=== PATIENT | male | born 1935 ===

== ENCOUNTER → 2017-10-10 11:03 | Outpatient (CLI) | payer OTHER, SELFPAY ==
[2017-10-10 12:17] LABS: INR 2.2 (0.9-1.3)
[2017-10-10 12:59] LABS: Appearance Urine UA CLOUDY; Bilirubin Urine UA NEGATIVE (NEGATIVE); Color Urine UA YELLOW; Glucose Urine UA NEGATIVE (Negative); Ketones Urine UA NEGATIVE (NEGATIVE); Leukocyte Esterase Urine UA 3+ (NEGATIVE); Nitrite Urine UA NEGATIVE (NEGATIVE); Occult Blood Urine UA 3+ (Negative); Protein Urine UA NEGATIVE (Negative); Specific Gravity Urine UA 1.015 (1.000-1.035); Urobilinogen Urine UA 0.2 E.U./dL (0.2)
[2017-10-10 13:08] LABS: RBC Urine 10-30/HPF (0-5/HPF)
[2017-10-10 13:09] LABS: Bacteria Urine Many (>30); Culture Indicated Urine Specimen Cultured; WBC Urine 30-100/HPF (0-5/HPF)
== END ==
PROVIDERS: Family Provider Emergency Medicine; PCP Family Medicine; Visit Provider Family Medicine
DX: I48.91 Unspecified atrial fibrillation (principal); N39.0 Urinary tract infection, site not specified
CPT/HCPCS: 36415; 81001; 85610; 87086; 87186

== ENCOUNTER → 2017-11-27 08:55 | Outpatient (CLI) | payer OTHER, SELFPAY ==
--- NOTE | 2017-11-27 | DI.CT.S_ITS ---
PROCEDURE: CT ABDOMEN PELVIS WO/W CON INDICATIONS: GROSS HEMATURIA PAINLESS TECHNIQUE: Optional 5 mm thick noncontrast images acquired from the diaphragm to the symphysis pubis. After the administration of intravenous contrast, 5 mm thick images acquired from the diaphragm to the symphysis pubis after a 10-minute delay. 2 mm thick coronal and sagittal reformats were then performed of the kidneys and ureters. For radiation dose reduction, the following was used: automated exposure control, adjustment of mA and/or kV according to patient size. COMPARISON: None. FINDINGS: Image quality: Excellent. Lung bases: Lung bases are clear. Heart size is at or just above the upper limits of normal. Urinary system: Both kidneys are normal in size, without hydronephrosis or nephrolithiasis on pre-contrast images. No perinephric fat stranding. There is normal bilateral renal enhancement. Renal calyces appear normal in morphology when filled with contrast. Opacified portions of both ureters demonstrate normal caliber. Bladder wall thickness is normal. No calcified bladder stones. Other solid organs: Liver is normal in size and enhancement. Gallbladder contains a large 2 cm gallstone but does not appear inflamed. Biliary system is non dilated. Pancreas enhances normally. Spleen is normal in size and enhancement. No adrenal nodules. Peritoneum and bowel: Bowel loops demonstrate normal wall thickness and caliber. No free fluid or air. Nodes and vessels: No retroperitoneal or mesenteric adenopathy by size criteria. Aorta and inferior vena cava are normal in size. Abdominal wall: No ventral hernias. Pelvis: No pathologic free pelvic fluid. No inguinal hernias or adenopathy. Prostatic enlargement. Bones: No suspicious bony lesions. No vertebral body compression fractures. IMPRESSION: Urinary tract stones are not identified, a urothelial mass lesion or renal cortical mass is not seen. Note is made of prominent enlargement of the prostate gland, with central and peripheral heterogeneity and peripheral zone calcifications greater on the right than the left. Dictated by: Serjio Fernando M.D. on 11/27/2017 at 13:58 Approved by: Serjio Fernando M.D. on 11/27/2017 at 14:00
[2017-11-27 09:25] LABS: BUN Creatinine Ratio 17.5 (6-22); Blood Urea Nitrogen 21 mg/dL (9-20); Estimated Glomerular Filt Rate 58.1 mL/min (>60)
== END ==
PROVIDERS: Family Provider Emergency Medicine; PCP Family Medicine; Visit Provider Urology
DX: R31.0 Gross hematuria (principal)
CPT/HCPCS: 36415; 74178; 82565; 84520; Q9967

== ENCOUNTER → 2017-12-04 12:05 | Outpatient (CLI) | payer OTHER, SELFPAY ==
[2017-12-04 12:52] LABS: INR 2.1 (0.9-1.3); Prothrombin Time 22.9 SECONDS (10.1-12.7)
[2017-12-04 13:34] LABS: Appearance Urine UA CLEAR; Bilirubin Urine UA NEGATIVE (NEGATIVE); Color Urine UA YELLOW; Glucose Urine UA NEGATIVE (Normal); Ketones Urine UA NEGATIVE (NEGATIVE); Leukocyte Esterase Urine UA TRACE (NEGATIVE); Nitrite Urine UA Negative (Negative); Occult Blood Urine UA 1+ (Negative); Protein Urine UA NEGATIVE (Negative); Urobilinogen Urine UA 0.2 E.U./dL (0.2)
[2017-12-04 14:03] LABS: RBC Urine 1-5/HPF (0-5/HPF); Squamous Epithelial Cell Urine 1-5 /HPF; WBC Urine 1-5/HPF (0-5/HPF)
[2017-12-04 14:04] LABS: Amorphous Sediment Urine 1+; Bacteria Urine Occasional (0-1); Culture Indicated Urine Specimen Cultured; Mucus Urine 1+ (Negative)
== END ==
PROVIDERS: Family Provider Emergency Medicine; PCP Family Medicine; Visit Provider Family Medicine
DX: N39.0 Urinary tract infection, site not specified (principal); I48.91 Unspecified atrial fibrillation
CPT/HCPCS: 36415; 81001; 85610; 87086

== ENCOUNTER → 2018-01-15 12:47 | Outpatient (CLI) | payer OTHER, SELFPAY ==
[2018-01-15 13:02] LABS: Bacteria Urine None Seen
[2018-01-15 13:33] LABS: Appearance Urine UA CLEAR; Bilirubin Urine UA NEGATIVE (NEGATIVE); Color Urine UA YELLOW; Glucose Urine UA NEGATIVE (Normal); Ketones Urine UA NEGATIVE (NEGATIVE); Leukocyte Esterase Urine UA TRACE (NEGATIVE); Nitrite Urine UA Negative (Negative); Occult Blood Urine UA 3+ (Negative); Protein Urine UA NEGATIVE (Negative); Specific Gravity Urine UA 1.025 (1.000-1.035); Urobilinogen Urine UA 0.2 E.U./dL (0.2)
[2018-01-15 13:47] LABS: Prothrombin Time 21.3 SECONDS (10.1-12.7); RBC Urine 5-10/HPF (0-5/HPF); WBC Urine 5-10/HPF (0-5/HPF)
[2018-01-15 13:48] LABS: Culture Indicated Urine Specimen Cultured
== END ==
PROVIDERS: PCP Family Medicine; Visit Provider Family Medicine
DX: N39.0 Urinary tract infection, site not specified (principal); I48.91 Unspecified atrial fibrillation
CPT/HCPCS: 36415; 81001; 85610; 87086

== ENCOUNTER → 2018-02-07 12:36 | Outpatient (CLI) | payer OTHER, SELFPAY ==
[2018-02-07 13:38] LABS: Appearance Urine UA CLEAR; Bilirubin Urine UA NEGATIVE (NEGATIVE); Color Urine UA YELLOW; Glucose Urine UA NEGATIVE (Normal); Ketones Urine UA NEGATIVE (NEGATIVE); Leukocyte Esterase Urine UA TRACE (NEGATIVE); Nitrite Urine UA Negative (Negative); Occult Blood Urine UA 3+ (Negative); Protein Urine UA NEGATIVE (Negative); Specific Gravity Urine UA 1.025 (1.000-1.035); Urobilinogen Urine UA 0.2 E.U./dL (0.2)
[2018-02-07 13:59] LABS: Bacteria Urine Few (2-10); RBC Urine 5-10/HPF (0-5/HPF); Squamous Epithelial Cell Urine 1-5 /HPF; WBC Urine 5-10/HPF (0-5/HPF)
[2018-02-07 14:00] LABS: Culture Indicated Urine Specimen Cultured
[2018-02-07 14:03] LABS: INR 1.7 (0.9-1.3); Prothrombin Time 18.7 SECONDS (10.1-12.7)
== END ==
PROVIDERS: Family Provider Emergency Medicine; PCP Family Medicine; Visit Provider Urology
DX: R31.0 Gross hematuria (principal)
CPT/HCPCS: 36415; 81001; 85610; 87086

== ENCOUNTER → 2018-03-13 12:35 | Outpatient (CLI) | payer OTHER, SELFPAY ==
[2018-03-13 13:40] LABS: Bilirubin Urine UA 1+ (NEGATIVE); Color Urine UA YELLOW; Glucose Urine UA NEGATIVE (Normal); Ketones Urine UA TRACE (NEGATIVE); Leukocyte Esterase Urine UA 2+ (NEGATIVE); Nitrite Urine UA NEGATIVE (Negative); Occult Blood Urine UA 2+ (Negative); Protein Urine UA 1+ (Negative); Specific Gravity Urine UA 1.025 (1.000-1.035); Urobilinogen Urine UA 0.2 E.U./dL (0.2); pH Urine UA 5.5 (4.5-8.0)
[2018-03-13 14:22] LABS: INR 2.9 (0.9-1.3); Prothrombin Time 31.9 SECONDS (10.1-12.7)
[2018-03-13 14:23] LABS: Appearance Urine UA Slightly Cloudy
[2018-03-13 14:25] LABS: Ictotest Urine Positive (Negative); RBC Urine 5-10/HPF (0-5/HPF); Squamous Epithelial Cell Urine 0-1 /HPF; WBC Urine 10-30/HPF (0-5/HPF)
[2018-03-13 14:26] LABS: Bacteria Urine Few (2-10); Culture Indicated Urine Specimen Cultured
== END ==
PROVIDERS: Family Provider Family Medicine; PCP Family Medicine; Referring Provider Urology; Visit Provider Emergency Medicine
DX: I48.91 Unspecified atrial fibrillation (principal); N39.0 Urinary tract infection, site not specified
CPT/HCPCS: 36415; 81001; 85610; 87077; 87086; 87186

== ENCOUNTER → 2018-04-04 11:09 | Outpatient (CLI) | payer OTHER, SELFPAY ==
[2018-04-04 11:26] LABS: Bacteria Urine None Seen; RBC Urine None Seen (0-5/HPF); WBC Urine None Seen (0-5/HPF)
[2018-04-04 11:59] LABS: INR 1.7 (0.9-1.3)
[2018-04-04 12:06] LABS: Appearance Urine UA CLEAR; Bilirubin Urine UA NEGATIVE (NEGATIVE); Color Urine UA YELLOW; Glucose Urine UA NEGATIVE (Normal); Ketones Urine UA NEGATIVE (NEGATIVE); Leukocyte Esterase Urine UA TRACE (NEGATIVE); Nitrite Urine UA NEGATIVE (Negative); Occult Blood Urine UA NEGATIVE (Negative); Protein Urine UA NEGATIVE (Negative); Urobilinogen Urine UA 0.2 E.U./dL (0.2); pH Urine UA 5.5 (4.5-8.0)
[2018-04-04 12:23] LABS: Culture Indicated Urine Cult Not Indicated; Urine Comments Microscopic Normal
== END ==
PROVIDERS: Family Provider Family Medicine; PCP Family Medicine; Visit Provider Family Medicine
DX: N39.0 Urinary tract infection, site not specified (principal); I48.91 Unspecified atrial fibrillation
CPT/HCPCS: 36415; 81001; 85610

== ENCOUNTER → 2018-04-17 12:16 | Outpatient (CLI) | payer OTHER, SELFPAY ==
[2018-04-17 12:34] LABS: Bacteria Urine None Seen
[2018-04-17 13:08] LABS: Appearance Urine UA CLEAR; Bilirubin Urine UA NEGATIVE (NEGATIVE); Color Urine UA YELLOW; Glucose Urine UA NEGATIVE (Normal); Ketones Urine UA NEGATIVE (NEGATIVE); Leukocyte Esterase Urine UA NEGATIVE (NEGATIVE); Nitrite Urine UA NEGATIVE (Negative); Occult Blood Urine UA TRACE-INTACT (Negative); Protein Urine UA NEGATIVE (Negative); Urobilinogen Urine UA 0.2 E.U./dL (0.2); pH Urine UA 5.5 (4.5-8.0)
[2018-04-17 13:29] LABS: Culture Indicated Urine Cult Not Indicated; RBC Urine 0-1/HPF (0-5/HPF); Squamous Epithelial Cell Urine 0-1 /HPF; WBC Urine 0-1/HPF (0-5/HPF)
[2018-04-17 15:04] LABS: Prothrombin Time 21.8 SECONDS (10.1-12.7)
== END ==
PROVIDERS: Family Provider Family Medicine; PCP Family Medicine; Visit Provider Family Medicine
DX: I48.91 Unspecified atrial fibrillation (principal); N39.0 Urinary tract infection, site not specified
CPT/HCPCS: 36415; 81001; 85610

== ENCOUNTER → 2018-05-06 13:31 | Outpatient (CLI) | payer OTHER, SELFPAY ==
[2018-05-06 14:15] LABS: Appearance Urine UA CLOUDY; Bilirubin Urine UA NEGATIVE (NEGATIVE); Color Urine UA YELLOW; Glucose Urine UA NEGATIVE (Normal); Ketones Urine UA NEGATIVE (NEGATIVE); Leukocyte Esterase Urine UA 1+ (NEGATIVE); Nitrite Urine UA NEGATIVE (Negative); Occult Blood Urine UA 3+ (Negative); Protein Urine UA TRACE (Negative); Specific Gravity Urine UA 1.025 (1.000-1.035); Urobilinogen Urine UA 0.2 E.U./dL (0.2)
[2018-05-06 14:33] LABS: Prothrombin Time 35.7 SECONDS (10.1-12.7)
[2018-05-06 14:44] LABS: Bacteria Urine Moderate (10-30); RBC Urine >100/HPF (0-5/HPF); Squamous Epithelial Cell Urine 1-5 /HPF; WBC Urine 5-10/HPF (0-5/HPF)
[2018-05-06 14:45] LABS: Culture Indicated Urine Specimen Cultured
== END ==
PROVIDERS: PCP Family Medicine; Referring Provider Urology; Visit Provider Emergency Medicine
DX: N39.0 Urinary tract infection, site not specified (principal); I48.91 Unspecified atrial fibrillation
CPT/HCPCS: 36415; 81001; 85610; 87086

== ENCOUNTER → 2018-05-28 11:49 | Outpatient (CLI) | payer OTHER, SELFPAY ==
[2018-05-28 12:17] LABS: RBC Urine None Seen (0-5/HPF)
[2018-05-28 12:38] LABS: INR 1.6 (0.9-1.3); Prothrombin Time 19.1 SECONDS (10.1-12.7)
[2018-05-28 12:39] LABS: Appearance Urine UA CLEAR; Bilirubin Urine UA NEGATIVE (NEGATIVE); Color Urine UA YELLOW; Glucose Urine UA NEGATIVE (Negative); Ketones Urine UA NEGATIVE (NEGATIVE); Leukocyte Esterase Urine UA 1+ (NEGATIVE); Nitrite Urine UA NEGATIVE (Negative); Occult Blood Urine UA TRACE-INTACT (Negative); Protein Urine UA NEGATIVE (Negative); Urobilinogen Urine UA 0.2 E.U./dL (0.2); pH Urine UA 5.5 (4.5-8.0)
[2018-05-28 12:42] LABS: Blood Urea Nitrogen 24 mg/dL (9-20)
[2018-05-28 12:48] LABS: WBC Urine 5-10/HPF (0-5/HPF)
[2018-05-28 12:49] LABS: Bacteria Urine Few (2-10); Culture Indicated Urine Specimen Cultured; Squamous Epithelial Cell Urine 1-5 /HPF
== END ==
PROVIDERS: PCP Family Medicine; Visit Provider Emergency Medicine
DX: N39.0 Urinary tract infection, site not specified (principal); I48.91 Unspecified atrial fibrillation; R31.0 Gross hematuria
CPT/HCPCS: 36415; 81001; 84520; 85610; 87086

== ENCOUNTER → 2018-07-10 14:25 | Outpatient (CLI) | payer OTHER, SELFPAY ==
[2018-07-10 15:19] LABS: INR 2.8 (0.9-1.3); Prothrombin Time 32.6 SECONDS (10.1-12.7)
== END ==
PROVIDERS: Family Provider Emergency Medicine; PCP Family Medicine; Referring Provider Urology; Visit Provider Family Medicine
DX: N39.0 Urinary tract infection, site not specified (principal); I48.91 Unspecified atrial fibrillation
CPT/HCPCS: 36415; 85610

== ENCOUNTER → 2018-08-07 09:43 | Outpatient (CLI) | payer OTHER, SELFPAY ==
[2018-08-07 11:07] LABS: INR 2.4 (0.9-1.3); Prothrombin Time 27.9 SECONDS (10.1-12.7)
== END ==
PROVIDERS: Emergency Medicine; PCP Family Medicine; Visit Provider Family Medicine
DX: N39.0 Urinary tract infection, site not specified (principal); I48.91 Unspecified atrial fibrillation
CPT/HCPCS: 36415; 85610

== ENCOUNTER → 2018-09-29 10:47 | Outpatient (CLI) | payer OTHER, SELFPAY ==
[2018-09-29 12:05] LABS: Appearance Urine UA CLEAR; Bilirubin Urine UA NEGATIVE (NEGATIVE); Color Urine UA YELLOW; Glucose Urine UA NEGATIVE (Negative); Ketones Urine UA NEGATIVE (NEGATIVE); Leukocyte Esterase Urine UA TRACE (NEGATIVE); Nitrite Urine UA NEGATIVE (Negative); Occult Blood Urine UA 2+ (Negative); Protein Urine UA NEGATIVE (Negative); Specific Gravity Urine UA 1.025 (1.000-1.035); Urobilinogen Urine UA 0.2 E.U./dL (0.2)
[2018-09-29 12:17] LABS: Bacteria Urine Few (2-10); Culture Indicated Urine Cult Not Indicated; RBC Urine 5-10/HPF (0-5/HPF); Squamous Epithelial Cell Urine 1-5 /HPF (0-5/HPF); WBC Urine 1-5/HPF (0-5/HPF)
[2018-09-29 12:36] LABS: INR 1.9 (0.9-1.3); Prothrombin Time 21.5 SECONDS (10.1-12.7)
== END ==
PROVIDERS: PCP Family Medicine; Visit Provider Emergency Medicine
DX: I48.91 Unspecified atrial fibrillation (principal); N39.0 Urinary tract infection, site not specified
CPT/HCPCS: 36415; 81001; 85610

== ENCOUNTER → 2018-10-31 10:24 | Outpatient (CLI) | payer OTHER, SELFPAY ==
[2018-10-31 10:50] LABS: Bacteria Urine None Seen
[2018-10-31 11:53] LABS: Appearance Urine UA CLEAR; Bilirubin Urine UA NEGATIVE (NEGATIVE); Color Urine UA YELLOW; Glucose Urine UA NEGATIVE (Negative); Ketones Urine UA NEGATIVE (NEGATIVE); Leukocyte Esterase Urine UA 1+ (NEGATIVE); Nitrite Urine UA NEGATIVE (Negative); Occult Blood Urine UA 3+ (Negative); Protein Urine UA NEGATIVE (Negative); Specific Gravity Urine UA 1.015 (1.000-1.035); Urobilinogen Urine UA 0.2 E.U./dL (0.2); pH Urine UA 6.5 (4.5-8.0)
[2018-10-31 11:54] LABS: INR 2.1 (0.9-1.3); Prothrombin Time 24.4 SECONDS (10.1-12.7)
[2018-10-31 12:09] LABS: Culture Indicated Urine Cult Not Indicated; RBC Urine 10-30/HPF (0-5/HPF); Squamous Epithelial Cell Urine 5-10 /HPF (0-5/HPF); WBC Urine 10-30/HPF (0-5/HPF)
== END ==
PROVIDERS: PCP Family Medicine; Visit Provider Family Medicine
DX: N39.0 Urinary tract infection, site not specified (principal); I48.91 Unspecified atrial fibrillation
CPT/HCPCS: 36415; 81001; 85610

== ENCOUNTER → 2018-12-23 11:21 | Outpatient (CLI) | payer OTHER, MEDICARE, SELFPAY ==
[2018-12-23 12:17] LABS: INR 2.3 (0.9-1.3); Prothrombin Time 26.4 SECONDS (10.1-12.7)
[2018-12-23 12:37] LABS: Appearance Urine UA CLOUDY; Bilirubin Urine UA NEGATIVE (NEGATIVE); Color Urine UA YELLOW; Glucose Urine UA NEGATIVE (Negative); Ketones Urine UA NEGATIVE (NEGATIVE); Leukocyte Esterase Urine UA 3+ (NEGATIVE); Nitrite Urine UA NEGATIVE (Negative); Occult Blood Urine UA 3+ (Negative); Protein Urine UA NEGATIVE (Negative); Urobilinogen Urine UA 0.2 E.U./dL (0.2)
[2018-12-23 12:44] LABS: Bacteria Urine Many (>30); RBC Urine 10-30/HPF (0-5/HPF); Renal Epithelial Cells Urine 5-10/HPF (0-1/HPF); Squamous Epithelial Cell Urine 1-5 /HPF (0-5/HPF); WBC Urine 10-30/HPF (0-5/HPF)
[2018-12-23 12:45] LABS: Culture Indicated Urine Specimen Cultured
== END ==
PROVIDERS: Visit Provider Family Medicine
DX: N39.0 Urinary tract infection, site not specified (principal)
CPT/HCPCS: 36415; 81001; 85610; 87077; 87086; 87186

== ENCOUNTER → 2019-01-21 09:49 | Outpatient (CLI) | payer OTHER, MEDICARE, SELFPAY ==
[2019-01-21 10:32] LABS: INR 2.8 (0.9-1.3); Prothrombin Time 33.4 SECONDS (10.1-12.7)
[2019-01-21 10:35] LABS: Hemoglobin A1C% w Est Avg Glu 5.7 % (4.0-6.0)
[2019-01-21 10:36] LABS: Hematocrit 43.5 % (41-53); Hemoglobin 14.9 g/dL (13.5-17.5); Mean Corpuscular HGB Conc 34.4 % (30-36); Mean Corpuscular Hemoglobin 31.2 PG (26-34); Mean Corpuscular Volume 90.7 fL (80-100); Platelet Count 274 X10^3/uL (150-400); Red Cell Distribution Width 14.2 % (11.6-14.8); White Blood Cell Count 6.3 X10^3/uL (4.5-11.0)
[2019-01-21 10:54] LABS: Alanine Aminotransferase 19 IU/L (21-72); Albumin 4.2 g/dL (3.5-5.0); Albumin Globulin Ratio 1.3 (1.0-2.8); Alkaline Phosphatase 71 U/L (38-126); Aspartate Aminotransferase 31 IU/L (17-59); BUN Creatinine Ratio 16.4 (6-22); Bilirubin Total 1.8 mg/dL (0.2-1.3); Blood Urea Nitrogen 18 mg/dL (9-20); Calcium 10.2 mg/dL (8.4-10.2); Carbon Dioxide 30 mmol/L (22-32); Chloride 99 mmol/L (98-107); Cholesterol 179 mg/dL (140-199); Estimated Glomerular Filt Rate > 60.0 mL/min (>60); Globulin 3.3 g/dL (1.7-4.1); Glucose 143 mg/dL (80-110); HDL Cholesterol 50 mg/dL (40-60); HEMOLYSIS < 15 (0-50); LDL Cholesterol Calculated 109 mg/dL (<100); Potassium 4.4 mmol/L (3.4-5.1); Sodium 139 mmol/L (137-145); Total Protein 7.5 g/dL (6.3-8.2); Triglycerides 102 mg/dL (35-150)
[2019-01-21 11:09] LABS: Appearance Urine UA CLEAR; Bilirubin Urine UA NEGATIVE (NEGATIVE); Color Urine UA YELLOW; Glucose Urine UA NEGATIVE (Negative); Ketones Urine UA NEGATIVE (NEGATIVE); Leukocyte Esterase Urine UA 1+ (NEGATIVE); Nitrite Urine UA NEGATIVE (Negative); Occult Blood Urine UA 3+ (Negative); Protein Urine UA NEGATIVE (Negative); Urobilinogen Urine UA 0.2 E.U./dL (0.2)
[2019-01-21 11:21] LABS: Bacteria Urine Few (2-10); Culture Indicated Urine Specimen Cultured; RBC Urine >100/HPF (0-5/HPF); Squamous Epithelial Cell Urine 1-5 /HPF (0-5/HPF); WBC Urine 5-10/HPF (0-5/HPF)
[2019-01-21 11:25] LABS: Thyroid Stimulating Hormone 1.21 uIU/mL (0.47-4.68)
[2019-01-21 11:57] LABS: Neutrophils Absolute Manual 4095 /uL (3000-5900); Total Cells Counted 100
[2019-01-21 11:58] LABS: Poikilocytosis 1+
== END ==
PROVIDERS: Family Provider Family Medicine; PCP Family Medicine; Visit Provider Emergency Medicine
DX: I42.8 Other cardiomyopathies (principal); N39.0 Urinary tract infection, site not specified; E11.9 Type 2 diabetes mellitus without complications; I10 Essential (primary) hypertension; I48.91 Unspecified atrial fibrillation
CPT/HCPCS: 36415; 80053; 80061; 81001; 83036; 84443; 85025; 85610; 87086

== ENCOUNTER → 2019-03-13 16:48 | Outpatient (CLI) | payer OTHER, SELFPAY ==
[2019-03-13 17:25] LABS: Appearance Urine UA SL CLOUDY; Bilirubin Urine UA NEGATIVE (NEGATIVE); Color Urine UA YELLOW; Glucose Urine UA NEGATIVE (Negative); Ketones Urine UA NEGATIVE (NEGATIVE); Leukocyte Esterase Urine UA 2+ (NEGATIVE); Nitrite Urine UA NEGATIVE (Negative); Occult Blood Urine UA 3+ (Negative); Protein Urine UA NEGATIVE (Negative); Urobilinogen Urine UA 0.2 E.U./dL (0.2)
[2019-03-13 17:31] LABS: Bacteria Urine Few (2-10); Culture Indicated Urine Specimen Cultured; RBC Urine 10-30/HPF (0-5/HPF); Squamous Epithelial Cell Urine 0-1 /HPF (0-5/HPF); WBC Urine 10-30/HPF (0-5/HPF)
[2019-03-13 17:39] LABS: INR 1.8 (0.9-1.3); Prothrombin Time 20.9 SECONDS (10.1-12.7)
== END ==
PROVIDERS: Family Provider Family Medicine; PCP Family Medicine; Visit Provider Emergency Medicine
DX: N39.0 Urinary tract infection, site not specified (principal); I42.8 Other cardiomyopathies
CPT/HCPCS: 36415; 81001; 85610; 87086

== ENCOUNTER → 2019-04-01 13:34 | Outpatient (CLI) | payer OTHER, SELFPAY ==
[2019-04-01 13:50] LABS: Bacteria Urine None Seen
[2019-04-01 14:40] LABS: Appearance Urine UA SL CLOUDY; Bilirubin Urine UA NEGATIVE (NEGATIVE); Color Urine UA YELLOW; Glucose Urine UA NEGATIVE (Negative); Ketones Urine UA NEGATIVE (NEGATIVE); Leukocyte Esterase Urine UA 2+ (NEGATIVE); Nitrite Urine UA NEGATIVE (Negative); Occult Blood Urine UA 3+ (Negative); Protein Urine UA NEGATIVE (Negative); Specific Gravity Urine UA 1.015 (1.000-1.035); Urobilinogen Urine UA 0.2 E.U./dL (0.2); pH Urine UA 5.5 (4.5-8.0)
[2019-04-01 14:57] LABS: INR 2.5 (0.9-1.3); Prothrombin Time 28.7 SECONDS (10.1-12.7)
[2019-04-01 14:58] LABS: RBC Urine 10-30/HPF (0-5/HPF); Squamous Epithelial Cell Urine 0-1 /HPF (0-5/HPF); WBC Urine 5-10/HPF (0-5/HPF)
[2019-04-01 14:59] LABS: Culture Indicated Urine Specimen Cultured
== END ==
PROVIDERS: Family Provider Urology; PCP Family Medicine; Visit Provider Emergency Medicine
DX: I42.8 Other cardiomyopathies (principal); N39.0 Urinary tract infection, site not specified
CPT/HCPCS: 36415; 81001; 85610; 87086

== ENCOUNTER → 2019-04-29 11:05 | Outpatient (CLI) | payer OTHER, SELFPAY ==
[2019-04-29 12:05] LABS: Add Manual Diff / Slide Review NO; Basophils Absolute Auto 0 /uL (0-100); Basophils Percent Auto 0.3 % (0-2); Eosinophils Absolute Auto 0 /uL (0-450); Eosinophils Percent Auto 0.4 % (2-4); Hemoglobin 15.5 g/dL (13.5-17.5); INR 1.8 (0.9-1.3); Lymphocytes Absolute Auto 900 /uL (1100-4500); Lymphocytes Percent Auto 6.9 % (25-40); Mean Corpuscular HGB Conc 34.5 % (30-36); Mean Corpuscular Volume 89.9 fL (80-100); Monocytes Absolute Auto 900 /uL (0-900); Monocytes Percent Auto 6.8 % (3-14); Neutrophils Absolute Auto 10700 /uL (1500-7000); Neutrophils Percent Auto 85.6 % (50-75); Platelet Count 264 X10^3/uL (150-400); Prothrombin Time 20.8 SECONDS (10.1-12.7); Red Cell Distribution Width 14.3 % (11.6-14.8); White Blood Cell Count 12.5 X10^3/uL (4.5-11.0)
== END ==
PROVIDERS: Family Provider Urology; PCP Family Medicine; Referring Provider Internal Medicine Critical Care Medicine; Visit Provider Emergency Medicine
DX: I48.20 Chronic atrial fibrillation, unspecified (principal)
CPT/HCPCS: 36415; 82565; 85025; 85610

== ENCOUNTER → 2019-05-05 06:55 | Outpatient (CLI) | payer OTHER, SELFPAY ==
--- NOTE | 2019-05-05 | DI.US.S_ITS ---
PROCEDURE: US SCROTUM INDICATIONS: scrotum pain TECHNIQUE: Real-time scanning was performed of the scrotum and testicles, with image documentation. Color and pulse Doppler interrogation was performed of both testicles. COMPARISON: [facility], CT, CT ABDOMEN PELVIS WO/W CON, 11/27/2017, 9:29. FINDINGS: Right: Testicle is normal in size at 3.9 x 2.5 x 2.8 cm, and homogenous in echotexture. Epididymis is normal in overall size and morphology. No hydrocele or varicoceles. Overlying scrotal skin is normal in thickness. Left: Testicle is normal in size at 3.6 x 1.9 x 2.2 cm, and homogeneous in echotexture. Epididymis is thickened and heterogeneous in appearance with increased vascularity. A large left hydrocele present with internal echoes and multiple internal septations. The scrotal is thickened measuring 4.0 mm. Doppler: Color and pulse Doppler demonstrate patent arterial flow in both testicles. IMPRESSION: 1. Abnormal thickening and heterogeneity of the left epididymis with increased vascularity. Findings are suggestive of epididymoorchitis. 2. Thickening of the left scrotal wall with a complex septated hydrocele which may be related to developing pyocele. Recommend close clinical correlation and followup. Dictated by: Gagan LEMA Interpreted: Art Campos MD on 05/05/2019 at 12:41 Approved by: Art Campos M.D. on 05/05/2019 at 16:31
== END ==
PROVIDERS: Family Provider Urology; PCP Family Medicine; Visit Provider Urology
DX: N50.82 Scrotal pain (principal); N43.3 Hydrocele, unspecified
CPT/HCPCS: 76870

== ENCOUNTER → 2019-07-22 15:46 | Outpatient (CLI) | payer OTHER, SELFPAY ==
[2019-07-22 16:30] LABS: Appearance Urine UA CLOUDY; Bilirubin Urine UA NEGATIVE (NEGATIVE); Color Urine UA YELLOW; Glucose Urine UA NEGATIVE (Negative); Ketones Urine UA TRACE (NEGATIVE); Leukocyte Esterase Urine UA 2+ (NEGATIVE); Nitrite Urine UA NEGATIVE (Negative); Occult Blood Urine UA 2+ (Negative); Protein Urine UA TRACE (Negative); Urobilinogen Urine UA 0.2 E.U./dL (0.2)
[2019-07-22 16:39] LABS: RBC Urine 10-30/HPF (0-5/HPF); WBC Urine >100/HPF (0-5/HPF)
[2019-07-22 16:40] LABS: Bacteria Urine Many (>30); Culture Indicated Urine Specimen Cultured; Squamous Epithelial Cell Urine 1-5 /HPF (0-5/HPF)
== END ==
PROVIDERS: Family Provider Urology; PCP Internal Medicine; Referring Provider Family Medicine; Visit Provider Family Medicine
DX: N39.0 Urinary tract infection, site not specified (principal)
CPT/HCPCS: 81001; 87077; 87086; 87186

== ENCOUNTER → 2019-10-22 13:58 | Outpatient (CLI) | payer OTHER, SELFPAY ==
[2019-10-22 14:54] LABS: Add Manual Diff / Slide Review NO; Basophils Absolute Auto 0 /uL (0-100); Basophils Percent Auto 0.5 % (0-2); Eosinophils Absolute Auto 200 /uL (0-450); Eosinophils Percent Auto 2.1 % (2-4); Hematocrit 38.6 % (41-53); Hemoglobin 13.6 g/dL (13.5-17.5); Lymphocytes Absolute Auto 1700 /uL (1100-4500); Lymphocytes Percent Auto 22.9 % (25-40); Mean Corpuscular HGB Conc 35.3 % (30-36); Mean Corpuscular Hemoglobin 32.1 PG (26-34); Mean Corpuscular Volume 90.9 fL (80-100); Monocytes Absolute Auto 800 /uL (0-900); Monocytes Percent Auto 11.4 % (3-14); Neutrophils Absolute Auto 4600 /uL (1500-7000); Neutrophils Percent Auto 63.1 % (50-75); Platelet Count 270 X10^3/uL (150-400); Red Blood Cell Count 4.25 X10^6/uL (4.5-5.9); Red Cell Distribution Width 13.9 % (11.6-14.8); White Blood Cell Count 7.2 X10^3/uL (4.5-11.0)
[2019-10-22 15:27] LABS: Alanine Aminotransferase 20 IU/L (<50); Albumin 4.2 g/dL (3.5-5.0); Albumin Globulin Ratio 1.2 (1.0-2.8); Alkaline Phosphatase 59 U/L (38-126); Aspartate Aminotransferase 31 IU/L (17-59); BUN Creatinine Ratio 19.8 (6-22); Bilirubin Total 1.2 mg/dL (0.2-1.3); Blood Urea Nitrogen 22 mg/dL (9-20); Calcium 9.7 mg/dL (8.4-10.2); Carbon Dioxide 32 mmol/L (22-32); Chloride 99 mmol/L (98-107); Estimated Glomerular Filt Rate > 60.0 mL/min (>60); Globulin 3.4 g/dL (1.7-4.1); Glucose 139 mg/dL (80-110); HEMOLYSIS < 15 (0-50); Potassium 4.5 mmol/L (3.4-5.1); Sodium 135 mmol/L (137-145); Total Protein 7.6 g/dL (6.3-8.2)
[2019-10-22 16:12] LABS: TSH w/ Reflex to FT4 1.56 uIU/mL (0.47-4.68)
[2019-10-22 16:42] LABS: Digoxin 0.5 ng/mL (0.8-2.0)
== END ==
PROVIDERS: Family Provider Urology; PCP Internal Medicine; Referring Provider Family Medicine; Visit Provider Family Medicine
DX: I48.20 Chronic atrial fibrillation, unspecified (principal); I48.91 Unspecified atrial fibrillation
CPT/HCPCS: 36415; 80053; 80162; 84443; 85025

== ENCOUNTER → 2019-11-30 10:20 | Outpatient (CLI) | payer OTHER, SELFPAY | PROVIDERS: Family Provider Urology; PCP Family Medicine; Referring Provider Internal Medicine Cardiovascular Disease; Visit Provider Internal Medicine Cardiovascular Disease | DX: I47.2 Ventricular tachycardia (principal); I48.20 Chronic atrial fibrillation, unspecified | CPT/HCPCS: 93005; 93010 ==

== ENCOUNTER → 2019-12-21 08:51 | Outpatient (CLI) | payer OTHER, SELFPAY ==
[2019-12-21 09:21] LABS: Bacteria Urine None Seen; WBC Urine None Seen (0-5/HPF)
[2019-12-21 10:28] LABS: Hemoglobin A1C% w Est Avg Glu 6.1 % (4.0-6.0)
[2019-12-21 10:29] LABS: INR 1.5 (0.9-1.3)
[2019-12-21 10:38] LABS: Alanine Aminotransferase 17 IU/L (<50); Albumin Globulin Ratio 1.2 (1.0-2.8); Alkaline Phosphatase 57 U/L (38-126); Aspartate Aminotransferase 30 IU/L (17-59); BUN Creatinine Ratio 19.4 (6-22); Bilirubin Total 1.3 mg/dL (0.2-1.3); Blood Urea Nitrogen 19 mg/dL (9-20); Calcium 9.9 mg/dL (8.4-10.2); Carbon Dioxide 26 mmol/L (22-32); Chloride 98 mmol/L (98-107); Estimated Glomerular Filt Rate > 60.0 mL/min (>60); Globulin 3.3 g/dL (1.7-4.1); Glucose 148 mg/dL (80-110); HEMOLYSIS < 15 (0-50); Potassium 3.9 mmol/L (3.4-5.1); Sodium 132 mmol/L (137-145); Total Protein 7.3 g/dL (6.3-8.2)
[2019-12-21 10:46] LABS: NT-proBNP (BNP-Adult 18+) 585 pg/mL (<450)
[2019-12-21 11:07] LABS: Prostate Specific Antigen 4.01 ng/mL (0.10-4.00)
[2019-12-21 11:26] LABS: Appearance Urine UA CLEAR; Bilirubin Urine UA NEGATIVE (NEGATIVE); Color Urine UA YELLOW; Digoxin < 0.4 ng/mL (0.8-2.0); Glucose Urine UA NEGATIVE (Negative); Ketones Urine UA NEGATIVE (NEGATIVE); Leukocyte Esterase Urine UA TRACE (NEGATIVE); Nitrite Urine UA NEGATIVE (Negative); Occult Blood Urine UA 2+ (Negative); Protein Urine UA NEGATIVE (Negative); Specific Gravity Urine UA 1.015 (1.000-1.035); Urobilinogen Urine UA 0.2 E.U./dL (0.2); pH Urine UA 6.5 (4.5-8.0)
[2019-12-21 11:30] LABS: Culture Indicated Urine Cult Not Indicated; RBC Urine 10-30/HPF (0-5/HPF); Squamous Epithelial Cell Urine 10-30 /HPF (0-5/HPF)
== END ==
PROVIDERS: Family Provider Urology; PCP Family Medicine; Referring Provider Emergency Medicine; Visit Provider Emergency Medicine
DX: I42.8 Other cardiomyopathies (principal); N39.0 Urinary tract infection, site not specified; I48.20 Chronic atrial fibrillation, unspecified; E11.9 Type 2 diabetes mellitus without complications; I25.10 Atherosclerotic heart disease of native coronary artery without angina pectoris
CPT/HCPCS: 36415; 80053; 80162; 81001; 83036; 83880; 84153; 85610

== ENCOUNTER 2020-02-13 11:22 | Observation (INO) | payer OTHER, SELFPAY ==
[2020-02-13] VITALS (13 sets, daily range): BP systolic 127–159; BP diastolic 69–97; PULSE 80–102; RESP 14–28; TEMP 36.3–36.7; O2SAT 96–100; BMI 28.0
--- NOTE | 2020-02-13 11:35 | ED_ITS ---
HPI - Dizziness General Chief Complaint: Neuro Symptoms/Deficit Stated Complaint: dizziness, nausea Time Seen by Provider: 02/13/20 11:25 Source: patient and family Mode of arrival: Ambulatory Limitations: no limitations History of Present Illness HPI Narrative: 84-year-old male nonsmoker with history of AFib, hypertension presents with family in the chief complaint of difficulty ambulating due to ataxia since evening. He had been using a cane because it was so difficult for him to ambulate. He denies any other neurologic symptoms such as blurred vision, trouble with speech or focal neurologic weakness. He denies any chest pain or shortness of breath. He denies fever or chills. He does have a h istory of chronic AFib and is on Pradaxa. He denies any recent injury or fall. He denies dizziness. He denies sensation that the room is spinning. 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 MD complaint: difficulty walking Onset (ago): day(s) Timing: unsure Description: off-balance and difficulty walking History of similar episodes: No History of trauma: No Severity: moderate Relieving factors: nothing Exacerbating factors: nothing Associated symptoms: denies other symptoms Related Data Home Medications Medication Instructions Recorded Confirmed metoprolol tartrate 100 mg tablet 150 mg PO BID tab 11/04/19 02/13/20 cephalexin [Keflex] 500 mg PO QAM 02/13/20 02/13/20 tamsulosin [Flomax] 0.4 mg PO QAM 02/13/20 02/13/20 Previous Rx's Medication Instructions Recorded dabigatran etexilate 150 mg capsule 150 mg PO BID #180 cap 08/12/19 hydrochlorothiazide 25 mg tablet 25 mg PO HS #90 tab 08/12/19 losartan 25 mg tablet 25 mg PO BID #180 tab 08/12/19 spironolactone 25 mg tablet 25 mg PO QDAY #90 tab 08/12/19 blood-glucose meter #1 each 09/09/19 Allergies Allergy/AdvReac Type Severity Reaction Status Date / Time lisinopril [LISINOPRIL] AdvReac Mild DRY COUGH Verified 02/13/20 11:46 Review of Systems Constitutional Constitutional: Denies chills, Denies fatigue, Denies fever(s), Denies frequent falls, Denies lethargy and Denies weakness Eyes Eyes: Denies change in vision, Denies eye discharge, Denies irritation and Denies loss of vision ENT Ears, Nose, Mouth, and Throat: Denies change in voice, Denies dizziness, Denies neck pain, Reports disequilibrium, Denies sore throat and Denies throat swelling Cardiovascular Cardiovascular: Denies chest pain, Denies irregular heart rhythm, Denies lightheadedness, Denies palpitations, Denies dyspnea, Denies dyspnea on exertion and Denies orthopnea Respiratory Respiratory: Denies cough, Denies dyspnea, Denies dyspnea on exertion and Denies wheezing Gastrointestinal Gastrointestinal: Denies abdominal pain, Denies change in bowel habits, Denies diarrhea, Denies nausea and Denies vomiting Musculoskeletal Musculoskeletal: Denies neck pain and Denies numbness Integumentary/Breasts Skin/Breast: Denies pruritus, Denies erythema, Denies rash and Denies wounds Neurologic Neurologic: Denies behavioral changes, Denies confusion, Denies dizziness, Denies frequent falls, Reports lack of coordination, Denies loss of vision, Denies numbness, Reports disequilibrium and Denies weakness Comments: Ataxia Psychiatric Psychiatric: Denies anxiety, Denies behavioral changes, Denies confusion, Denies depression, Denies homicidal ideation and Denies suicidal ideation Endocrine Endocrine: Denies fatigue, Denies flushing and Denies palpitations Hematologic/Lymphatic Hematologic/Lymphatic: Denies easy bruising Allergic/Immunologic Allergic/Immunologic: Denies urticaria, Denies throat swelling and Denies wheezing Patient History Medical History (Updated 02/13/20 @ 15:52 by Evaristo Max MD) Atrial fibrillation, chronic (Acute) BPH (benign prostatic hyperplasia) (Acute) Coronary artery disease (Acute) Hyperlipidemia (Acute) Hypertension (Acute) Type 2 diabetes mellitus (Acute) Surgical History (Updated 02/13/20 @ 15:50 by Evaristo Max MD) AICD (automatic cardioverter/defibrillator) present (Acute) Social History Smoking Status: Never smoker alcohol intake: former substance use type: marijuana Smoking Status: Never smoker Exam Narrative Exam Narrative: GENERAL: [84] year old patient appears stated age. Well- nourished, well-developed patient, in mild distress. HEAD: Atraumatic. Normocephalic. EYES: Pupils equal round and reactive. Extraocular motions intact. No scleral icterus. No injection or drainage. ENT: Nose without bleeding, purulent drainage. Throat without erythema, tonsillar hypertrophy or exudate. Airway patent. NECK: Trachea midline. Non tender CARDIOVASCULAR: Regular rate and rhythm without murmurs, gallops, or rubs. RESPIRATORY: Clear to auscultation. Breath sounds equal bilaterally. No wheezes, rales, or rhonchi. GASTROINTESTINAL: Abdomen soft, non-tender, nondistended. EXTREMITIES: No edema or joint tenderness. BACK: Nontender without deformity or crepitance. No flank tenderness. NEURO: AOx3. SKIN: No rash or erythema of visible areas Initial Vital Signs Initial Vital Signs: Vital Signs Temperature 98.1 F 02/13/20 11:25 Pulse Rate 102 H 02/13/20 11:25 Respiratory Rate 18 02/13/20 11:25 Blood Pressure 159/97 H 02/13/20 11:25 Pulse Oximetry 97 02/13/20 11:25 Scores NIH Stroke Scale Level of Conciousness: Alert, keenly responsive Ask month/age: Answers both questions correctly. Open/close eyes, close hand: Performs both tasks correctly Best gaze horizontal: Normal Visual ravi: No visual loss Facial palsy: Normal symetrical movement Left arm drift: No drift for full 10 sec Right arm drift: No drift for full 10 sec Left leg drift: No drift for full 5 sec Right leg drift: No drift for full 5 sec Limb ataxia: Absent Sensory on face/arms/legs: Normal, no sensory loss Best language: No aphasia, normal Dysarthria: Normal Extinction or inattention: No abnormality Total NIH Stroke scale score: 0 Course Orders Ordered: ED Orders 02/13/20 11:41 Complete Blood Count AUTO DIFF Stat Comprehensive Metabolic Panel Stat Digoxin Stat NT-proBNP (BNP-Adult 18+) Stat Troponin & CK Cardiac Panel Stat 02/13/20 11:44 CT head/brain wo con Stat 02/13/20 12:42 CT angio head and neck Stat 02/13/20 13:35 COVID19 -ED/INPAT/OR/L&D Stat 02/13/20 14:45 Urine Culture Stat Urine Microscopic Stat Acetaminophen (Tylenol) 650 mg PO Q6HR PRN PRN Reason: Fever/Mild Pain (1-3) Dabigatran (Pradaxa) 150 mg PO BID [facility] Hydrochlorothiazide (Hydrochlorothiazide) 25 mg PO BEDTIME JACK Losartan Potassium (Cozaar) 25 mg PO BID JACK Metoprolol Tartrate (Lopressor) 150 mg PO BID JACK Spironolactone (Aldactone) 25 mg PO DAILY [facility] Tamsulosin HCl (Flomax) 0.4 mg PO DAILY JACK Vital Signs Vital signs: Vital Signs - 8 hr 02/13/20 11:25 02/13/20 13:35 02/13/20 14:00 Temperature 98.1 F Pulse Rate 102 H 87 81 Respiratory Rate 18 28 H 26 H Blood Pressure 159/97 H Pulse Oximetry 97 99 98 02/13/20 14:30 02/13/20 15:00 Temperature Pulse Rate 84 88 Respiratory Rate 14 18 Blood Pressure Pulse Oximetry 96 99 MDM - Dizziness Lab Data Result diagrams: 02/13/20 11:41 02/13/20 11:41 Labs: Lab Results 02/13/20 02/13/20 02/13/20 Range/Units 11:41 11:41 11:41 WBC 11.4 H (4.5-11.0) X10^3/uL RBC 4.90 (4.5-5.9) X10^6/uL Hgb 15.3 (13.5-17.5) g/dL Hct 44.9 (41-53) % MCV 91.5 (80-100) fL MCH 31.3 (26-34) PG MCHC 34.2 (30-36) % RDW 13.2 (11.6-14.8) % Plt Count 298 (150-400) X10^3/uL Neut % (Auto) 83.4 H (50-75) % Lymph % (Auto) 9.5 L (25-40) % Millard % (Auto) 6.3 (3-14) % Eos % (Auto) 0.3 L (2-4) % Baso % (Auto) 0.5 (0-2) % Neut # (Auto) 9500 H (5835-1077) /uL Lymph # (Auto) 1100 (7066-4678) /uL Millard # (Auto) 700 (0-900) /uL Eos # (Auto) 0 (0-450) /uL Baso # (Auto) 100 (0-100) /uL Sodium 129 L (137-145) mmol/L Potassium 4.2 (3.4-5.1) mmol/L Chloride 93 L (98-107) mmol/L Carbon Dioxide 23 (22-32) mmol/L BUN 20 (9-20) mg/dL Creatinine 1.08 (0.66-1.25) mg/dL Estimated GFR > 60.0 (>60) mL/min BUN/Creatinine Ratio 18.5 (6-22) Glucose 231 H (80-110) mg/dL Calcium 10.0 (8.4-10.2) mg/dL Total Bilirubin 2.0 H (0.2-1.3) mg/dL AST 35 (17-59) IU/L ALT 23 (<50) IU/L Alkaline Phosphatase 69 (38-126) U/L Total Creatine Kinase 65 (55-170) U/L CK-MB (CK-2) TNP CK-MB (CK-2) Rel Index TNP Troponin I < 0.012 (0.01-0.034) ng/mL NT-Pro-B Natriuret Pep 570 H (<450) pg/mL Total Protein 8.3 H (6.3-8.2) g/dL Albumin 4.4 (3.5-5.0) g/dL Globulin 3.9 (1.7-4.1) g/dL Albumin/Globulin Ratio 1.1 (1.0-2.8) Urine RBC (0-5/HPF) Urine WBC (0-5/HPF) Urine Bacteria (None) Ur Culture Indicated? Digoxin < 0.4 L (0.8-2.0) ng/mL COVID-19 PCR (Negative) 02/13/20 02/13/20 Range/Units 13:35 14:45 WBC (4.5-11.0) X10^3/uL RBC (4.5-5.9) X10^6/uL Hgb (13.5-17.5) g/dL Hct (41-53) % MCV (80-100) fL MCH (26-34) PG MCHC (30-36) % RDW (11.6-14.8) % Plt Count (150-400) X10^3/uL Neut % (Auto) (50-75) % Lymph % (Auto) (25-40) % Millard % (Auto) (3-14) % Eos % (Auto) (2-4) % Baso % (Auto) (0-2) % Neut # (Auto) (6057-4888) /uL Lymph # (Auto) (5265-9491) /uL Millard # (Auto) (0-900) /uL Eos # (Auto) (0-450) /uL Baso # (Auto) (0-100) /uL Sodium (137-145) mmol/L Potassium (3.4-5.1) mmol/L Chloride (98-107) mmol/L Carbon Dioxide (22-32) mmol/L BUN (9-20) mg/dL Creatinine (0.66-1.25) mg/dL Estimated GFR (>60) mL/min BUN/Creatinine Ratio (6-22) Glucose (80-110) mg/dL Calcium (8.4-10.2) mg/dL Total Bilirubin (0.2-1.3) mg/dL AST (17-59) IU/L ALT (<50) IU/L Alkaline Phosphatase (38-126) U/L Total Creatine Kinase (55-170) U/L CK-MB (CK-2) CK-MB (CK-2) Rel Index Troponin I (0.01-0.034) ng/mL NT-Pro-B Natriuret Pep (<450) pg/mL Total Protein (6.3-8.2) g/dL Albumin (3.5-5.0) g/dL Globulin (1.7-4.1) g/dL Albumin/Globulin Ratio (1.0-2.8) Urine RBC 5-10/hpf H (0-5/HPF) Urine WBC 30-100/hpf H (0-5/HPF) Urine Bacteria Many (>30) H (None) Ur Culture Indicated? Specimen cultured Digoxin (0.8-2.0) ng/mL COVID-19 PCR Negative (Negative) Urine Dip Bedside Urine Glucose Negative Bedside Urine Bilirubin - Negative Bedside Urine Ketone - Negative Urine Specific [place] 1.005 Bedside Urine Occult Blood + Bedside Urine pH 6.0 Bedside Urine Protein - Negative Bedside Urine Urobilinogen +/- 1mg Bedside Urine Nitrite + Positive Bedside Urine Leukocytes ++ 125 Esterase MDM Narrative Medical decision making narrative: Patient with significant, albeit improving, ataxia. Previously requiring significant help from and cane. Now just cane. No dizziness. No spinning. Not reproducible. No other focal findings. Also, hyponatremia, but not significant and not obvious cause of symptoms. Patient will require hospitalization for further evaluation. Discharge Plan Departure Patient Disposition: Admitted as Observation Clinical Impression: Acute hyponatremia, Ataxia Referrals: Boyd Fairchild DO [Primary Care Provider] - Admit Date/Time: 02/13/20 15:34 Admit Provider: Evaristo Max
--- NOTE | 2020-02-13 11:44 | DI.CT.S_ITS ---
PROCEDURE: CT HEAD/BRAIN WO CON INDICATIONS: ataxia TECHNIQUE: Noncontrast 4.5 mm thick angled axial sections acquired from the foramen magnum to the vertex, with coronal and sagittal reformats. For radiation dose reduction, the following was used: automated exposure control, adjustment of mA and/or kV according to patient size. COMPARISON: None. FINDINGS: Image quality: Excellent. CSF spaces: Basal cisterns are patent. No extra-axial fluid collections. The ventricles are symmetric in size and shape. Brain: No intracranial bleeds or masses. There is cerebral volume loss for age, with resultant ventricular and sulcal prominence. There are periventricular and deep white matter chronic small vessel ischemic changes. There is intracranial internal carotid artery atherosclerosis. Note is made of a cavum septum pellucidum. When discovered in isolation, this is considered to be a developmental variant of no clinical consequence. Skull and face: Calvarium and visualized facial bones appear intact, without suspicious lesions. Sinuses: Visualized sinuses and mastoids are clear. There is mild leftward nasal septal deviation. IMPRESSION: No acute intracranial process is seen. Note is made of age-appropriate brain parenchymal volume loss and chronic small vessel ischemic changes. Dictated by: Pierre Mo M.D. on 02/13/2020 at 11:24 Approved by: Pierre Mo M.D. on 02/13/2020 at 11:27
[2020-02-13 12:00] LABS: Add Manual Diff / Slide Review NO; Basophils Absolute Auto 100 /uL (0-100); Basophils Percent Auto 0.5 % (0-2); Eosinophils Absolute Auto 0 /uL (0-450); Eosinophils Percent Auto 0.3 % (2-4); Hematocrit 44.9 % (41-53); Hemoglobin 15.3 g/dL (13.5-17.5); Lymphocytes Absolute Auto 1100 /uL (1100-4500); Lymphocytes Percent Auto 9.5 % (25-40); Mean Corpuscular HGB Conc 34.2 % (30-36); Mean Corpuscular Hemoglobin 31.3 PG (26-34); Mean Corpuscular Volume 91.5 fL (80-100); Monocytes Absolute Auto 700 /uL (0-900); Monocytes Percent Auto 6.3 % (3-14); Neutrophils Absolute Auto 9500 /uL (1500-7000); Neutrophils Percent Auto 83.4 % (50-75); Platelet Count 298 X10^3/uL (150-400); Red Cell Distribution Width 13.2 % (11.6-14.8); White Blood Cell Count 11.4 X10^3/uL (4.5-11.0)
[2020-02-13 12:07] LABS: Alanine Aminotransferase 23 IU/L (<50); Albumin 4.4 g/dL (3.5-5.0); Albumin Globulin Ratio 1.1 (1.0-2.8); Alkaline Phosphatase 69 U/L (38-126); Aspartate Aminotransferase 35 IU/L (17-59); BUN Creatinine Ratio 18.5 (6-22); Blood Urea Nitrogen 20 mg/dL (9-20); Carbon Dioxide 23 mmol/L (22-32); Chloride 93 mmol/L (98-107); Creatine Kinase 65 U/L (55-170); Estimated Glomerular Filt Rate > 60.0 mL/min (>60); Globulin 3.9 g/dL (1.7-4.1); Glucose 231 mg/dL (80-110); HEMOLYSIS < 15 (0-50); Potassium 4.2 mmol/L (3.4-5.1); Sodium 129 mmol/L (137-145); Total Protein 8.3 g/dL (6.3-8.2)
[2020-02-13 12:18] LABS: Digoxin < 0.4 ng/mL (0.8-2.0)
[2020-02-13 12:19] LABS: NT-proBNP (BNP-Adult 18+) 570 pg/mL (<450); Troponin I < 0.012 ng/mL (0.01-0.034)
--- NOTE | 2020-02-13 12:42 | DI.CT.S_ITS ---
PROCEDURE: CT ANGIO HEAD AND NECK INDICATIONS: ataxia TECHNIQUE: After the administration of intravenous contrast, 1 mm thick sections acquired from the aortic arch through the [place]. Post-contrast 4.5 mm thick sections then re-acquired from the foramen magnum to the vertex. 3-dimensional ewipzmr-vobelxtsn-zvurgecdua (MIP) and/or volume rendering reformats were acquired of the central intracranial vasculature and neck separately. COMPARISON: [facility], CT, CT HEAD/BRAIN WO CON, 02/13/2020, 11:51. FINDINGS: Image quality: Excellent. BRAIN: CSF spaces: Ventricles are normal in size and shape. Basal cisterns are patent. No extra-axial fluid collections. Brain: No midline shift. No intracranial bleeds or masses. Etienne-white matter interface appears intact. Note is made of a cavum septum pellucidum. When discovered in isolation, this is considered to be a developmental variant of no clinical consequence. Skull and face: Calvarium and facial bones appear intact, without suspicious lesions. Orbits appear normal. Sinuses: Sinuses and mastoids are clear. HEAD CT ANGIOGRAPHY: Anterior circulation: Intracranial internal carotid arteries demonstrate atherosclerotic irregularity and calcification, with approximately 30% narrowing seen on each side. The flow within the paired anterior cerebral arteries is normal and symmetric. The flow within the middle cerebral arteries is normal and symmetric. The anterior communicating artery is seen. No aneurysms are seen. Posterior circulation: Visualized portions of the vertebral arteries demonstrate normal caliber, and join to form a normal appearing basilar artery. Flow within the posterior cerebral arteries is normal and symmetric. No aneurysms are seen. NECK CT ANGIOGRAPHY: Carotid system: The great vessels demonstrate a conventional anatomy as they arise from the aortic arch. The origins of the common carotid arteries appear patent. The common carotid arteries demonstrate normal caliber and courses. The bifurcation regions demonstrate atherosclerotic calcification and irregularity. There is approximately 20% narrowing seen involving each proximal internal carotid artery. Posterior circulation: The origins of the vertebral arteries both appear widely patent. The more superior extracranial portions of both vertebral arteries also demonstrate normal courses and calibers. They join to form a normal appearing basilar artery. Soft tissues: Visualized neck soft tissues demonstrate no suspicious abnormalities. A pacer device is seen. Bones: No suspicious bony lesions. Visualized cervical spine appears normally aligned. Age-appropriate bony degenerative changes are seen. IMPRESSION: No significant intracranial arterial abnormality is seen. Within the arteries of the neck, no hemodynamically significant stenosis can be seen. There is atherosclerotic calcification and irregularity seen involving the carotid bifurcation regions, with approximately 20% narrowing seen on each side. Incidental note is made of: Pacer device Any quantitative measurements of stenosis were performed using NASCET criteria. Dictated by: Pierre Mo M.D. on 02/13/2020 at 12:40 Approved by: Pierre Mo M.D. on 02/13/2020 at 12:44
[2020-02-13 14:41] LABS: COVID19 -Nasal RAPID Negative (Negative)
[2020-02-13 15:33] LABS: RBC Urine 5-10/HPF (0-5/HPF); WBC Urine 30-100/HPF (0-5/HPF)
[2020-02-13 15:34] LABS: Bacteria Urine Many (>30); Culture Indicated Urine Specimen Cultured
--- NOTE | 2020-02-13 15:39 | DI.ECHO.S_ITS ---
[facility]---------+ [facility] +---------+ : : [address] : : [place], [place] : : : : [id number] : : : : Phone: [phone] Echocardiogram Report + + :Name: REYNALDO JORDAN Study Date: 02/14/2020 Height: 66 in : :[facility] Weight: 174 lb : : Gender: Male BSA: 1.9 m2 : :: 1935 Age: 84 yrs BP: 128/79 mmHg: :Reason For Study: TIA/CVA : :Ordering Physician: Orquidea : :Hospitalist Performed By: Mary Page : :Referring: JANES ZELAYA : + + Interpretation Summary The patient was in atrial fibrillation with heart rates between 73-106 bpm during the exam. Normal left ventricle size with ejection fraction 50-55%. There is a pacemaker lead in the right ventricle. Severely dilated left atrium. Moderately dilated right atrium. Mild mitral annular calcification. Mild tricuspid regurgitation. Mild aortic regurgitation. Mildly enlarged ascending aorta. Procedure: A two-dimensional transthoracic echocardiogram with color flow and Doppler was performed. The study quality was technically adequate. There is no prior echocardiogram noted for this patient. The subcostal views were difficult to obtain and are suboptimal in quality. The patient was in atrial fibrillation with heart rates between 73-106 bpm during the exam. Left Ventricle: The left ventricle is normal in size and wall thickness. A false chord is noted (normal variant). The ejection fraction is estimated to be 50-55%. Apical wall motion abnormality may reflect pacemaker activation. Diastolic function could not be accurately assessed due to atrial fibrillation. Right Ventricle: The right ventricle is normal in size and function. There is a pacemaker lead in the right ventricle. Atria: The left atrium is severely dilated. The right atrium is moderately dilated. There is no Doppler evidence for an interatrial shunt. Mitral Valve: There is mild mitral annular calcification. There is borderline mitral valve prolapse. There is trace mitral regurgitation. Aortic Valve: The aortic valve is trileaflet. The aortic valve opens well. There is mild aortic regurgitation. Tricuspid Valve: The tricuspid valve is normal. There is mild tricuspid regurgitation. Right ventricular systolic pressure is estimated to be 17 mmHg plus the clinically estimated CVP which cannot be estimated on this exam. Pulmonic Valve: The pulmonic valve is not well seen, but is grossly normal. There is a trace or physiologic amount of pulmonic regurgitation. Great Vessels: The aortic root is normal size. The ascending aorta is mildly enlarged. The pulmonary artery is not well visualized, but is probably normal size. The inferior vena cava was not visualized. Pericardium/ Pleura There is no pericardial effusion. There is no pleural effusion. MMode/2D Measurements & Calculations LVIDd: 4.8 cm LVOT diam: 2.4 cm LVIDs: 3.6 cm Ao root diam: 3.8 cm FS: 23.6 % asc Aorta Diam: 3.8 cm EPSS: 1.5 cm IVSd: 0.77 cm LVPWd: 0.80 cm LV barr. diameter/BSA (cm/m^2): 2.5 LV sys. diameter/BSA (cm/m^2): 1.9 LA A2 area: 44.1 cm2 RA long axis: 5.7 cm LA A4 area: 30.9 cm2 RA area: 22.8 cm2 LA length (vol): 6.6 cm RA vol: 77.4 ml LA vol: 175.4 ml RA : 41.0 ml/m2 LA vol index: 92.9 ml/m2 RVD1 (basal): 4.3 cm Doppler Measurements & Calculations Ao V2 max: 117.0 cm/sec LVOT Max Omar: 54.4 cm/sec Ao V2 mean: 80.6 cm/sec LV V1 max P.2 mmHg Ao max P.5 mmHg LV V1 VTI: 9.7 cm Ao mean P.9 mmHg SUDHIR(I,D): 2.1 cm2 Ao V2 VTI: 21.4 cm SUDHIR(V,D): 2.1 cm2 sev ratio: 0.46 SUDHIR indexed to BSA (cm^2/m^2): 1.1 AI P1/2t: 557.5 msec AI dec slope: 197.7 cm/sec2 Med Peak E' Omar: 6.0 cm/sec TR max omar: 207.5 cm/sec Lat Peak E' Omar: 9.0 cm/sec TR max P.2 mmHg MV P1/2t: 44.8 msec PA V2 max: 66.8 cm/sec PA V2 mean: 45.3 cm/sec PA mean P.92 mmHg PA Accel Time: 0.08 sec MV P1/2t max omar: 82.2 cm/sec SV(LVOT): 44.4 ml MVA(P1/2t): 4.9 cm2 Electronically signed by: Jamarcus Carrizales on Reading Physician:02/15/2020 12:04 PM
--- NOTE | 2020-02-13 15:45 | P.HP_ITS ---
History of Present Illness History of Present Illness Date Patient Seen: 02/13/20 Time Patient Seen: 15:00 Date of Onset of Symptoms: 02/11/20 Chief complaint: dizziness, nausea Narrative: Patient is an 84-year-old male with history of chronic atrial fibrillation on Pradaxa, AICD for ventricular tachycardia, CAD, well compensated CHF, diet-controlled type 2 diabetes, chronic UTI presented initially to the walk-in clinic with complaints difficulty maintaining his balance. He was then directed to the ER. Patient states he was talking to his son 2 days ago and got a ?funny feeling ?and had to sit down. He found he had great difficulty maintaining his balance when he tried to stand up. He felt he was leaning towards 1 side although does not recall whether was the right or left side that he was favoring. He states he had to use his cane to keep from falling reds normally he is not dependent on his cane. He states he spent most of the following day in bed and did not eat much as he had poor appetite. He felt back to normal today except he was directed to seek medical attention when he contacted the [facility] nurse line. Patient has not noticed diplopia or other vision change, numbness or tingling of extremities, difficulty talking. He denies fevers, chills, cough, dyspnea, palpitations, chest pain, nausea or vomiting. He has not noticed any vertigo such as spinning sensation or felt lightheaded. Head CT showed no acute findings or evidence of old CVA. Head CTA showed no significant narrowing, only mild 20% narrowing of carotid arteries. Patient History Medical History (Updated 02/13/20 @ 16:41 by Evaristo Max MD) Atrial fibrillation, chronic (Acute) BPH (benign prostatic hyperplasia) (Acute) Chronic UTI (Acute) Coronary artery disease (Acute) Hyperlipidemia (Acute) Hypertension (Acute) Type 2 diabetes mellitus (Acute) Surgical History (Updated 02/13/20 @ 15:50 by Evaristo Max MD) AICD (automatic cardioverter/defibrillator) present (Acute) Family & Social History Safety & Behavioral: Feels Safe in Current Yes Environment Been Physically Hurt or No Threatened By a Person Tobacco & Substance use: Smoking Status Never smoker alcohol intake former alcohol intake frequency 0-2 drinks per day Substance Use Type marijuana Meds Home Medications and Allergies Home Medications Medication Instructions Recorded Confirmed Type dabigatran etexilate 150 mg capsule 150 mg PO BID #180 cap 08/12/19 02/13/20 Rx hydrochlorothiazide 25 mg tablet 25 mg PO HS #90 tab 08/12/19 02/13/20 Rx losartan 25 mg tablet 25 mg PO BID #180 tab 08/12/19 02/13/20 Rx spironolactone 25 mg tablet 25 mg PO QDAY #90 tab 08/12/19 02/13/20 Rx blood-glucose meter #1 each 09/09/19 02/13/20 Rx metoprolol tartrate 100 mg tablet 150 mg PO BID tab 11/04/19 02/13/20 History cephalexin [Keflex] 500 mg PO QAM 02/13/20 02/13/20 History tamsulosin [Flomax] 0.4 mg PO QAM 02/13/20 02/13/20 History Allergies Allergy/AdvReac Type Severity Reaction Status Date / Time lisinopril [LISINOPRIL] AdvReac Mild DRY COUGH Verified 02/13/20 11:46 Review of Systems Review of Systems ROS: Yes All systems reviewed with the patient and are negative except as otherwise documented Exam Vital Signs (past 8 hours): - 02/13/20 11:25 02/13/20 13:35 02/13/20 14:00 Temperature 98.1 F Pulse Rate 102 H 87 81 Respiratory Rate 18 28 H 26 H Blood Pressure 159/97 H Pulse Oximetry 97 99 98 02/13/20 14:30 02/13/20 15:00 Temperature Pulse Rate 84 88 Respiratory Rate 14 18 Blood Pressure Pulse Oximetry 96 99 Oxygen Delivery Method Room Air Narrative Exam Narrative: General: Alert well-developed well-nourished male looking younger than chronological age and in no acute distress HEENT: Normocephalic atraumatic, pupils equal and reactive bilaterally, EOMI, face symmetric and tongue midline Neck: Supple without lymphadenopathy Lungs: Clear to auscultation Heart: Normal S1 and S2, irregularly irregular rhythm, no murmur Abdomen: Nondistended, soft and nontender, no HSM Extremities: Warm, dry, no edema Neurological: Alert, sensorium intact, speech fluent, normal strength all 4 extremities, finger to nose and heel to sandoval intact bilaterally, sensation intact bilaterally Objective Labs Result Diagrams: 02/13/20 11:41 09/26/20 11:41 Labs: Laboratory Results - last 24 hr 02/13/20 02/13/20 02/13/20 11:41 11:41 11:41 WBC 11.4 H RBC 4.90 Hgb 15.3 Hct 44.9 MCV 91.5 MCH 31.3 MCHC 34.2 RDW 13.2 Plt Count 298 Neut % (Auto) 83.4 H Lymph % (Auto) 9.5 L [place] % (Auto) 6.3 Eos % (Auto) 0.3 L Baso % (Auto) 0.5 Neut # (Auto) 9500 H Lymph # (Auto) 1100 [place] # (Auto) 700 Eos # (Auto) 0 Baso # (Auto) 100 Sodium 129 L Potassium 4.2 Chloride 93 L Carbon Dioxide 23 BUN 20 Creatinine 1.08 Estimated GFR > 60.0 BUN/Creatinine Ratio 18.5 Glucose 231 H Calcium 10.0 Total Bilirubin 2.0 H AST 35 ALT 23 Alkaline Phosphatase 69 Total Creatine Kinase 65 CK-MB (CK-2) TNP CK-MB (CK-2) Rel Index TNP Troponin I < 0.012 NT-Pro-B Natriuret Pep 570 H Total Protein 8.3 H Albumin 4.4 Globulin 3.9 Albumin/Globulin Ratio 1.1 Urine RBC Urine WBC Urine Bacteria Ur Culture Indicated? Digoxin < 0.4 L COVID-19 PCR 02/13/20 02/13/20 13:35 14:45 WBC RBC Hgb Hct MCV MCH MCHC RDW Plt Count Neut % (Auto) Lymph % (Auto) [place] % (Auto) Eos % (Auto) Baso % (Auto) Neut # (Auto) Lymph # (Auto) [place] # (Auto) Eos # (Auto) Baso # (Auto) Sodium Potassium Chloride Carbon Dioxide BUN Creatinine Estimated GFR BUN/Creatinine Ratio Glucose Calcium Total Bilirubin AST ALT Alkaline Phosphatase Total Creatine Kinase CK-MB (CK-2) CK-MB (CK-2) Rel Index Troponin I NT-Pro-B Natriuret Pep Total Protein Albumin Globulin Albumin/Globulin Ratio Urine RBC 5-10/hpf H Urine WBC 30-100/hpf H Urine Bacteria Many (>30) H Ur Culture Indicated? Specimen cultured Digoxin COVID-19 PCR Negative Assessment & Plan Assessment & Plan narrative: Patient is an 84-year-old male with history of chronic atrial fibrillation on Pradaxa, AICD for ventricular tachycardia, CAD, well compensated CHF, diet-controlled type 2 diabetes, chronic UTI presented with acute ataxia. 1. 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 Hypertension, chronic -BP mildly elevated on admission, patient states blood pressures normally run in the 120s over 80s -continue patient on home regimen of HCTZ, losartan, metoprolol 3. Chronic atrial fibrillation -stable with controlled ventricular rate -continue patient's metoprolol and Pradaxa 4. Diet-controlled type 2 diabetes -nonfasting glucose 231, his A1c was 6.1% on 12/21/2019 -CBG a.c. HS 5. Chronic UTI, present on admission, active -patient is presently asymptomatic, he has history of chronic UTI, per direction of his urologist Dr. Armida Patel he will self start oral cephalexin when he gets acutely symptomatic, typically he will notice onset of shaking chills but does not developed dysuria, patient states he is scheduled to have prostate surgery in April -oral cephalexin on med list, last taken a month ago -UA microscopic with 30-100 WBC, many bacteria -WBC 11.4 with 83% neutrophils -follow-up on urine culture results but do not treat unless patient becomes symptomatic 6. Chronic hyponatremia, present on admit -patient is fairly close to baseline sodium values, his corrected sodium for hyperglycemia is 131, and his baseline sodium is 132 -patient is on HCTZ and spironolactone which can cause hyponatremia, however at this time change in medication dosing is not indicated as unlikely patient is symptomatic from this, and he appears well compensated from his heart failure on current regimen of medications DVT prophylaxis: SCDs Code status: Full code Surrogate decision maker: Spouse
[2020-02-13] MEDS: METOPROLOL IR 50 MG TABLET 150 MG PO (20:54)
[2020-02-13] MEDS: hydroCHLOROthiazide 25 MG TABLET PO (20:54)
[2020-02-13] MEDS: LOSARTAN 25 MG TABLET PO (20:55)
[2020-02-13] MEDS: DABIGATRAN 75 MG CAPSULE 150 MG PO (20:55)
--- NOTE | 2020-02-13 22:47 | PC.NURSE ---
Admit/Evening Shift Note- Patient arrived to room via wheelchair from ER. Patient able to walk with cane from wheelchair to bed without assistance. Admit questions done, home medications reviewed, physical assessment completed, and skin check done. Patient oriented to bed and bed controls, room, lights, bathroom, menu, and call ryan/TV remote. NIH stroke scale done with score of 0 recieved. Safety measures in place. Patient agrees to call for assistance. SBA with cane. bed alarm activated. call ryan and phone mark underwood. Will continue to monitor.
[2020-02-14] VITALS: BP 138/78; PULSE 81; RESP 16; TEMP 36.3; O2SAT 97
[2020-02-14 03:00] VITALS: O2SAT 98
[2020-02-14 05:00] VITALS: BP 127/77; PULSE 73; RESP 16; TEMP 36.3; O2SAT 98
[2020-02-14 08:00] VITALS: BP 144/100; PULSE 86; RESP 17; TEMP 36.1; O2SAT 95
[2020-02-14] MEDS: LOSARTAN 25 MG TABLET PO (10:19)
[2020-02-14] MEDS: SPIRONOLACTONE 25 MG TABLET PO (10:20)
[2020-02-14] MEDS: DABIGATRAN 75 MG CAPSULE 150 MG PO (10:20)
[2020-02-14] MEDS: SODIUM CHLORIDE 0.9% FLUSH 10 ML IV (10:20)
[2020-02-14] MEDS: METOPROLOL IR 50 MG TABLET 100 MG PO (10:20)
[2020-02-14] MEDS: TAMSULOSIN 0.4 MG CAPSULE PO (10:20)
[2020-02-14 12:00] VITALS: BP 128/79; PULSE 83; RESP 17; TEMP 36.6; O2SAT 99
--- NOTE | 2020-02-14 12:38 | PT.IIE ---
Surgical History (Last Updated 02/13/20 @ 15:50 by Evaristo Max MD) AICD (automatic cardioverter/defibrillator) present (Acute) Medical History (Last Updated 02/13/20 @ 16:41 by Evaristo Max MD) Atrial fibrillation, chronic (Acute) BPH (benign prostatic hyperplasia) (Acute) Chronic UTI (Acute) Coronary artery disease (Acute) Hyperlipidemia (Acute) Hypertension (Acute) Type 2 diabetes mellitus (Acute) Physical Therapy Inpatient Evaluation/Re-Eval M1 PT/OT-IP Prior Functional Status Start: 02/14/20 09:26 Freq: NEEDED Status: Active Protocol: Document 02/14/20 11:46 AW (Rec: 02/14/20 12:38 AW [id number]) Medical Review Prior Functional Status Medical History Reviewed Yes: PMH significant for a fib , AICD, CHF, chronic UTI, DM2 Communication WNL. No known deficits. Mobility and Gait Pt is independent for all mobility without use of assistive device and without meaningful limit. He is able to walk up to 1 mile at a time . Pt states he has used a SPC occasioanally for balance assist since beginning of balance disturbance on 02/11/20 . Activities of Daily Living and IADL's Independent. Pt drives. He manages his own medications. Prior Functional Level (Other details) Pt denies any falls within the past one year. Social History Household Members spouse Living Arrangements House Number of Floors (Floors) One Floor Number of Stairs To Enter/Railing? level entrance through the garage Home Environment Standard Height Toilet,Walk in Shower Home Equipment Straight Cane,Grab Bars Near Toilet Employment Status Retired Additional Social History Comment Pt lives with his in [place]. M2 PT-IP Current Condition Start: 02/14/20 09: Freq: NEEDED Status: Active Protocol: Document 02/14/20 11:46 AW (Rec: 02/14/20 12:38 AW [id number]) Physical Therapy Current Condition Current Condition Evaluation Date 02/14/20 Treatment Diagnosis possible TIA; balance impairment; difficulty in walking Onset Date 02/11/20 M3 PT-IP Subjective Start: 02/14/20 09:26 Freq: NEEDED Status: Active Protocol: Document 02/14/20 11:46 AW (Rec: 02/14/20 12:38 AW [id number]) Subjective Physical Therapy Visit Type Type Initial Evaluation Visit Start Time 11:20 Visit Stop Time 11:46 Total Visit Minutes 26 Notes Pt's is present throughout evaluation. Physical Therapy Visit Comments Patient Comments I feel about 95% back to normal now. Therapy Pain Assessment Pain When Pain Assessed During Mobility Pain Present Pain Present Denied Pain M4 PT-IP Mobility and Gait Start: 02/14/20 09:26 Freq: NEEDED Status: Active Protocol: Document 02/14/20 11:46 AW (Rec: 02/14/20 12:38 AW [id number]) PT-Bed Mobility Assessment Supine to Sit Supine to Sit Independent Scooting Scooting to Edge of Bed Independent PT-Transfer Assessment Sit to and From Stand Sit to and from Stand Independent Equipment Transfer Assistive Device None,Gait Belt Transfers Transfer Destination Chair Transfer Technique pt ambulated IND Transfer Ability Level of Assist Independent Comments Mobility Comments Pt completed all bed mobility and transfers independently. Gait Assessment Gait Gait Assistance Required: Standby Assistance Distance (Feet) 250 Assistive Devices Assistive Device None,Gait Belt Gait Deviations General Gait Pattern Decreased Stride Length, Decreased Feet Clearance, Flexed Trunk Factors Limiting Gait Function Factors Limiting Gait Function Decreased Sensation,Poor Balance Comments Gait Comments Pt ambulated in the halls without AD requiring occasional SBA due to lateral LOB from which pt was able to recover without physical assist. He completed 4-item DGI with score of 9/12 (one point deducted for path deviation during horizontal head turns). Stair Climbing Assessment Comments Stair Climbing Comments Not assessed. No stairs at home. PT-Balance Assessment Sitting Balance and Reactions Static Sitting Balance Ability Normal Dynamic Sitting Balance Ability Normal Standing Balance and Reactions Static Standing Balance Ability Good Dynamic Standing Balance Ability Fair Device Used none Balance Tests Romberg WNL EO; impaired EC Tandem Standing unable without support M5 PT-IP Objective Assessments Start: 02/14/20 09:26 Freq: NEEDED Status: Active Protocol: Document 02/14/20 11:46 AW (Rec: 02/14/20 12:38 AW [id number]) Orientation Orientation/Cognition Level of Alertness Alert Orientation Name,Day of Week,Place, Situation Language Function Ability No Deficits Noted Safety Awareness Understands Safety Issues Memory Description No Deficits Noted Comments Pt shows good safety awareness with use of SPC when needed. Gross Range of Motion Upper Extremity ROM Assessment Within Functional Limits Lower Extremity ROM Assessment Within Functional Limits Strength Upper Extremity Strength Assessment Within Functional Limits Lower Extremity Strength Assessment Within Functional Limits Comments Strength Comments No unilateral deficit on exam. Coordination Assessment Gross Coordination Gross Coordination WNL Assessment Finger to Nose Test Normal Performance Pronation/Supination Test Normal Performance Sensation Assessment Sensation Gross Sensation WNL Muscle Tone Muscle Tone WNL Yes Comments Muscle Tone Comments Negative clonus at bilateral ankles M6 PT-IP Treatment Start: 02/14/20 09:26 Freq: NEEDED Status: Active Protocol: Document 02/14/20 11:46 AW (Rec: 02/14/20 12:38 AW [id number]) Physical Therapy Treatment Education Education Provided Precautions,Safety Other Treatments Other Treatment Performed Provided education on signs of stroke with pt and verbalizing understanding. M7 PT-IP Assessment and Plan Start: 02/14/20 09:26 Freq: NEEDED Status: Active Protocol: Document 02/14/20 11:46 AW (Rec: 02/14/20 12:38 AW [id number]) PT Summary Assessment and Plan Summary Impairments Balance,Gait Assessment Summary Deyvi is an 84 yo man seen for PT evaluation after being admitted with TIA-like symptoms of impaired balance and ataxia. Head CT and CTA are negative. Pt has AICD and is therefore unable to undergo MRI. Pt is independent in all regards at baseline. On evaluation, he required occasional standby assist during gait without assistive device due to lateral LOB but pt was able to recover without physical assist. He completed all other mobilities independently. No acute or subacute PT needs were identified but pt was educated on signs of stroke and need for immediate treatment. Frequency of Treatment Frequency Of Treatment Discharge Recommendations To Nursing Amount of Assist Needed Independent Discharge Recommendations PT Discharge Recommendations Home Transportation Needs at Discharge Private Vehicle
--- NOTE | 2020-02-14 14:28 | CM.DANOTE ---
DCP Assessment: EMR Reviewed: Patient is a 84 yr old male who was admitted for Possible TIA, patient current PCP is Dr. Fairchild. CM/Rn met with patient at the bedside and explained role. patient was alert and oriented x3 during visit. Patient is Independent at baseline and drives. Currently lives with his Nayla in a single level home. PT discharged patient due to being completely independent and not in need of PT services. Pending ECHO. I: [facility] advantage and self pay Plan: D/C home with when medically stable. NO identified D/C planning needs noted at this time. CM department will follow to assist with any new D/C planning needs that may arise. Nataliya Chopra RN Discharge Planning/Care Management CM Discharge Assessment Start: 02/14/20 14:26 Freq: Status: Active Protocol: Document 02/14/20 14:26 HS (Rec: 02/14/20 14:27 [id number]) Discharge Planning Assessment Assigned Production Weigher Nataliya Chopra RN DPOA/Assigned Designee Name Nayla Maier () Contact Information [phone] Advance Directives? No History Provided By Patient Has Patient been admitted in last 30 No days? Prior Living Arrangements House Household Members spouse Type of transporation used prior to Drives own vehicle admit Independent with ADL's Yes Is patient alert and oriented? Yes Caregiver for Another No DME Already Rented / Owned Cane Comment usually walks with a cane Barriers to Discharge No Discharge Plan Home Referrals Initiated None needed Whiteboard Updated in Patient Room with Yes name and ext. # of Production Weigher Review Status In Process Next Review Type Continued Stay Review
[2020-02-14 15:40] VITALS: BP 130/81; PULSE 84; RESP 18; TEMP 36.4; O2SAT 98
--- NOTE | 2020-02-14 18:00 | P.DS_ITS ---
History of Present Illness History of Present Illness Chief complaint: dizziness, nausea Narrative: Patient is an 84-year-old male with history of chronic atrial fibrillation on Pradaxa, AICD for ventricular tachycardia, CAD, well compensated CHF, diet-controlled type 2 diabetes, chronic UTI presented initially to the walk-in clinic with complaints difficulty maintaining his balance. He was then directed to the ER. Patient states he was talking to his son 2 days ago and got a ?funny feeling ?and had to sit down. He found he had great difficulty maintaining his balance when he tried to stand up. He felt he was leaning towards 1 side although does not recall whether was the right or left side that he was favoring. He states he had to use his cane to keep from falling reds normally he is not dependent on his cane. He states he spent most of the following day in bed and did not eat much as he had poor appetite. He felt back to normal today except he was directed to seek medical attention when he contacted the [facility] nurse line. Patient has not noticed diplopia or other vision change, numbness or tingling of extremities, difficulty talking. He denies fevers, chills, cough, dyspnea, palpitations, chest pain, nausea or vomiting. He has not noticed any vertigo such as spinning sensation or felt lightheaded. Head CT showed no acute findings or evidence of old CVA. Head CTA showed no significant narrowing, only mild 20% narrowing of carotid arteries. Discharge Providers Provider Date of admission: 02/13/20 15:34 Discharge Date: 02/14/20 Primary care physician: Boyd Fairchild DO Consults: 02/13/20 15:59 Consult to Physical Therapy Evaluate & Treat Comment: Physician Instructions: Evaluate and Treat Discharge provider: Evaristo Max MD Summary Hospital Course Discharge Diagnosis: 1. Acute ataxia episode 2. Possible TIA or CVA 3. Chronic atrial fibrillation 4. AICD 5. Type 2 diabetes diet controlled 6. Chronic UTI 7. Chronic hyponatremia Hospital Course: Patient is an 84-year-old male with history of chronic atrial fibrillation on Pradaxa, AICD for ventricular tachycardia, CAD, well compensated CHF, diet-controlled type 2 diabetes, chronic UTI presented with acute ataxia. 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 His neurological exam was normal. Head CT and head/neck CTA were without significant abnormality. There was concern about possible TIA or stroke but we were unable to get MRI due to patient has AICD. He is already on Pradaxa for chronic AFib. It is possible he had a small vessel occlusion. Patient did not have any new neurological events. He was evaluated by PT prior to discharge and noted independent in ambulation. His telemetry was normal except for chronic atrial fibrillation. A transthoracic echo was done prior to discharge and final report pending. I hesitate starting him on aspirin due to bleeding risk since he is already on Pradaxa and the diagnosis of TIA or CVA is uncertain. However, it is certainly reasonable to add low-dose aspirin to his regimen if he has another acute episode or if PCP recommends. He has mild hyponatremia with serum sodium 129 but corrected sodium 131 which is near his baseline values. It is not likely that symptoms were due to hyponatremia. Patient has history of chronic UTI and instructed to self start cephalexin when he develops chills. He is currently asymptomatic. He does have bacteria on his microscopic urinalysis and urine culture is pending at time of discharge. He was not started on antibiotic due to lack of UTI symptoms. Patient states he is supposed to have prostate surgery in April with Dr. Patel. Status at Discharge Cognitive/behavioral status at discharge: oriented Functional status at discharge: independent ambulation Overall status at discharge: patient is back to baseline Exam Vital Signs (past 8 hours): - 02/14/20 12:00 02/14/20 15:40 Temperature 97.9 F 97.5 F L Pulse Rate 83 84 Respiratory Rate 17 18 Blood Pressure 128/79 130/81 Pulse Oximetry 99 98 Oxygen Delivery Method Room Air Oxygen Flow Rate 0 Objective Labs Result Diagrams: 02/13/20 11:41 02/13/20 11:41 Discharge Plan Discharge Plan Patient Disposition: Home Discharge comment: Follow up with PCP this week. Review final ECHO results with PCP. Also a urine culture is pending but you do not need antibiotic unless you get your symptoms of UTI. Return to ED if you have any more sudden episodes of difficulty maintaining your balance or any new concerning symptoms (difficulty with speech, weakness or numbness on one side, sudden loss of vision). Discharge orders & Medications Prescriptions: Continued losartan 25 mg tablet 25 mg PO BID Qty: 180 RF: 3 spironolactone [Aldactone] 25 mg tablet 25 mg PO QDAY Qty: 90 RF: 3 Pradaxa 150 mg capsule 150 mg PO BID Qty: 180 RF: 3 hydrochlorothiazide 25 mg tablet 25 mg PO HS Qty: 90 RF: 3 (DME) blood-glucose meter Misc See Rx Instructions .ROUTE .MEDSUPPLY Qty: 1 RF: 0 metoprolol tartrate 100 mg tablet 150 mg PO BID RF: 0 tamsulosin [Flomax] 0.4 mg capsule 0.4 mg PO QAM RF: 0 cephalexin [Keflex] 250 mg Capsule 500 mg PO QAM RF: 0 finasteride 5 mg Tablet 5 mg PO BEDTIME RF: 0 Follow up/Referrals: Boyd Fairchild, [Primary Care Provider] - 3-5 Days Diet/Activity/Treatments Diet: Diet as Tolerated Discharge Data Primary Care Provider: Boyd Fairchild Quality VTE Deep Vein Thrombosis/Pulmonary Embolism Present on Admission: No
== END 2020-02-14 18:34 | disposition home or self-care (01) ==
LOC: ED 13:26 → AC 02-14 08:41
PROVIDERS: Admitting Provider Internal Medicine; Emergency Provider Emergency Medicine; Family Provider Urology; PCP Family Medicine; Referring Provider Internal Medicine; Visit Provider Internal Medicine
DX: R27.8 Other lack of coordination (principal); R11.0 Nausea; I10 Essential (primary) hypertension; I25.10 Atherosclerotic heart disease of native coronary artery without angina pectoris; Z79.01 Long term (current) use of anticoagulants; I48.20 Chronic atrial fibrillation, unspecified; E11.9 Type 2 diabetes mellitus without complications; N39.0 Urinary tract infection, site not specified; E87.1 Hypo-osmolality and hyponatremia; Z95.810 Presence of automatic (implantable) cardiac defibrillator; Z11.59 Encounter for screening for other viral diseases
CPT/HCPCS: 36415; 70450; 70496; 70498; 80053; 80162; 81003; 81015; 82550; 82962; 83880; 84484; 85025; 87077; 87086; 87186; 87635; 93005; 93306; 97162; 99284; G0378; Q9967

== ENCOUNTER → 2020-04-07 13:27 | Outpatient (CLI) | payer OTHER, SELFPAY ==
[2020-02-13 15:55] VITALS: BMI 28.0
[2020-04-07 15:43] LABS: Appearance Urine UA SL CLOUDY; Bilirubin Urine UA NEGATIVE (NEGATIVE); Color Urine UA YELLOW; Glucose Urine UA NEGATIVE (Negative); Ketones Urine UA NEGATIVE (NEGATIVE); Leukocyte Esterase Urine UA 3+ (NEGATIVE); Nitrite Urine UA NEGATIVE (Negative); Occult Blood Urine UA 3+ (Negative); Protein Urine UA NEGATIVE (Negative); Urobilinogen Urine UA 0.2 E.U./dL (0.2)
[2020-04-07 15:46] LABS: BUN Creatinine Ratio 21.4 (6-22); Blood Urea Nitrogen 21 mg/dL (9-20); Calcium 10.1 mg/dL (8.4-10.2); Carbon Dioxide 29 mmol/L (22-32); Chloride 101 mmol/L (98-107); Estimated Glomerular Filt Rate > 60.0 mL/min (>60); Glucose 127 mg/dL (80-110); HEMOLYSIS < 15 (0-50); Potassium 3.9 mmol/L (3.4-5.1); Sodium 137 mmol/L (137-145)
[2020-04-07 15:50] LABS: Bacteria Urine Many (>30); Culture Indicated Urine Specimen Cultured; RBC Urine 5-10/HPF (0-5/HPF); WBC Urine 10-30/HPF (0-5/HPF)
== END ==
PROVIDERS: Family Provider Urology; PCP Family Medicine; Referring Provider Urology; Visit Provider Urology
DX: N40.0 Benign prostatic hyperplasia without lower urinary tract symptoms (principal); N39.0 Urinary tract infection, site not specified
CPT/HCPCS: 36415; 80048; 81001; 87077; 87086; 87186

== ENCOUNTER → 2020-04-16 12:02 | Outpatient (CLI) | payer OTHER, SELFPAY ==
[2020-02-13 15:55] VITALS: BMI 28.0
[2020-04-16 12:11] LABS: Bacteria Urine None Seen; RBC Urine None Seen (0-5/HPF)
[2020-04-16 13:18] LABS: Appearance Urine UA CLEAR; Bilirubin Urine UA NEGATIVE (NEGATIVE); Color Urine UA YELLOW; Glucose Urine UA NEGATIVE (Negative); Ketones Urine UA TRACE (NEGATIVE); Leukocyte Esterase Urine UA 1+ (NEGATIVE); Nitrite Urine UA NEGATIVE (Negative); Occult Blood Urine UA TRACE-INTACT (Negative); Protein Urine UA NEGATIVE (Negative); Specific Gravity Urine UA 1.025 (1.000-1.035)
[2020-04-16 13:22] LABS: Squamous Epithelial Cell Urine 0-1 /HPF (0-5/HPF); WBC Urine 5-10/HPF (0-5/HPF)
[2020-04-16 13:23] LABS: Culture Indicated Urine Specimen Cultured; Hyaline Casts Urine 1-5/LPF
== END ==
PROVIDERS: Family Provider Urology; PCP Family Medicine; Referring Provider Family Medicine; Visit Provider Family Medicine
DX: N39.0 Urinary tract infection, site not specified (principal)
CPT/HCPCS: 81001; 87077; 87086; 87185; 87186

== ENCOUNTER → 2020-04-19 14:09 | Outpatient (CLI) | payer OTHER, SELFPAY ==
[2020-02-13 15:55] VITALS: BMI 28.0
--- NOTE | 2020-04-19 14:12 | DI.RAD.S_ITS ---
PROCEDURE: XR FOOT LT MIN 3V INDICATIONS: foot ulcer plantar aspect great toe r/o osteo TECHNIQUE: 3 views of the foot were acquired. COMPARISON: None. FINDINGS: Bones: There is destruction remodeling of the 1st interphalangeal joint with lateral angulation, which is suspicious for underlying osteomyelitis/septic arthritis. Small lucencies are seen at the margins of the osseous structures adjacent to the 1st metatarsophalangeal joint, and osteomyelitis is not entirely excluded. There is flexion of the 2nd through 5th distal interphalangeal joints with remodeling of the distal kelsi, which is nonspecific. Accessory os naviculare and os peroneum are noted. A small plantar calcaneal spur is present. Soft tissues: Skin irregularity is seen at the plantar aspect of the forefoot on lateral view corresponding to the known soft tissue ulcer. Mild soft tissue edema is seen in the forefoot. Arterial vascular calcifications are noted. IMPRESSION: Irregularity and remodeling of the 1st interphalangeal joint is suspicious for osteomyelitis in the setting of a known soft tissue ulcer. Small erosions are also seen at the margins of the 1st metatarsophalangeal joint that could represent acute or prior osteomyelitis. MRI may be obtained for more detailed evaluation if indicated. Dictated by: Aleksandr Will M.D. on 04/19/2020 at 13:50 Approved by: Aleksandr Will M.D. on 04/19/2020 at 13:55
== END ==
PROVIDERS: Family Provider Urology; PCP Family Medicine; Referring Provider Physician Assistant; Visit Provider Physician Assistant
DX: E11.621 Type 2 diabetes mellitus with foot ulcer (principal); L97.529 Non-pressure chronic ulcer of other part of left foot with unspecified severity
CPT/HCPCS: 73630

== ENCOUNTER 2020-04-26 18:12 | Observation (INO) | payer OTHER, SELFPAY ==
[2020-02-13 15:55] VITALS: BMI 28.0
--- NOTE | 2020-04-26 18:26 | ED.AMS ---
HPI - Altered Mental Status General Chief Complaint: Neuro Symptoms/Deficit Stated Complaint: TIA Time Seen by Provider: 04/26/20 18:20 Source: patient and family Mode of arrival: Wheelchair Limitations: altered mental status History of Present Illness HPI narrative: 84M nonsmoker with medical history consisting of HTN, TIA, Afib on pradaxa, AICD, and ongoing treatment for what is likely an osteomyelitis of his L great toe. He presents with his and the chief complaint of 2 days of episodic confusion, which manifests as difficulty with word finding, and dizziness. He has had no head or neck injury. He has had no other focal neurologic findings such as numbness, tingling or weakness. He has had no fever chills and denies runny nose, sore throat, cough, chest pain or shortness of breath. He denies any abdominal pain, constipation or diarrhea nor dysuria, frequency or urgency. He was admitted in the end of January under relatively similar circumstances in which he was found to have a moderately low sodium 129, he was worked up for TIA. Related Data Home Medications Medication Instructions Recorded Confirmed metoprolol tartrate 100 mg tablet 100 mg PO BID tab 11/04/19 04/26/20 finasteride 5 mg PO BEDTIME 02/13/20 04/26/20 tamsulosin [Flomax] 0.4 mg PO QAM 02/13/20 04/26/20 cephalexin 500 mg PO Q6HR 04/26/20 04/26/20 Previous Rx's Medication Instructions Recorded dabigatran etexilate 150 mg capsule 150 mg PO BID #180 cap 08/12/19 hydrochlorothiazide 25 mg tablet 25 mg PO HS #90 tab 08/12/19 losartan 25 mg tablet 25 mg PO BID #180 tab 08/12/19 spironolactone 25 mg tablet 25 mg PO QDAY #90 tab 08/12/19 Allergies Allergy/AdvReac Type Severity Reaction Status Date / Time lisinopril [LISINOPRIL] AdvReac Mild DRY COUGH Verified 04/26/20 18:36 Review of Systems Constitutional Constitutional: Denies chills, Denies fatigue, Denies fever(s), Denies frequent falls, Denies lethargy and Denies weakness Eyes Eyes: Denies change in vision, Denies eye discharge, Denies irritation and Denies loss of vision ENT Ears, Nose, Mouth, and Throat: Denies change in voice, Reports dizziness, Denies neck pain, Denies sore throat and Denies throat swelling Cardiovascular Cardiovascular: Denies chest pain, Denies irregular heart rhythm, Denies lightheadedness, Denies palpitations, Denies dyspnea, Denies dyspnea on exertion and Denies orthopnea Respiratory Respiratory: Denies cough, Denies dyspnea, Denies dyspnea on exertion and Denies wheezing Gastrointestinal Gastrointestinal: Denies abdominal pain, Denies change in bowel habits, Denies diarrhea, Denies nausea and Denies vomiting Musculoskeletal Musculoskeletal: Denies neck pain and Denies numbness Integumentary/Breasts Skin/Breast: Denies pruritus, Denies erythema, Denies rash and Denies wounds Neurologic Neurologic: Denies behavioral changes, Reports confusion, Reports dizziness, Denies frequent falls, Denies loss of vision, Denies numbness and Denies weakness Psychiatric Psychiatric: Denies anxiety, Denies behavioral changes, Reports confusion, Denies depression, Denies homicidal ideation and Denies suicidal ideation Endocrine Endocrine: Denies fatigue, Denies flushing and Denies palpitations Hematologic/Lymphatic Hematologic/Lymphatic: Denies easy bruising Allergic/Immunologic Allergic/Immunologic: Denies urticaria, Denies throat swelling and Denies wheezing Patient History Medical History Atrial fibrillation, chronic BPH (benign prostatic hyperplasia) Chronic UTI Coronary artery disease Diabetic foot ulcer Hyperlipidemia Hypertension Type 2 diabetes mellitus Surgical History AICD (automatic cardioverter/defibrillator) present Family History Mother Congestive heart failure Pneumonia Father Pneumonia Social History household members: spouse Smoking Status: Never smoker alcohol intake: former substance use type: marijuana Smoking Status: Never smoker alcohol intake frequency: 0-2 drinks per day Substance Use Type: marijuana Exam Narrative Exam Narrative: GENERAL: [84] year old patient appears stated age. Well-nourished, well-developed patient, in mild distress. GCS 15 HEAD: Atraumatic. Normocephalic. EYES: Pupils equal round and reactive. Extraocular motions intact. No scleral icterus. No injection or drainage. ENT: Moist mucous membranes Nose without bleeding, purulent drainage. Throat without erythema, tonsillar hypertrophy or exudate. Airway patent. NECK: Trachea midline. Non tender CARDIOVASCULAR: Irregular rate and rhythm without murmurs, gallops, or rubs. RESPIRATORY: Clear to auscultation. Breath sounds equal bilaterally. No wheezes, rales, or rhonchi. GASTROINTESTINAL: Abdomen soft, non-tender, nondistended. EXTREMITIES: L great toe with plantar skin break down / ulceration, no drainage or significant exposure of deep tissues. Otherwise no edema or joint tenderness. BACK: Nontender without deformity or crepitance. No flank tenderness. NEURO: AOx3. SKIN: No rash or erythema of visible areas Initial Vital Signs Initial Vital Signs: Vital Signs Temperature 97.3 F L 04/26/20 18:32 Pulse Rate 105 H 04/26/20 18:32 Respiratory Rate 18 04/26/20 18:32 Blood Pressure 149/97 H 04/26/20 18:32 Pulse Oximetry 99 04/26/20 18:32 Scores NIH Stroke Scale Level of Conciousness: Alert, keenly responsive Ask month/age: Answers both questions correctly. Open/close eyes, close hand: Performs both tasks correctly Best gaze horizontal: Normal Visual ravi: No visual loss Facial palsy: Normal symetrical movement Left arm drift: No drift for full 10 sec Right arm drift: No drift for full 10 sec Left leg drift: No drift for full 5 sec Right leg drift: No drift for full 5 sec Limb ataxia: Absent Sensory on face/arms/legs: Normal, no sensory loss Best language: No aphasia, normal Dysarthria: Normal Extinction or inattention: No abnormality Total NIH Stroke scale score: 0 Course Orders Ordered: ED Orders 04/26/20 18:27 CT head/brain wo con Stat 04/26/20 18:46 Complete Blood Count AUTO DIFF Stat Comprehensive Metabolic Panel Stat Ferritin Stat Magnesium Stat NT-proBNP (BNP-Adult 18+) Stat Procalcitonin Stat Troponin & CK Cardiac Panel Stat 04/26/20 19:30 Urine Microscopic Stat 04/26/20 19:40 COVID19 Stat 04/26/20 20:21 XR chest 1V Stat 04/26/20 20:31 XR ankle RT min 3V Stat Acetaminophen (Acetaminophen 325 Mg Tablet) 650 mg PO Q6HR PRN PRN Reason: Fever/Mild Pain (1-3) Dabigatran (Dabigatran 75 Mg Capsule) 150 mg PO BID [facility] Last Admin: 04/26/20 22:51 Dose: 150 mg Documented by: MARCIAL Dextrose (Dextrose 50 % In Water 25 Gm/50 Ml Syringe) 25 gm IV PRN PRN PRN Reason: Hypoglycemia Finasteride (Finasteride 5 Mg Tablet) 5 mg PO BEDTIME [facility] Last Admin: 04/26/20 22:52 Dose: 5 mg Documented by: MARCIAL Lactated Ringer's (Lactated Ringers) 1,000 mls @ 100 mls/hr IV CONT [facility] Stop: 05/27/20 06:44 Last Admin: 04/26/20 22:50 Dose: 100 mls/hr Documented by: MARCIAL Ceftriaxone Sodium/Dextrose (Rocephin) 1 gm in 50 mls @ 100 mls/hr IV Q24H [facility] Last Admin: 04/26/20 22:50 Dose: 100 mls/hr Documented by: MARCIAL Insulin Aspart (Insulin Aspart 100 Unit/Ml Insuln Pen) 0 unit SUBCUT ACHS [facility]; Protocol Last Admin: 04/26/20 23:03 Dose: Not Given Documented by: MARCIAL Losartan Potassium (Losartan 25 Mg Tablet) 25 mg PO BID [facility] Last Admin: 04/26/20 22:51 Dose: 25 mg Documented by: MARCIAL Metoprolol Tartrate (Metoprolol Ir 50 Mg Tablet) 100 mg PO BID [facility] Last Admin: 04/26/20 22:51 Dose: 100 mg Documented by: MARCIAL Ondansetron HCl (Ondansetron 4 Mg/2 Ml Inj) 4 mg IV Q8HR PRN PRN Reason: Nausea And Vomiting Tamsulosin HCl (Tamsulosin 0.4 Mg Capsule) 0.4 mg PO DAILY JACK Discontinued Medications Magnesium Sulfate (Magnesium Sulfate) 2 gm in 50 mls @ 25 mls/hr IV NOW ONE Stop: 04/26/20 22:50 Last Admin: 04/26/20 23:38 Dose: 25 mls/hr Documented by: ALEKSANDR Cosigned by: ALYSSA Consultations Consultation #1: call to hospitalist, happy to accept Vital Signs Vital signs: Vital Signs - 8 hr 04/26/20 19:50 04/26/20 20:00 Pulse Rate 91 H 91 H Blood Pressure 114/69 Pulse Oximetry 99 98 MDM - Altered Mental Status Lab Data Result diagrams: 04/26/20 18:46 04/26/20 18:46 Labs: Lab Results 04/26/20 04/26/20 04/26/20 Range/Units 18:46 18:46 18:46 WBC 7.3 (4.5-11.0) X10^3/uL RBC 4.38 L (4.5-5.9) X10^6/uL Hgb 13.7 (13.5-17.5) g/dL Hct 39.6 L (41-53) % MCV 90.5 (80-100) fL MCH 31.3 (26-34) PG MCHC 34.6 (30-36) % RDW 13.5 (11.6-14.8) % Plt Count 333 (150-400) X10^3/uL Neut % (Auto) 71.0 (50-75) % Lymph % (Auto) 17.5 L (25-40) % [place] % (Auto) 9.2 (3-14) % Eos % (Auto) 1.6 L (2-4) % Baso % (Auto) 0.7 (0-2) % Neut # (Auto) 5200 (5613-1466) /uL Lymph # (Auto) 1300 (3019-8715) /uL [place] # (Auto) 700 (0-900) /uL Eos # (Auto) 100 (0-450) /uL Baso # (Auto) 0 (0-100) /uL Sodium 127 L (137-145) mmol/L Potassium 3.9 (3.4-5.1) mmol/L Chloride 91 L (98-107) mmol/L Carbon Dioxide 28 (22-32) mmol/L BUN 20 (9-20) mg/dL Creatinine 0.91 (0.66-1.25) mg/dL Estimated GFR > 60.0 (>60) mL/min BUN/Creatinine Ratio 22.0 (6-22) Glucose 167 H (80-110) mg/dL Hemoglobin A1c (4.0-6.0) % Calcium 9.6 (8.4-10.2) mg/dL Magnesium 1.5 L (1.6-2.3) mg/dL Ferritin 138 (18-464) ng/mL Total Bilirubin 1.3 (0.2-1.3) mg/dL AST 30 (17-59) IU/L ALT 18 (<50) IU/L Alkaline Phosphatase 67 (38-126) U/L Total Creatine Kinase 34 L (55-170) U/L CK-MB (CK-2) TNP CK-MB (CK-2) Rel Index TNP Troponin I < 0.012 (0.01-0.034) ng/mL NT-Pro-B Natriuret Pep 460 H (<450) pg/mL Total Protein 7.9 (6.3-8.2) g/dL Albumin 4.2 (3.5-5.0) g/dL Globulin 3.7 (1.7-4.1) g/dL Albumin/Globulin Ratio 1.1 (1.0-2.8) Procalcitonin (<0.5) ng/mL Urine RBC (0-5/HPF) Urine WBC (0-5/HPF) Ur Squamous Epith Cells (0-5/HPF) Urine Bacteria (None) Ur Culture Indicated? COVID-19 PCR (Negative) 04/26/20 04/26/20 04/26/20 Range/Units 18:46 18:46 19:30 WBC (4.5-11.0) X10^3/uL RBC (4.5-5.9) X10^6/uL Hgb (13.5-17.5) g/dL Hct (41-53) % MCV (80-100) fL MCH (26-34) PG MCHC (30-36) % RDW (11.6-14.8) % Plt Count (150-400) X10^3/uL Neut % (Auto) (50-75) % Lymph % (Auto) (25-40) % [place] % (Auto) (3-14) % Eos % (Auto) (2-4) % Baso % (Auto) (0-2) % Neut # (Auto) (5632-0889) /uL Lymph # (Auto) (2283-3740) /uL [place] # (Auto) (0-900) /uL Eos # (Auto) (0-450) /uL Baso # (Auto) (0-100) /uL Sodium (137-145) mmol/L Potassium (3.4-5.1) mmol/L Chloride (98-107) mmol/L Carbon Dioxide (22-32) mmol/L BUN (9-20) mg/dL Creatinine (0.66-1.25) mg/dL Estimated GFR (>60) mL/min BUN/Creatinine Ratio (6-22) Glucose (80-110) mg/dL Hemoglobin A1c 6.0 (4.0-6.0) % Calcium (8.4-10.2) mg/dL Magnesium (1.6-2.3) mg/dL Ferritin (18-464) ng/mL Total Bilirubin (0.2-1.3) mg/dL AST (17-59) IU/L ALT (<50) IU/L Alkaline Phosphatase (38-126) U/L Total Creatine Kinase (55-170) U/L CK-MB (CK-2) CK-MB (CK-2) Rel Index Troponin I (0.01-0.034) ng/mL NT-Pro-B Natriuret Pep (<450) pg/mL Total Protein (6.3-8.2) g/dL Albumin (3.5-5.0) g/dL Globulin (1.7-4.1) g/dL Albumin/Globulin Ratio (1.0-2.8) Procalcitonin < 0.05 (<0.5) ng/mL Urine RBC 10-30/hpf H (0-5/HPF) Urine WBC 1-5/hpf (0-5/HPF) Ur Squamous Epith Cells 5-10 /hpf H (0-5/HPF) Urine Bacteria None seen (None) Ur Culture Indicated? Cult not indicated COVID-19 PCR (Negative) 04/26/20 Range/Units 19:40 WBC (4.5-11.0) X10^3/uL RBC (4.5-5.9) X10^6/uL Hgb (13.5-17.5) g/dL Hct (41-53) % MCV (80-100) fL MCH (26-34) PG MCHC (30-36) % RDW (11.6-14.8) % Plt Count (150-400) X10^3/uL Neut % (Auto) (50-75) % Lymph % (Auto) (25-40) % [place] % (Auto) (3-14) % Eos % (Auto) (2-4) % Baso % (Auto) (0-2) % Neut # (Auto) (6668-0250) /uL Lymph # (Auto) (8084-0094) /uL [place] # (Auto) (0-900) /uL Eos # (Auto) (0-450) /uL Baso # (Auto) (0-100) /uL Sodium (137-145) mmol/L Potassium (3.4-5.1) mmol/L Chloride (98-107) mmol/L Carbon Dioxide (22-32) mmol/L BUN (9-20) mg/dL Creatinine (0.66-1.25) mg/dL Estimated GFR (>60) mL/min BUN/Creatinine Ratio (6-22) Glucose (80-110) mg/dL Hemoglobin A1c (4.0-6.0) % Calcium (8.4-10.2) mg/dL Magnesium (1.6-2.3) mg/dL Ferritin (18-464) ng/mL Total Bilirubin (0.2-1.3) mg/dL AST (17-59) IU/L ALT (<50) IU/L Alkaline Phosphatase (38-126) U/L Total Creatine Kinase (55-170) U/L CK-MB (CK-2) CK-MB (CK-2) Rel Index Troponin I (0.01-0.034) ng/mL NT-Pro-B Natriuret Pep (<450) pg/mL Total Protein (6.3-8.2) g/dL Albumin (3.5-5.0) g/dL Globulin (1.7-4.1) g/dL Albumin/Globulin Ratio (1.0-2.8) Procalcitonin (<0.5) ng/mL Urine RBC (0-5/HPF) Urine WBC (0-5/HPF) Ur Squamous Epith Cells (0-5/HPF) Urine Bacteria (None) Ur Culture Indicated? COVID-19 PCR Negative (Negative) Urine Dip Bedside Urine Glucose Negative Bedside Urine Bilirubin - Negative Bedside Urine Ketone - Negative Urine Specific [place] 1.020 Bedside Urine Occult Blood +++ Bedside Urine pH 6 Bedside Urine Protein - Negative Bedside Urine Urobilinogen - Negative Bedside Urine Nitrite - Negative Bedside Urine Leukocytes + 70 Esterase MDM Narrative Medical decision making narrative: Medical history puts him at risk for TIA and this is certainly a concern. Discharge Plan Departure Patient Disposition: Admitted as Observation Clinical Impression: Acute hyponatremia, Brain TIA Admit Date/Time: 04/26/20 20:36 Admit Provider: Adilia Sims
--- NOTE | 2020-04-26 18:27 | DI.CT.S_ITS ---
PROCEDURE: CT HEAD/BRAIN WO CON INDICATIONS: confused, dizzy, word finding troubles, NOT TPA Candidate TECHNIQUE: Noncontrast 4.5 mm thick angled axial sections acquired from the foramen magnum to the vertex, with coronal and sagittal reformats. For radiation dose reduction, the following was used: automated exposure control, adjustment of mA and/or kV according to patient size. COMPARISON: [facility], CT, CT ANGIO HEAD AND NECK, 02/13/2020, 12:47. [facility], CT, CT HEAD/BRAIN WO CON, 02/13/2020, 11:51. FINDINGS: Image quality: Excellent. CSF spaces: Basal cisterns are patent. No extra-axial fluid collections. The ventricles are symmetric in size and shape. Brain: No intracranial bleeds or masses. There is cerebral volume loss for age, with resultant ventricular and sulcal prominence. There are periventricular and deep white matter chronic small vessel ischemic changes. There is intracranial internal carotid artery atherosclerosis. Note is made of a cavum septum pellucidum. When discovered in isolation, this is considered to be a developmental variant of no clinical consequence. Skull and face: Calvarium and visualized facial bones appear intact, without suspicious lesions. Sinuses: Visualized sinuses and mastoids are clear. IMPRESSION: No acute intracranial hemorrhage is seen. No acute intracranial process is seen. Note is made of age-appropriate brain parenchymal volume loss and chronic small vessel ischemic changes. Dictated by: Pierre Mo M.D. on 04/26/2020 at 17:44 Approved by: Pierre Mo M.D. on 04/26/2020 at 17:45
[2020-04-26 18:32] VITALS: BP 149/97; PULSE 105; RESP 18; TEMP 36.3; O2SAT 99
[2020-04-26 18:54] LABS: Add Manual Diff / Slide Review NO; Basophils Absolute Auto 0 /uL (0-100); Basophils Percent Auto 0.7 % (0-2); Eosinophils Absolute Auto 100 /uL (0-450); Eosinophils Percent Auto 1.6 % (2-4); Hematocrit 39.6 % (41-53); Hemoglobin 13.7 g/dL (13.5-17.5); Lymphocytes Absolute Auto 1300 /uL (1100-4500); Lymphocytes Percent Auto 17.5 % (25-40); Mean Corpuscular HGB Conc 34.6 % (30-36); Mean Corpuscular Hemoglobin 31.3 PG (26-34); Mean Corpuscular Volume 90.5 fL (80-100); Monocytes Absolute Auto 700 /uL (0-900); Monocytes Percent Auto 9.2 % (3-14); Neutrophils Absolute Auto 5200 /uL (1500-7000); Platelet Count 333 X10^3/uL (150-400); Red Blood Cell Count 4.38 X10^6/uL (4.5-5.9); Red Cell Distribution Width 13.5 % (11.6-14.8); White Blood Cell Count 7.3 X10^3/uL (4.5-11.0)
[2020-04-26 19:12] LABS: Alanine Aminotransferase 18 IU/L (<50); Albumin 4.2 g/dL (3.5-5.0); Albumin Globulin Ratio 1.1 (1.0-2.8); Alkaline Phosphatase 67 U/L (38-126); Aspartate Aminotransferase 30 IU/L (17-59); Bilirubin Total 1.3 mg/dL (0.2-1.3); Blood Urea Nitrogen 20 mg/dL (9-20); Calcium 9.6 mg/dL (8.4-10.2); Carbon Dioxide 28 mmol/L (22-32); Chloride 91 mmol/L (98-107); Creatine Kinase 34 U/L (55-170); Estimated Glomerular Filt Rate > 60.0 mL/min (>60); Globulin 3.7 g/dL (1.7-4.1); Glucose 167 mg/dL (80-110); HEMOLYSIS 23 (0-50); Magnesium 1.5 mg/dL (1.6-2.3); Potassium 3.9 mmol/L (3.4-5.1); Sodium 127 mmol/L (137-145); Total Protein 7.9 g/dL (6.3-8.2)
[2020-04-26 19:21] LABS: NT-proBNP (BNP-Adult 18+) 460 pg/mL (<450)
[2020-04-26 19:24] LABS: Troponin I < 0.012 ng/mL (0.01-0.034)
[2020-04-26 19:26] LABS: Procalcitonin < 0.05 ng/mL (<0.5)
[2020-04-26 19:41] LABS: Bacteria Urine None Seen
[2020-04-26 19:47] LABS: Ferritin 138 ng/mL (18-464)
[2020-04-26 19:49] LABS: Culture Indicated Urine Cult Not Indicated; RBC Urine 10-30/HPF (0-5/HPF); Squamous Epithelial Cell Urine 5-10 /HPF (0-5/HPF); WBC Urine 1-5/HPF (0-5/HPF)
[2020-04-26 19:50] VITALS: PULSE 91; O2SAT 99
[2020-04-26 20:00] VITALS: BP 114/69; PULSE 91; O2SAT 98
[2020-04-26 20:16] LABS: COVID19 -Nasal RAPID Negative (Negative)
--- NOTE | 2020-04-26 20:21 | DI.RAD.S_ITS ---
PROCEDURE: XR CHEST 1V INDICATIONS: SOB TECHNIQUE: One view of the chest was acquired. COMPARISON: None. FINDINGS: A single view of the chest was performed. There is a left chest wall pacer with intact leads. No focal consolidation or mass. No pneumothorax or pleural effusion. The thoracic spine has rightward curvature. The aorta has atherosclerotic calcifications and is tortuous. IMPRESSION: No acute cardiopulmonary abnormality. Dictated by: Cosme Dasilva M.D. on 04/26/2020 at 21:30 Approved by: Cosme Dasilva M.D. on 04/26/2020 at 21:31
--- NOTE | 2020-04-26 20:31 | DI.RAD.S_ITS ---
PROCEDURE: XR ANKLE RT MIN 3V INDICATIONS: fall with swelling TECHNIQUE: 4 views of the ankle were acquired. COMPARISON: None. FINDINGS: Bones: There is a partially visualized fracture of the base of the 5th metatarsal. The ankle has mild degenerative changes. Soft tissues: Vasculature has atherosclerotic calcifications. No radiopaque foreign bodies. IMPRESSION: Partially visualized fracture of the base of the 5th metatarsal. Recommend x-rays of the foot. Dictated by: Cosme Dasilva M.D. on 04/26/2020 at 21:03 Approved by: Cosme Dasilva M.D. on 04/26/2020 at 21:06
--- NOTE | 2020-04-26 21:06 | P.HP_ITS ---
History of Present Illness History of Present Illness Date Patient Seen: 04/26/20 Time Patient Seen: 20:30 Chief complaint: Global vs metabolic encephalopathy Narrative: Braulio Moore is an 84-year-old male with history of chronic atrial fibrillation anticoagulated on Pradaxa, AICD for ventricular tachycardia, CAD, well compensated CHF, diet-controlled type 2 diabetes, chronic UTI presented to the ED with a several day old complaints difficulty nausea, vomiting, word finding difficulties and maintaining his balance. He denies fever though he does state he is breathing faster than normal and has been taking deeper and longer breaths to compensate, denies history of smoking or exposure to people with COVID-19. in the room states that he would sometimes go to the grocery store but has not been outside of their house for 1 week. Presence of his AICD precludes a MRI. He states since being bed in the emergency department he feels 100% better. He does state that he is on his last day of taking antibiotics for a chronic left toe ulcer. He was due to go to the wound clinic on . He also states that he fell inside of his home was a result of his foot not being in his shoe entirely and rolled his right ankle and that is been swollen ever since. He denies any chest pain, he does endorse having nausea with some vomiting, he denies dysuria or constipation. He did state that right after starting his course of oral Keflex he had a bout of diarrhea but has not had that since. He is currently on his last dose of Keflex. He does state that he has diet-controlled diabetes and his in the room stated his last blood sugars have been running in the low 110s. His last A1c was 6.1 in February of this year. He states he is unable to feel the bottom of his feet and has sustained fractures in the past because of this. On April 19, the patient had an x-ray of his left foot and the findings were suspicious of a osteomyelitis of the left great toe. Recommended an MRI however given the patient's presence of a AICD, this may be contraindicated. In the ED x-ray of the right ankle indicates a Partially visualized fracture of the base of the 5th metatarsal. Recommend x-rays of the foot.Temperature was 97.3?, blood pressure 114/69, heart rate 91, respiratory rate 18, oxygen saturation 98% on room air, he weighs 79.3 kg with a BMI of 20.2. CBC largely within normal limits, sodium was 127, potassium 3.9, chloride 91, bicarb 28, BUN 20, creatinine 0.91, with a GFR greater than 60, glucose 167, A1c is 6.0, calcium 9.6, magnesium 1.5, CK is 34, proBNP was 460, and COVID-19 PCR was negative. Patient History Medical History Atrial fibrillation, chronic BPH (benign prostatic hyperplasia) Chronic UTI Coronary artery disease Diabetic foot ulcer Hyperlipidemia Hypertension Type 2 diabetes mellitus Surgical History AICD (automatic cardioverter/defibrillator) present Family & Social History Family History Mother Congestive heart failure Pneumonia Father Pneumonia Social History: household members spouse Safety & Behavioral: Feels Safe in Current Yes Environment Been Physically Hurt or No Threatened By a Person Tobacco & Substance use: Smoking Status Never smoker alcohol intake former alcohol intake frequency other Substance Use Type marijuana Meds Home Medications and Allergies Home Medications Medication Instructions Recorded Confirmed Type dabigatran etexilate 150 mg capsule 150 mg PO BID #180 cap 08/12/19 04/26/20 Rx hydrochlorothiazide 25 mg tablet 25 mg PO HS #90 tab 08/12/19 04/26/20 Rx losartan 25 mg tablet 25 mg PO BID #180 tab 08/12/19 04/26/20 Rx spironolactone 25 mg tablet 25 mg PO QDAY #90 tab 08/12/19 04/26/20 Rx metoprolol tartrate 100 mg tablet 100 mg PO BID tab 11/04/19 04/26/20 History finasteride 5 mg PO BEDTIME 02/13/20 04/26/20 History tamsulosin [Flomax] 0.4 mg PO QAM 02/13/20 04/26/20 History cephalexin 500 mg PO Q6HR 04/26/20 04/26/20 History Allergies Allergy/AdvReac Type Severity Reaction Status Date / Time lisinopril [LISINOPRIL] AdvReac Mild DRY COUGH Verified 04/26/20 18:36 Review of Systems Review of Systems ROS: Yes All systems reviewed with the patient and are negative except as otherwise documented Exam Vital Signs (past 8 hours): - 04/26/20 18:32 04/26/20 19:50 04/26/20 20:00 Temperature 97.3 F L Pulse Rate 105 H 91 H 91 H Respiratory Rate 18 Blood Pressure 149/97 H 114/69 Pulse Oximetry 99 99 98 Oxygen Delivery Method Room Air Narrative Exam Narrative: Gen: Alert, oriented, well-developed 84 y.o. male, appears younger than stated age, but ill appearing HEENT: normocephalic, atraumatic, conjunctiva clear, sclera non-icteric, oral mucosa pink and moist Neck: supple, full ROM, no JVD, trachea is midline Resp: Lungs CTA, non-labored breathing CV: RRR, no murmur or rubs Abd: soft, non-tender, normoactive BTs Skin: no lesions or rashes, dry and intact Neuro: Alert and oriented X 4 w/no focal deficits. Speech clear and coherent. Extremities: Lateral swelling of the left ankle, 1 cm draining ulcer of the right great toe. moves all 4 extremities, is ambulatory, negative Ameya?s sign Psyche: normal mood and affect. Objective Labs Result Diagrams: 04/26/20 18:46 04/26/20 18:46 Labs: Laboratory Results - last 24 hr 04/26/20 04/26/20 04/26/20 18:46 18:46 18:46 WBC 7.3 RBC 4.38 L Hgb 13.7 Hct 39.6 L MCV 90.5 MCH 31.3 MCHC 34.6 RDW 13.5 Plt Count 333 Neut % (Auto) 71.0 Lymph % (Auto) 17.5 L [place] % (Auto) 9.2 Eos % (Auto) 1.6 L Baso % (Auto) 0.7 Neut # (Auto) 5200 Lymph # (Auto) 1300 [place] # (Auto) 700 Eos # (Auto) 100 Baso # (Auto) 0 Sodium 127 L Potassium 3.9 Chloride 91 L Carbon Dioxide 28 BUN 20 Creatinine 0.91 Estimated GFR > 60.0 BUN/Creatinine Ratio 22.0 Glucose 167 H Calcium 9.6 Magnesium 1.5 L Ferritin 138 Total Bilirubin 1.3 AST 30 ALT 18 Alkaline Phosphatase 67 Total Creatine Kinase 34 L CK-MB (CK-2) TNP CK-MB (CK-2) Rel Index TNP Troponin I < 0.012 NT-Pro-B Natriuret Pep 460 H Total Protein 7.9 Albumin 4.2 Globulin 3.7 Albumin/Globulin Ratio 1.1 Procalcitonin Urine RBC Urine WBC Ur Squamous Epith Cells Urine Bacteria Ur Culture Indicated? COVID-19 PCR 04/26/20 04/26/20 04/26/20 18:46 19:30 19:40 WBC RBC Hgb Hct MCV MCH MCHC RDW Plt Count Neut % (Auto) Lymph % (Auto) [place] % (Auto) Eos % (Auto) Baso % (Auto) Neut # (Auto) Lymph # (Auto) [place] # (Auto) Eos # (Auto) Baso # (Auto) Sodium Potassium Chloride Carbon Dioxide BUN Creatinine Estimated GFR BUN/Creatinine Ratio Glucose Calcium Magnesium Ferritin Total Bilirubin AST ALT Alkaline Phosphatase Total Creatine Kinase CK-MB (CK-2) CK-MB (CK-2) Rel Index Troponin I NT-Pro-B Natriuret Pep Total Protein Albumin Globulin Albumin/Globulin Ratio Procalcitonin < 0.05 Urine RBC 10-30/hpf H Urine WBC 1-5/hpf Ur Squamous Epith Cells 5-10 /hpf H Urine Bacteria None seen Ur Culture Indicated? Cult not indicated COVID-19 PCR Negative Assessment & Plan Assessment & Plan narrative: Braulio Moore will be observed overnight for management and treatment of metabolic encephalopathy, for a non-healing ulcer of the right foot suspicious for osteomylitis and a possible fracture of the 5th metatarsal of the left foot. Metabolic encephalopathy, acute and present on admission -Patient's mentation and mood was thoroughly normalized when I saw him -Patients admitting sodium was 127, normal baseline in the low 130s. He is ordered for 2 liters of LR. 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 Small erosions are also seen at the margins of the 1st metatarsophalangeal joint that could represent acute or prior osteomyelitis. -He was scheduled to see wound care and just finished a 7-day course of oral Keflex, likely not long enough to treat for an osteomylitis. -Podiatry consult ordered to assess Left ankle injury found to have a fracture of the fifth metatarsal, present on admission -Foot xray indicated Comminuted fracture of the base of the 5th metatarsal consistent with a Santiago fracture. -podiatry consult as above. Diabetes type 2, controlled to a pre-diabetic state with an A1c of 6.0 -He is on a low does correctional insulin -Elevated blood glucoses likely due to continued diabetic foot ulcer infection Atrial fibrillation anticoagulated on dabigatran, chronic -tele -Continue home dose of dabigatran 150 mg po bid History of CHF, chronic, not likely present on admission -is current proBNP was 460 with a baseline in the high 500s -last echo that was done in January of this year indicated likely diastolic dysfunction though difficult to fully assess due to atrial fibrillation -will be judicious in fluid management -Chads Vasc 2 score is 8 VTE prophylaxis: Wells risk score: 1.5 he will be continued on his home dose of Pradaxa Consults: Dr. Lock, consult and involvement is appreciated. Patient is observation status as his stay is not likely to exceed 2 midnights. FEN: LR at 100 ml/hour, carb controlled diet, BMP and magnesium in the am. Dispo: probable discharge to home Code Status: Full Code as discussed with patient and his Scores CHADS-VASc Congestive heart failure: yes Hypertension: yes Age 75 years or older: yes Diabetes mellitus: yes Stroke, TIA, or TE: yes Vascular disease: yes Age 65 to 74 years: no Sex category (female): Male CHADS-VASc Score: 8 Wells' Criteria for PE Clinical signs and symptoms of DVT: No PE is #1 Dx or equally likely: No Heart rate > 100: No Immobilization at least 3 days or surg in previous 4 weeks: Yes History of PE or DVT: No Hemoptysis: No Malignancy w/Treatment within 6 months or palliative: No Wells' PE Score total: 1.5 Quality VTE Deep Vein Thrombosis/Pulmonary Embolism Present on Admission: No
--- NOTE | 2020-04-26 21:19 | DI.RAD.S_ITS ---
PROCEDURE: XR FOOT RT MIN 3V INDICATIONS: Partially visualized fracture of the 5th metatarsal TECHNIQUE: 3 views of the foot were acquired. COMPARISON: [facility], CR, XR FOOT LT MIN 3V, 04/19/2020, 15:14. FINDINGS: Bones: Three views of the right foot were performed. There is a comminuted fracture of the base of the 5th metatarsal fracture lines consistent with both avulsion and Santiago fractures are seen. The great toe interphalangeal joint has severe erosions and partial subluxation which appears chronic. There are degenerative changes of the great toe metatarsophalangeal joint. Soft tissues: No tibiotalar joint effusion. Achilles tendon appears normal. IMPRESSION: Comminuted fracture of the base of the 5th metatarsal consistent with a Santiago fracture. Dictated by: Cosme Dasilva M.D. on 04/26/2020 at 21:47 Approved by: Cosme Dasilva M.D. on 04/26/2020 at 21:49
[2020-04-26 21:25] VITALS: BMI 28.2
--- NOTE | 2020-04-26 22:26 | PC.NURSE ---
NIH score Score assessed to be 0. 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 pt also is DM type 2.
[2020-04-26] MEDS: CEFTRIAXONE 1 GM/50 ML FROZ.PIGGY IV (22:50)
[2020-04-26] MEDS: LACTATED RINGERS 1,000 ML 100 ML IV (22:50)
[2020-04-26 22:51] VITALS: BP 114/69; PULSE 91
[2020-04-26] MEDS: METOPROLOL IR 50 MG TABLET 100 MG PO (22:51)
[2020-04-26] MEDS: LOSARTAN 25 MG TABLET PO (22:51)
[2020-04-26] MEDS: DABIGATRAN 75 MG CAPSULE 150 MG PO (22:51)
[2020-04-26] MEDS: FINASTERIDE 5 MG TABLET PO (22:52)
[2020-04-26] MEDS: MAGNESIUM SULFATE 2 GM/50 ML PIGGYBACK IV (23:38)
--- NOTE | 2020-04-26 23:50 | PC.NURSE ---
ADMISSION Report received from ED. Care assumed 2124. VSS. A&Ox3. Denies pain. Pt. demonstrates unsteadiness on feet. Bedrest ordered d/t wound and fracture of feet. Wound MARINE PIPEFITTER upon arrival, witnessed by two nurses, dressed by MILIND Cedillo.
[2020-04-27 01:00] VITALS: BP 127/58; PULSE 73; RESP 16; TEMP 36; O2SAT 97
[2020-04-27 06:01] LABS: Add Manual Diff / Slide Review NO; Basophils Absolute Auto 100 /uL (0-100); Basophils Percent Auto 0.8 % (0-2); Eosinophils Absolute Auto 200 /uL (0-450); Eosinophils Percent Auto 2.7 % (2-4); Hematocrit 38.6 % (41-53); Hemoglobin 13.1 g/dL (13.5-17.5); Lymphocytes Absolute Auto 1200 /uL (1100-4500); Lymphocytes Percent Auto 17.7 % (25-40); Mean Corpuscular HGB Conc 33.9 % (30-36); Mean Corpuscular Hemoglobin 30.7 PG (26-34); Mean Corpuscular Volume 90.7 fL (80-100); Monocytes Absolute Auto 800 /uL (0-900); Monocytes Percent Auto 11.3 % (3-14); Neutrophils Absolute Auto 4600 /uL (1500-7000); Neutrophils Percent Auto 67.5 % (50-75); Platelet Count 313 X10^3/uL (150-400); Red Blood Cell Count 4.26 X10^6/uL (4.5-5.9); Red Cell Distribution Width 13.5 % (11.6-14.8); White Blood Cell Count 6.8 X10^3/uL (4.5-11.0)
[2020-04-27 06:14] LABS: BUN Creatinine Ratio 19.8 (6-22); Blood Urea Nitrogen 16 mg/dL (9-20); Calcium 9.6 mg/dL (8.4-10.2); Carbon Dioxide 33 mmol/L (22-32); Chloride 94 mmol/L (98-107); Estimated Glomerular Filt Rate > 60.0 mL/min (>60); Glucose 122 mg/dL (80-110); HEMOLYSIS < 15 (0-50); Magnesium 2.2 mg/dL (1.6-2.3); Sodium 130 mmol/L (137-145)
[2020-04-27 10:00] VITALS: BP 136/73; PULSE 83; RESP 15; TEMP 36.3; O2SAT 100
[2020-04-27] MEDS: METOPROLOL IR 50 MG TABLET 100 MG PO (10:00)
[2020-04-27] MEDS: LOSARTAN 25 MG TABLET PO (10:00)
[2020-04-27] MEDS: TAMSULOSIN 0.4 MG CAPSULE PO (10:00)
--- NOTE | 2020-04-27 11:51 | CM.DANOTE ---
Addendum entered by RUTH Price 04/27/20 14:41: ADD: Per PT, boot has been ordered but delivery time unknown but anticipating this afternoon and boot needed prior to PT eval. PT continuing to remain in contact with delivery company for coordination of boot delivery. BF Addendum entered by RUTH Price 04/27/20 14:31: ADD: Per Ortho MD, recommending a boot and weight baring as tolerated and placed PT eval order. Recommending outpt Podiatry consult. Per Hospitalist, pt's cultures returned showing that pt can d/c on oral abx and no IV-Abx needed at d/c and after discussion with Ortho MD then pt can likely d/c home tonight pending PT eval and recommendations. SW contacted PT and alerted them that pt may be able to d/c pending PT eval and pt has been assigned to a PT to eval later this afternoon. Plan: SW to follow after PT eval towards confirming if pt safe for d/c home with boot and spouse assist and outpt Podiatry consult. RUTH Price Original Note: Patient is an 84 year old male who was admitted OBS on 04/26/20 for Wound Care. Pt has [facility] for insurance and his PCP is Dr. Boyd Fairchild and is followed by Dr. Armida Patel. EMR was reviewed. Per MD, pt with hx of AFIB, CHF, diabetes and chronic left toe ulcer and admitted for metabolic encephalopathy and likely osteomyelitis. Ortho Consult ordered and pending due to pt's ulcer to the bone and right ankle possible fx. Podiatry may also be consulted. PT to be ordered after Ortho Consult to determine d/c needs. SW met bedside with pt and explained role and pt confirms he still lives in [place] with his spouse and is mostly independent with ADL's and continues to drive. Pt was recently admitted in Jan 2020 this year for possible CVA vs TIA and was able to d/c home with spouse and no new referrals. Pt denies any hx of SNF or HH and remains Full Code. Pt's DPOA is his spouse Nayla who goes by Shilpa. Discharge needs unclear at this time but per Hospitalist pt has high likelihood that he will need 6 weeks IV-Abx at discharge. Plan: SW to follow closely after Ortho Consult, PT orders and eval, and likely need of IV-Abx exterminator helper termite at d/c to determine SNF vs Home Infusion with HH based on which Abx and dosing and frequency. RUTH Price Discharge Planning/Care Management CM Discharge Assessment Start: 04/27/20 11:48 Freq: Status: Active Protocol: Document 04/27/20 11:49 BF (Rec: 04/27/20 11:51 BF [id number]) Discharge Planning Assessment Assigned Health And Social Care Teacher RUTH Mims DPOA/Assigned Designee Name spouse Nayla Jean) Advance Directives? No Advance Directives on File No History Provided By Patient,Medical Record Has Patient been admitted in last 30 No days? Prior Living Arrangements House Household Members spouse Type of transporation used prior to Drives own vehicle admit Independent with ADL's Yes Is patient alert and oriented? Yes Needs Assistance With Home Chores / Shopping Caregiver for Another No DME Already Rented / Owned Cane Comment usually walks with a cane Patient/Family Preference Home with Home Health Barriers to Discharge No Discharge Plan Home with Home Health Community [facility] Wound Care Transportation Arrangement Spouse available to provide transport at d/c if safe for home Additional Comment Pending Ortho Consult and recommendations for ulcer to the bone Whiteboard Updated in Patient Room with Yes name and ext. # of Health And Social Care Teacher Review Status In Process Please Provide Date Initial DC 04/27/20 Assessment Was Performed Next Review Type Continued Stay Review
[2020-04-27 12:16] VITALS: BP 111/73; PULSE 72
[2020-04-27] MEDS: INSULIN ASPART 100 UNIT/ML INSULN PEN SUBCUT (12:28)
--- NOTE | 2020-04-27 12:46 | PM.CN ---
History of Present Illness Consult details Date Patient Seen: 04/27/20 Time Patient Seen: 12:46 Chief complaint: Global vs metabolic encephalopathy Reason for consult: Bilateral foot and ankle problems. Requesting provider: Deyvi Tejada Narrative: He is an 84-year-old gentleman who was evaluated in the emergency room for falling and problems with his equilibrium. In the emergency room he was noted to have a right 5th metatarsal base fracture. He also saw his primary care practitioner about 8 days ago and had x-rays of his left foot. A small ulcer was noted at the base of his great toe. He was placed on dressing changes and oral antibiotics. He denies a history of fever or chills. He notes that he has been a borderline diabetic for about 20 years but it has always been controlled with diet. He normally checks his sugars and they are under 100. He does note some mild numbness in bilateral lower extremities. Podiatry consultation was obtained for evaluation of his left foot as an outpatient. Meds Home Medications and Allergies Home Medications Medication Instructions Recorded Confirmed Type dabigatran etexilate 150 mg capsule 150 mg PO BID #180 cap 08/12/19 04/26/20 Rx hydrochlorothiazide 25 mg tablet 25 mg PO HS #90 tab 08/12/19 04/26/20 Rx losartan 25 mg tablet 25 mg PO BID #180 tab 08/12/19 04/26/20 Rx spironolactone 25 mg tablet 25 mg PO QDAY #90 tab 08/12/19 04/26/20 Rx metoprolol tartrate 100 mg tablet 100 mg PO BID tab 11/04/19 04/26/20 History finasteride 5 mg PO BEDTIME 02/13/20 04/26/20 History tamsulosin [Flomax] 0.4 mg PO QAM 02/13/20 04/26/20 History cephalexin 500 mg PO Q6HR 04/26/20 04/26/20 History Allergies Allergy/AdvReac Type Severity Reaction Status Date / Time lisinopril [LISINOPRIL] AdvReac Mild DRY COUGH Verified 04/26/20 18:36 Review of Systems Review of Systems Narrative: Denies fevers or chills and notes he has been doing reasonably well except for complaints of equilibrium and some dizziness. Has a history of a defibrillator. Exam Vital Signs (past 8 hours): - 04/27/20 10:00 04/27/20 12:16 Temperature 97.3 F L Pulse Rate 83 72 Respiratory Rate 15 Blood Pressure 136/73 111/73 Pulse Oximetry 100 Oxygen Delivery Method Room Air Oxygen Flow Rate 0 Narrative Exam Narrative: Is alert he is oriented is resting comfortably in is quite conversant. Was no pain with range of motion in his knees bilaterally. There is no evidence of erythema or cellulitis in bilateral lower extremities. Examination of the right foot and ankle shows a contusion on the lateral aspect of the right foot with some tenderness to palpation at the base of the 5th metatarsal. Can fire his toe flexors and extensors he does have obvious deformity of his IP joint of the hallux. Skin is noted to be intact there is no erythema, no significant pain with range of motion of the right ankle. Left lower extremity shows obvious deformity of the left foot IP joint there is a small ulcer over the distal aspect of the toe on the plantar surface there is no erythema the base appears benign with granulation tissue. No significant cellulitis. Minimal foot swelling good range of motion foot and ankle. Objective Labs Result Diagrams: 04/27/20 05:35 04/27/20 05:35 Labs: Laboratory Results - last 24 hr 04/26/20 04/26/20 04/26/20 18:46 18:46 18:46 WBC 7.3 RBC 4.38 L Hgb 13.7 Hct 39.6 L MCV 90.5 MCH 31.3 MCHC 34.6 RDW 13.5 Plt Count 333 Neut % (Auto) 71.0 Lymph % (Auto) 17.5 L [place] % (Auto) 9.2 Eos % (Auto) 1.6 L Baso % (Auto) 0.7 Neut # (Auto) 5200 Lymph # (Auto) 1300 [place] # (Auto) 700 Eos # (Auto) 100 Baso # (Auto) 0 Sodium 127 L Potassium 3.9 Chloride 91 L Carbon Dioxide 28 BUN 20 Creatinine 0.91 Estimated GFR > 60.0 BUN/Creatinine Ratio 22.0 Glucose 167 H Hemoglobin A1c Calcium 9.6 Magnesium 1.5 L Ferritin 138 Total Bilirubin 1.3 AST 30 ALT 18 Alkaline Phosphatase 67 Total Creatine Kinase 34 L CK-MB (CK-2) TNP CK-MB (CK-2) Rel Index TNP Troponin I < 0.012 NT-Pro-B Natriuret Pep 460 H Total Protein 7.9 Albumin 4.2 Globulin 3.7 Albumin/Globulin Ratio 1.1 Procalcitonin Urine RBC Urine WBC Ur Squamous Epith Cells Urine Bacteria Ur Culture Indicated? COVID-19 PCR 04/26/20 04/26/20 04/26/20 18:46 18:46 19:30 WBC RBC Hgb Hct MCV MCH MCHC RDW Plt Count Neut % (Auto) Lymph % (Auto) [place] % (Auto) Eos % (Auto) Baso % (Auto) Neut # (Auto) Lymph # (Auto) [place] # (Auto) Eos # (Auto) Baso # (Auto) Sodium Potassium Chloride Carbon Dioxide BUN Creatinine Estimated GFR BUN/Creatinine Ratio Glucose Hemoglobin A1c 6.0 Calcium Magnesium Ferritin Total Bilirubin AST ALT Alkaline Phosphatase Total Creatine Kinase CK-MB (CK-2) CK-MB (CK-2) Rel Index Troponin I NT-Pro-B Natriuret Pep Total Protein Albumin Globulin Albumin/Globulin Ratio Procalcitonin < 0.05 Urine RBC 10-30/hpf H Urine WBC 1-5/hpf Ur Squamous Epith Cells 5-10 /hpf H Urine Bacteria None seen Ur Culture Indicated? Cult not indicated COVID-19 PCR 04/26/20 04/27/20 04/27/20 19:40 05:35 05:35 WBC 6.8 RBC 4.26 L Hgb 13.1 L Hct 38.6 L MCV 90.7 MCH 30.7 MCHC 33.9 RDW 13.5 Plt Count 313 Neut % (Auto) 67.5 Lymph % (Auto) 17.7 L [place] % (Auto) 11.3 Eos % (Auto) 2.7 Baso % (Auto) 0.8 Neut # (Auto) 4600 Lymph # (Auto) 1200 [place] # (Auto) 800 Eos # (Auto) 200 Baso # (Auto) 100 Sodium 130 L Potassium 4.0 Chloride 94 L Carbon Dioxide 33 H BUN 16 Creatinine 0.81 Estimated GFR > 60.0 BUN/Creatinine Ratio 19.8 Glucose 122 H Hemoglobin A1c Calcium 9.6 Magnesium 2.2 Ferritin Total Bilirubin AST ALT Alkaline Phosphatase Total Creatine Kinase CK-MB (CK-2) CK-MB (CK-2) Rel Index Troponin I NT-Pro-B Natriuret Pep Total Protein Albumin Globulin Albumin/Globulin Ratio Procalcitonin Urine RBC Urine WBC Ur Squamous Epith Cells Urine Bacteria Ur Culture Indicated? COVID-19 PCR Negative Bilateral foot x-rays show severe degenerative changes in the IP joint of the great toe bilaterally. There is significant deformity. The right is slightly worse than the left. On the right foot there is evidence of the 5th metatarsal base fracture or Santiago fracture that is nondisplaced. There is no obvious other findings consistent with Charcot joints. Assessment & Plan Assessment & Plan narrative: Impression right foot 5th metatarsal base fracture or Santiago fracture recommendations and plan I have recommended a short leg walking boot he can be weight-bearing as tolerated on the right leg as long as he is using his boot. His left foot has a small diabetic foot ulcer there is no significant cellulitis, he has got a normal white count and he is afebrile. The base appears to be benign with granulation tissue. I have recommended a postop shoe and he can be weight-bearing as tolerated on the left lower extremity. He should follow up with Podiatry on an outpatient basis.
--- NOTE | 2020-04-27 16:13 | PM.DS.1 ---
History of Present Illness History of Present Illness Date Patient Seen: 04/27/20 Time Patient Seen: 16:13 Chief complaint: Global vs metabolic encephalopathy Narrative: As per PAT Cali: Braulio Moore is an 84-year-old male with history of chronic atrial fibrillation anticoagulated on Pradaxa, AICD for ventricular tachycardia, CAD, well compensated CHF, diet-controlled type 2 diabetes, chronic UTI presented to the ED with a several day old complaints difficulty nausea, vomiting, word finding difficulties and maintaining his balance. He denies fever though he does state he is breathing faster than normal and has been taking deeper and longer breaths to compensate, denies history of smoking or exposure to people with COVID-19. in the room states that he would sometimes go to the grocery store but has not been outside of their house for 1 week. Presence of his AICD precludes a MRI. He states since being bed in the emergency department he feels 100% better. He does state that he is on his last day of taking antibiotics for a chronic left toe ulcer. He was due to go to the wound clinic on . He also states that he fell inside of his home was a result of his foot not being in his shoe entirely and rolled his right ankle and that is been swollen ever since. He denies any chest pain, he does endorse having nausea with some vomiting, he denies dysuria or constipation. He did state that right after starting his course of oral Keflex he had a bout of diarrhea but has not had that since. He is currently on his last dose of Keflex. He does state that he has diet-controlled diabetes and his in the room stated his last blood sugars have been running in the low 110s. His last A1c was 6.1 in February of this year. He states he is unable to feel the bottom of his feet and has sustained fractures in the past because of this. On April 19, the patient had an x-ray of his left foot and the findings were suspicious of a osteomyelitis of the left great toe. Recommended an MRI however given the patient's presence of a AICD, this may be contraindicated. In the ED x-ray of the right ankle indicates a Partially visualized fracture of the base of the 5th metatarsal. Recommend x-rays of the foot.Temperature was 97.3?, blood pressure 114/69, heart rate 91, respiratory rate 18, oxygen saturation 98% on room air, he weighs 79.3 kg with a BMI of 20.2. CBC largely within normal limits, sodium was 127, potassium 3.9, chloride 91, bicarb 28, BUN 20, creatinine 0.91, with a GFR greater than 60, glucose 167, A1c is 6.0, calcium 9.6, magnesium 1.5, CK is 34, proBNP was 460, and COVID-19 PCR was negative. Discharge Providers Provider Date of admission: 04/26/20 20:36 Discharge Date: 04/27/20 Primary care physician: Boyd Fairchild DO Consults: 04/26/20 20:44 Consult to Physician Routine Comment: Consulting Provider: Skey Chopra Reason for consultation: Left great toe ulcer, suspected osteomylitis, Santiago fx, right foot Has provider been notified: Yes 04/27/20 12:45 Consult to Physical Therapy Evaluate & Treat Comment: right foot short boot, left foot postop shoe, wbat Physician Instructions: Evaluate and Treat 04/27/20 15:50 Consult to Home Health Routine Comment: right foot fx, left foot ulcer, imbalance Reason For Exam: Set up FWW for home use Discharge provider: Deyvi Tejada DO Summary Hospital Course Discharge Diagnosis: hyponatremia, acute and present on admission, improved. Non healing ulcer of the plantar surface of the right great toe, chronic and present on admission, osteomyelitis ruled out. Left ankle injury found to have a fracture of the fifth metatarsal, present on admission Diabetes type 2, controlled Atrial fibrillation anticoagulated on dabigatran, chronic History of CHF Hospital Course: Braulio oJhnson an 84 year old male who was admitted with concerns of worsening imbalance over the previous few weeks, likely secondary to non-healing ulcer of his right lower extremity and also secondary to left 5th toe metatarsal fracture. He also had mild hyponatremia but this was not likely the cause of his symptoms. Unable to obtain an MRI given the patient had a cardiac device for further evaluation of possible, but unlikely TIA as well as possible osteo. Patient was seen by orthopedic surgery whom did not feel that there were necessary operative interventions and did not think the non healing ulcer represented osteomyelitis. He was given bilateral boots with PT. Once he ambulated well with physical therapy he was discharged home shortly after admission. He had planned follow up with wound clinic the day after discharge and will follow up with orthopedic surgery as an outpatient. Exam Vital Signs (past 8 hours): - 04/27/20 10:00 04/27/20 12:16 Temperature 97.3 F L Pulse Rate 83 72 Respiratory Rate 15 Blood Pressure 136/73 111/73 Pulse Oximetry 100 Oxygen Delivery Method Room Air Oxygen Flow Rate 0 Narrative Exam Narrative: Gen: Alert, oriented, well-developed 84 y.o. male, appears younger than stated age, but ill appearing HEENT: normocephalic, atraumatic, conjunctiva clear, sclera non-icteric, oral mucosa pink and moist Neck: supple, full ROM, no JVD, trachea is midline Resp: Lungs CTA, non-labored breathing CV: RRR, no murmur or rubs Abd: soft, non-tender, normoactive BTs Skin: no lesions or rashes, dry and intact Neuro: Alert and oriented X 4 w/no focal deficits. Speech clear and coherent. Extremities: Lateral swelling of the left ankle, 1 cm draining ulcer of the right great toe. moves all 4 extremities, is ambulatory, negative Ameya?s sign Psyche: normal mood and affect. Objective Labs Result Diagrams: 04/27/20 05:35 04/27/20 05:35 Labs: Laboratory Results - last 24 hr 04/26/20 04/26/20 04/26/20 18:46 18:46 18:46 WBC 7.3 RBC 4.38 L Hgb 13.7 Hct 39.6 L MCV 90.5 MCH 31.3 MCHC 34.6 RDW 13.5 Plt Count 333 Neut % (Auto) 71.0 Lymph % (Auto) 17.5 L [place] % (Auto) 9.2 Eos % (Auto) 1.6 L Baso % (Auto) 0.7 Neut # (Auto) 5200 Lymph # (Auto) 1300 [place] # (Auto) 700 Eos # (Auto) 100 Baso # (Auto) 0 Sodium 127 L Potassium 3.9 Chloride 91 L Carbon Dioxide 28 BUN 20 Creatinine 0.91 Estimated GFR > 60.0 BUN/Creatinine Ratio 22.0 Glucose 167 H Hemoglobin A1c Calcium 9.6 Magnesium 1.5 L Ferritin 138 Total Bilirubin 1.3 AST 30 ALT 18 Alkaline Phosphatase 67 Total Creatine Kinase 34 L CK-MB (CK-2) TNP CK-MB (CK-2) Rel Index TNP Troponin I < 0.012 NT-Pro-B Natriuret Pep 460 H Total Protein 7.9 Albumin 4.2 Globulin 3.7 Albumin/Globulin Ratio 1.1 Procalcitonin Urine RBC Urine WBC Ur Squamous Epith Cells Urine Bacteria Ur Culture Indicated? COVID-19 PCR 04/26/20 04/26/20 04/26/20 18:46 18:46 19:30 WBC RBC Hgb Hct MCV MCH MCHC RDW Plt Count Neut % (Auto) Lymph % (Auto) [place] % (Auto) Eos % (Auto) Baso % (Auto) Neut # (Auto) Lymph # (Auto) [place] # (Auto) Eos # (Auto) Baso # (Auto) Sodium Potassium Chloride Carbon Dioxide BUN Creatinine Estimated GFR BUN/Creatinine Ratio Glucose Hemoglobin A1c 6.0 Calcium Magnesium Ferritin Total Bilirubin AST ALT Alkaline Phosphatase Total Creatine Kinase CK-MB (CK-2) CK-MB (CK-2) Rel Index Troponin I NT-Pro-B Natriuret Pep Total Protein Albumin Globulin Albumin/Globulin Ratio Procalcitonin < 0.05 Urine RBC 10-30/hpf H Urine WBC 1-5/hpf Ur Squamous Epith Cells 5-10 /hpf H Urine Bacteria None seen Ur Culture Indicated? Cult not indicated COVID-19 PCR 04/26/20 04/27/20 04/27/20 19:40 05:35 05:35 WBC 6.8 RBC 4.26 L Hgb 13.1 L Hct 38.6 L MCV 90.7 MCH 30.7 MCHC 33.9 RDW 13.5 Plt Count 313 Neut % (Auto) 67.5 Lymph % (Auto) 17.7 L [place] % (Auto) 11.3 Eos % (Auto) 2.7 Baso % (Auto) 0.8 Neut # (Auto) 4600 Lymph # (Auto) 1200 [place] # (Auto) 800 Eos # (Auto) 200 Baso # (Auto) 100 Sodium 130 L Potassium 4.0 Chloride 94 L Carbon Dioxide 33 H BUN 16 Creatinine 0.81 Estimated GFR > 60.0 BUN/Creatinine Ratio 19.8 Glucose 122 H Hemoglobin A1c Calcium 9.6 Magnesium 2.2 Ferritin Total Bilirubin AST ALT Alkaline Phosphatase Total Creatine Kinase CK-MB (CK-2) CK-MB (CK-2) Rel Index Troponin I NT-Pro-B Natriuret Pep Total Protein Albumin Globulin Albumin/Globulin Ratio Procalcitonin Urine RBC Urine WBC Ur Squamous Epith Cells Urine Bacteria Ur Culture Indicated? COVID-19 PCR Negative PFSH Medical History Atrial fibrillation, chronic BPH (benign prostatic hyperplasia) Chronic UTI Coronary artery disease Diabetic foot ulcer Hyperlipidemia Hypertension Type 2 diabetes mellitus Surgical History AICD (automatic cardioverter/defibrillator) present Family History Mother Congestive heart failure Pneumonia Father Pneumonia Social History household members: spouse Smoking Status: Never smoker alcohol intake: former substance use type: marijuana Discharge Plan Discharge Plan Patient Disposition: Home Provider Discharge Comment: You were admitted to the hospital with balance difficulties. Unable to obtain an MRI due to your heart history. You are on a blood thinner already. You were found to have a fracture in your R foot along with your L foot ulcer that does not appear to have gone to the bone. Please follow up with podiatry and wound care as referred by your PCP. Your wound does not appear to be infected and antibiotics can be stopped. Discharge orders & Medications Prescriptions: Continued losartan 25 mg tablet 25 mg PO BID Qty: 180 RF: 3 spironolactone [Aldactone] 25 mg tablet 25 mg PO QDAY Qty: 90 RF: 3 Pradaxa 150 mg capsule 150 mg PO BID Qty: 180 RF: 3 hydrochlorothiazide 25 mg tablet 25 mg PO HS Qty: 90 RF: 3 metoprolol tartrate 100 mg tablet 100 mg PO BID RF: 0 tamsulosin [Flomax] 0.4 mg capsule 0.4 mg PO QAM RF: 0 finasteride 5 mg Tablet 5 mg PO BEDTIME RF: 0 Discontinued cephalexin 500 mg capsule 500 mg PO Q6HR RF: 0 Follow up/Referrals: Boyd Fairchild DO [Primary Care Provider] - Diet/Activity/Treatments Diet: Diet as Tolerated and Low-sodium Activity: As tolerated Discharge Data Primary Care Provider: Boyd Fairchild Attending Provider: Adilia Sims VTE Deep Vein Thrombosis/Pulmonary Embolism Present on Admission: No
--- NOTE | 2020-04-27 17:31 | PT.IIE ---
Surgical History (Last Reviewed 04/27/20 @ 12:49 by Skye Chopra MD) AICD (automatic cardioverter/defibrillator) present Medical History (Last Reviewed 04/27/20 @ 12:49 by Skye Chopra MD) Atrial fibrillation, chronic BPH (benign prostatic hyperplasia) Chronic UTI Coronary artery disease Diabetic foot ulcer Hyperlipidemia Hypertension Type 2 diabetes mellitus Physical Therapy Inpatient Evaluation/Re-Eval M1 PT/OT-IP Prior Functional Status Start: 04/27/20 13:30 Freq: NEEDED Status: Active Protocol: Document 04/27/20 15:25 HH (Rec: 04/27/20 15:30 HH [id number]) Medical Review Prior Functional Status Medical History Reviewed Yes Diet/Fluid Consistency Regular Communication no deficits noted. able to make needs known Mobility and Gait pt amb with SPC at home and community at all times. Pt states he was unsteady during night time for bathroom access and needed to supervise occasionally. Activities of Daily Living and IADL's independent for ADLs and IADLs with SPCs. Prior Functional Level (Other details) pt was admitteded to in january for CVA vs TIA but pt was d/c home after and returned to 90% of baseline. Social History Household Members spouse Living Arrangements House Number of Floors (Floors) One Floor Number of Stairs To Enter/Railing? 1 level entrance level entry through garage Home Environment Standard Height Toilet,Walk in Shower Home Equipment Straight Cane,Grab Bars Near Toilet Employment Status Retired Additional Social History Comment Pt lives with spouse in [place]. And spouse is available to assist pt as needed. M2 PT-IP Current Condition Start: 04/27/20 13:30 Freq: NEEDED Status: Active Protocol: Document 04/27/20 15:25 DE (Rec: 04/27/20 16:50 DE [id number]) Physical Therapy Current Condition Current Condition Evaluation Date 04/27/20 Treatment Diagnosis R 5th metatarsal base fx, L foot diabetic ulcer; Difficulty in walking Onset Date 04/26/20 Precautions Other Precautions WBAT with L post-op shoe and R short-leg walking boot. Weight Bearing Status Weight Bearing Status Weight Bear as Tolerated M3 PT-IP Subjective Start: 04/27/20 13:30 Freq: NEEDED Status: Active Protocol: Document 04/27/20 15:25 DE (Rec: 04/27/20 16:50 DE [id number]) Subjective Physical Therapy Visit Type Type Initial Evaluation Visit Start Time 15:32 Visit Stop Time 16:03 Total Visit Minutes 31 Notes SPT Art led session under direct supervision of PT Leonardo. Number of MANAGED SERVICES CONSULTANT Visits 0 Physical Therapy Visit Comments Patient Comments Pt is agreeable to do PT. M4 PT-IP Mobility and Gait Start: 04/27/20 13:30 Freq: NEEDED Status: Active Protocol: Document 04/27/20 15:25 DE (Rec: 04/27/20 16:50 DE [id number]) PT-Bed Mobility Assessment Supine to Sit Supine to Sit Standby Assistance,Head of Bed Elevated PT-Transfer Assessment Sit to and From Stand Sit to and from Stand Contact Guard Assistance,Use of Upper Extremities Equipment Transfer Assistive Device Gait Belt,Straight Cane,Front Wheeled Walker Orthotic/Prosthetic Devices or Brace: Yes Transfers Transfer Destination Chair Transfer Technique Amb with FWW Transfer Ability Level of Assist Contact Guard Assistance Comments Mobility Comments Pt was inclined in bed upon arrival. Spouse was present at bedside. Pt completed supine to sit at R EOB with elevated HOB and SBA. At EOB, L post-op shoe and R short-leg walking boot were fitted. Pt performed sit to stand with FWW CGA. Pt amb ~8 ft in the room and sat down on bed with FWW CGA. Pt performed sit to stand again with R SPC and CGA. Pt used his L hand on the bed to push off. Pt then amb ~210 ft in the hallway with SPC CGA. Pt demonstrated some unsteadiness with several LOB, especially during turning. Pt was able to recover balance himself. Pt then amb ~210 ft in the hallway with FWW CGA. Pt was much more steady without any LOB. Cues were provided for walking slower and being careful about the boot and shoe hitting each other. Pt returned to the room and sat down in the chair FWW CGA. remained in the room. They were getting ready to d/c . Gait Assessment Gait Gait Assistance Required: Contact Guard Assist Distance (Feet) 420 Able to Maintain Weight Bearing Status Yes During Gait Assistive Devices Assistive Device Gait Belt,Straight Cane,Front Wheeled Walker Orthotic/Prosthetic Devices or Brace: Yes Gait Deviations General Gait Pattern Within Normal Limits Factors Limiting Gait Function Factors Limiting Gait Function Poor Balance Comments Gait Comments See mobility comments. Stair Climbing Assessment Comments Stair Climbing Comments Not assessed. PT-Balance Assessment Sitting Balance and Reactions Static Sitting Balance Ability Normal Dynamic Sitting Balance Ability Normal Standing Balance and Reactions Static Standing Balance Ability Normal Dynamic Standing Balance Ability Good M5 PT-IP Objective Assessments Start: 04/27/20 13:30 Freq: NEEDED Status: Active Protocol: Document 04/27/20 15:25 DE (Rec: 04/27/20 16:50 DE [id number]) Orientation Orientation/Cognition Level of Alertness Alert Orientation Name,Age,Birthday,Month,Date, Year,Day of Week,Place, Situation Language Function Ability No Deficits Noted Safety Awareness Understands Safety Issues Memory Description No Deficits Noted Comments Pt demonstrated confusion at times and needed simple cues. Gross Range of Motion Lower Extremity ROM Assessment Within Functional Limits Strength Lower Extremity Strength Assessment Within Functional Limits Coordination Assessment Gross Coordination Gross Coordination WNL Sensation Assessment Sensation Gross Sensation WNL Light Touch Intact Muscle Tone Muscle Tone WNL Yes M6 PT-IP Treatment Start: 04/27/20 13:30 Freq: NEEDED Status: Active Protocol: Document 04/27/20 15:25 DE (Rec: 04/27/20 16:50 DE [id number]) Physical Therapy Treatment Education Education Provided Weight Bearing Status,Safety Equipment Issued Equipment Type and Company FWW, L post-op shoe, and R short-leg walking boot were dispensed. Other Treatments Other Treatment Performed Provided education on safety, WB status, role of PT. M7 PT-IP Assessment and Plan Start: 04/27/20 13:30 Freq: NEEDED Status: Active Protocol: Document 04/27/20 15:25 DE (Rec: 04/27/20 16:50 DE [id number]) PT Summary Assessment and Plan Potential Rehabilitation Potential Excellent Status of Condition at Evaluation Stable Summary Impairments Pain,ROM,Strength,Balance,Bed Mobility,Transfers,Gait, Activity Tolerance Progress Towards Goals Safe For Discharge Assessment Summary Braulio is a 84 yo male who was admitted to the hospital for metabolic encephalopathy, L foot diabetic ulcer, fracture in 5th metatarsal of the R foot. At baseline, pt was modified IND with use of SPC for all mobility and amb. On evaluation, pt required SBA- CGA for all mobility and amb with FWW, L post-op shoe, and R short-leg walking boot. Pt demonstrated some unsteadiness and LOB with SPC during amb but was steady with FWW. Pt amb ~210 ft without any unsteadiness or LOB with FWW CGA. FWW, L post-op shoe, and R short-leg walking boot were fitted and dispensed at this visit. PT anticipates pt will be safe to d/c home with assistance once medically cleared. Frequency of Treatment Frequency Of Treatment Discharge Discharge Recommendations PT Discharge Recommendations Home with Assistance Equipment Needed for Home Before L post-op shoe, R short-leg Discharge walking boot, FWW Transportation Needs at Discharge Private Vehicle Treatment was provided by Art Kunz, SPT and supervised by Leonardo Knowles, PT. I personally reviewed this note and agree with its contents.
--- NOTE | 2020-04-27 17:44 | PC.NURSE ---
Pt DC at 1744 in WC with Spouse. IV discontinued, tolerated well, no signs of respiratory or cardiac distress, VSS WNL. Pt information given alongside educational materials. Pt signed and indicated understanding of care. Pt and spouse asked pertinent questions and were satisfied with answers given.
== END 2020-04-27 17:47 | disposition home or self-care (01) ==
LOC: ED 20:05 → AC 20:37
PROVIDERS: Admitting Provider Nurse Practitioner Family; Emergency Provider Emergency Medicine; Family Provider Urology; PCP Family Medicine; Referring Provider Emergency Medicine; Visit Provider Nurse Practitioner Family
DX: G93.41 Metabolic encephalopathy (principal); R41.0 Disorientation, unspecified; R42 Dizziness and giddiness; I48.20 Chronic atrial fibrillation, unspecified; Z79.01 Long term (current) use of anticoagulants; I25.10 Atherosclerotic heart disease of native coronary artery without angina pectoris; I11.0 Hypertensive heart disease with heart failure; I50.9 Heart failure, unspecified; E11.9 Type 2 diabetes mellitus without complications; Z95.810 Presence of automatic (implantable) cardiac defibrillator; L97.529 Non-pressure chronic ulcer of other part of left foot with unspecified severity; M84.478A Pathological fracture, left toe(s), initial encounter for fracture; W01.0XXA Fall on same level from slipping, tripping and stumbling without subsequent striking against object, initial encounter; Z11.59 Encounter for screening for other viral diseases; N40.0 Benign prostatic hyperplasia without lower urinary tract symptoms; E78.5 Hyperlipidemia, unspecified; E87.1 Hypo-osmolality and hyponatremia; Z86.73 Personal history of transient ischemic attack (TIA), and cerebral infarction without residual deficits
CPT/HCPCS: 36415; 70450; 71045; 73610; 73630; 80048; 80053; 81003; 81015; 82550; 82728; 82962; 83036; 83735; 83880; 84145; 84484; 85025; 87635; 93005; 96361; 96365; 97162; 97530; 99284; G0378

== ENCOUNTER → 2020-05-17 12:56 | Outpatient (CLI) | payer OTHER, SELFPAY ==
[2020-04-26 21:25] VITALS: BMI 28.2
[2020-05-17 14:11] LABS: Appearance Urine UA CLOUDY; Bilirubin Urine UA NEGATIVE (NEGATIVE); Color Urine UA YELLOW; Glucose Urine UA NEGATIVE (Negative); Ketones Urine UA NEGATIVE (NEGATIVE); Leukocyte Esterase Urine UA 2+ (NEGATIVE); Nitrite Urine UA POSITIVE (Negative); Occult Blood Urine UA 3+ (Negative); Protein Urine UA TRACE (Negative); Specific Gravity Urine UA 1.025 (1.000-1.035); Urobilinogen Urine UA 0.2 E.U./dL (0.2)
[2020-05-17 14:50] LABS: RBC Urine >100/HPF (0-5/HPF)
[2020-05-17 14:51] LABS: Bacteria Urine Many (>30); Culture Indicated Urine Specimen Cultured; Squamous Epithelial Cell Urine 1-5 /HPF (0-5/HPF); WBC Urine 30-100/HPF (0-5/HPF)
== END ==
PROVIDERS: Family Provider Urology; PCP Family Medicine; Referring Provider Family Medicine; Visit Provider Family Medicine
DX: N39.0 Urinary tract infection, site not specified (principal)
CPT/HCPCS: 81001; 87077; 87086; 87186

== ENCOUNTER → 2020-05-23 10:50 | Outpatient (CLI) | payer OTHER, SELFPAY ==
[2020-02-13 15:55] VITALS: BMI 28.0
[2020-04-26 21:25] VITALS: BMI 28.2
== END ==
PROVIDERS: Family Provider Urology; PCP Family Medicine; Referring Provider Physician Assistant; Visit Provider Family Medicine
DX: E11.621 Type 2 diabetes mellitus with foot ulcer (principal); L97.521 Non-pressure chronic ulcer of other part of left foot limited to breakdown of skin; M21.6X2 Other acquired deformities of left foot
CPT/HCPCS: 11042; 99204; 99213

== ENCOUNTER → 2020-05-30 11:01 | Outpatient (CLI) | payer OTHER, SELFPAY | PROVIDERS: Family Provider Urology; PCP Family Medicine; Referring Provider Family Medicine; Visit Provider Family Medicine | DX: E11.621 Type 2 diabetes mellitus with foot ulcer (principal); L97.522 Non-pressure chronic ulcer of other part of left foot with fat layer exposed; M21.6X2 Other acquired deformities of left foot | CPT/HCPCS: 29445 ==

== ENCOUNTER → 2020-06-01 13:18 | Outpatient (CLI) | payer OTHER, SELFPAY | PROVIDERS: Family Provider Urology; PCP Family Medicine; Referring Provider Family Medicine; Visit Provider Family Medicine | DX: E11.621 Type 2 diabetes mellitus with foot ulcer (principal); L97.522 Non-pressure chronic ulcer of other part of left foot with fat layer exposed | CPT/HCPCS: 29445 ==

== ENCOUNTER → 2020-06-08 10:29 | Outpatient (CLI) | payer OTHER, SELFPAY | PROVIDERS: Family Provider Urology; PCP Family Medicine; Referring Provider Family Medicine; Visit Provider Family Medicine | DX: E11.621 Type 2 diabetes mellitus with foot ulcer (principal); L97.521 Non-pressure chronic ulcer of other part of left foot limited to breakdown of skin; M21.6X2 Other acquired deformities of left foot | CPT/HCPCS: 11042 ==

== ENCOUNTER → 2020-06-15 09:20 | Outpatient (CLI) | payer OTHER, SELFPAY | PROVIDERS: Family Provider Urology; PCP Family Medicine; Referring Provider Family Medicine; Visit Provider Family Medicine | DX: E11.621 Type 2 diabetes mellitus with foot ulcer (principal); L97.521 Non-pressure chronic ulcer of other part of left foot limited to breakdown of skin; M21.6X2 Other acquired deformities of left foot | CPT/HCPCS: 97597 ==

== ENCOUNTER → 2020-06-22 11:02 | Outpatient (CLI) | payer OTHER, SELFPAY | PROVIDERS: Family Provider Urology; PCP Family Medicine; Referring Provider Family Medicine; Visit Provider Family Medicine | DX: E11.621 Type 2 diabetes mellitus with foot ulcer (principal); L97.521 Non-pressure chronic ulcer of other part of left foot limited to breakdown of skin | CPT/HCPCS: 29445 ==

== ENCOUNTER → 2020-06-29 09:24 | Outpatient (CLI) | payer OTHER, SELFPAY | PROVIDERS: Family Provider Urology; PCP Family Medicine; Referring Provider Family Medicine; Visit Provider Family Medicine | DX: E11.621 Type 2 diabetes mellitus with foot ulcer (principal); L97.522 Non-pressure chronic ulcer of other part of left foot with fat layer exposed; M21.6X2 Other acquired deformities of left foot | CPT/HCPCS: 11042; 99212 ==

== ENCOUNTER → 2020-07-06 10:22 | Outpatient (CLI) | payer OTHER, SELFPAY | PROVIDERS: Family Provider Urology; PCP Family Medicine; Referring Provider Family Medicine; Visit Provider Family Medicine | DX: E11.621 Type 2 diabetes mellitus with foot ulcer (principal); L08.9 Local infection of the skin and subcutaneous tissue, unspecified; L97.521 Non-pressure chronic ulcer of other part of left foot limited to breakdown of skin; M21.6X2 Other acquired deformities of left foot | CPT/HCPCS: 11042; 87070; 87077; 87147; 87186; 87205; 99212; 99214 ==

== ENCOUNTER → 2020-07-06 14:37 | Outpatient (ROUT) | payer OTHER, SELFPAY | PROVIDERS: Family Provider Urology; PCP Family Medicine; Visit Provider Family Medicine | DX: L08.9 Local infection of the skin and subcutaneous tissue, unspecified (principal) | CPT/HCPCS: 87070; 87077; 87147; 87186; 87205 ==

== ENCOUNTER → 2020-07-08 09:38 | Outpatient (CLI) | payer OTHER, SELFPAY ==
[2020-07-08 10:27] LABS: Appearance Urine UA SL CLOUDY; Bilirubin Urine UA NEGATIVE (NEGATIVE); Color Urine UA YELLOW; Glucose Urine UA NEGATIVE (Negative); Ketones Urine UA 1+ (NEGATIVE); Leukocyte Esterase Urine UA 1+ (NEGATIVE); Nitrite Urine UA NEGATIVE (Negative); Occult Blood Urine UA 3+ (Negative); Protein Urine UA NEGATIVE (Negative); Specific Gravity Urine UA 1.025 (1.000-1.035); Urobilinogen Urine UA 0.2 E.U./dL (0.2)
[2020-07-08 11:02] LABS: Bacteria Urine Moderate (10-30); RBC Urine >100/HPF (0-5/HPF); Squamous Epithelial Cell Urine 1-5 /HPF (0-5/HPF); WBC Urine 10-30/HPF (0-5/HPF)
[2020-07-08 11:03] LABS: Culture Indicated Urine Specimen Cultured
[2020-07-08 12:25] LABS: BUN Creatinine Ratio 24.7 (6-22); Blood Urea Nitrogen 21 mg/dL (9-20); Calcium 9.8 mg/dL (8.4-10.2); Carbon Dioxide 27 mmol/L (22-32); Chloride 105 mmol/L (98-107); Cholesterol 160 mg/dL (140-199); Estimated Glomerular Filt Rate > 60.0 mL/min (>60); Glucose 108 mg/dL (80-110); HDL Cholesterol 46 mg/dL (40-60); HEMOLYSIS < 15 (0-50); LDL Cholesterol Calculated 100 mg/dL (<100); Potassium 4.1 mmol/L (3.4-5.1); Sodium 136 mmol/L (137-145); Triglycerides 69 mg/dL (35-150)
[2020-07-08 13:04] LABS: Thyroid Stimulating Hormone 1.05 uIU/mL (0.47-4.68)
[2020-07-11 17:41] LABS: Osmolality, Serum 290 mOsmol/kg (280-301)
== END ==
PROVIDERS: Internal Medicine Cardiovascular Disease; Family Provider Urology; PCP Family Medicine; Referring Provider Family Medicine; Visit Provider Family Medicine
DX: N39.0 Urinary tract infection, site not specified (principal); I10 Essential (primary) hypertension
CPT/HCPCS: 36415; 80048; 80061; 81001; 83930; 84443; 87086

== ENCOUNTER → 2020-07-13 09:52 | Outpatient (CLI) | payer OTHER, SELFPAY | PROVIDERS: Family Provider Urology; PCP Family Medicine; Referring Provider Family Medicine; Visit Provider Family Medicine | DX: E11.621 Type 2 diabetes mellitus with foot ulcer (principal); L97.525 Non-pressure chronic ulcer of other part of left foot with muscle involvement without evidence of necrosis | CPT/HCPCS: 99213 ==

== ENCOUNTER → 2020-07-16 14:20 | Outpatient (CLI) | payer OTHER, SELFPAY ==
--- NOTE | 2020-07-16 14:22 | DI.RAD.S_ITS ---
PROCEDURE: XR TOE LT MIN 2V INDICATIONS: worsening of left Great toe ulcer/infection TECHNIQUE: 3 views of the left 1st toe(s) acquired. COMPARISON: None. FINDINGS: Bones: There is marked irregularity and erosion involving the distal aspect of the proximal phalanx of the 1st digit, as well as the proximal aspect of the distal phalanx of the 1st digit. No suspicious bony lesions. Soft tissues: No suspicious soft tissue densities. IMPRESSION: Septic arthritis involving the interphalangeal joint the left 1st digit associated with osteomyelitis. Dictated by: Jovan Oneal M.D. on 07/16/2020 at 13:43 Approved by: Jovan Oneal M.D. on 07/16/2020 at 13:45
[2020-07-16 14:52] LABS: Add Manual Diff / Slide Review NO; Basophils Absolute Auto 100 /uL (0-100); Basophils Percent Auto 0.8 % (0-2); Eosinophils Absolute Auto 500 /uL (0-450); Eosinophils Percent Auto 7.2 % (2-4); Hematocrit 39.6 % (41-53); Hemoglobin 13.1 g/dL (13.5-17.5); Lymphocytes Absolute Auto 1600 /uL (1100-4500); Lymphocytes Percent Auto 22.3 % (25-40); Mean Corpuscular HGB Conc 33.2 % (30-36); Mean Corpuscular Hemoglobin 30.3 PG (26-34); Mean Corpuscular Volume 91.2 fL (80-100); Monocytes Absolute Auto 800 /uL (0-900); Monocytes Percent Auto 10.9 % (3-14); Neutrophils Absolute Auto 4300 /uL (1500-7000); Neutrophils Percent Auto 58.8 % (50-75); Platelet Count 291 X10^3/uL (150-400); Red Blood Cell Count 4.35 X10^6/uL (4.5-5.9); Red Cell Distribution Width 14.7 % (11.6-14.8); White Blood Cell Count 7.4 X10^3/uL (4.5-11.0)
[2020-07-16 15:09] LABS: C-Reactive Protein Quant 0.8 mg/dL (<1.0)
[2020-07-16 15:13] LABS: Erythrocyte Sedimentation Rate 12 MM/HR (0-15)
== END ==
PROVIDERS: Family Provider Urology; PCP Family Medicine; Referring Provider Student in an Organized Health Care Education/Training Program; Visit Provider Student in an Organized Health Care Education/Training Program
DX: E11.621 Type 2 diabetes mellitus with foot ulcer (principal); L97.529 Non-pressure chronic ulcer of other part of left foot with unspecified severity
CPT/HCPCS: 73660; 85025; 85651; 86140

== ENCOUNTER → 2020-07-20 11:05 | Outpatient (CLI) | payer OTHER, SELFPAY | PROVIDERS: Family Provider Urology; PCP Family Medicine; Referring Provider Family Medicine; Visit Provider Family Medicine | DX: E11.621 Type 2 diabetes mellitus with foot ulcer (principal); L97.521 Non-pressure chronic ulcer of other part of left foot limited to breakdown of skin; M21.6X2 Other acquired deformities of left foot; Z79.2 Long term (current) use of antibiotics | CPT/HCPCS: 11042; 87070; 87077; 87186; 87205; 97597; 99215 ==

== ENCOUNTER → 2020-07-22 11:21 | Outpatient (CLI) | payer OTHER, SELFPAY | PROVIDERS: Family Provider Urology; PCP Family Medicine; Referring Provider Family Medicine; Visit Provider Family Medicine | DX: E11.621 Type 2 diabetes mellitus with foot ulcer (principal); L97.523 Non-pressure chronic ulcer of other part of left foot with necrosis of muscle; L97.521 Non-pressure chronic ulcer of other part of left foot limited to breakdown of skin; Z48.01 Encounter for change or removal of surgical wound dressing | CPT/HCPCS: 99213 ==

== ENCOUNTER → 2020-07-25 09:48 | Outpatient (CLI) | payer OTHER, SELFPAY | PROVIDERS: Family Provider Urology; PCP Family Medicine; Referring Provider Family Medicine; Visit Provider Family Medicine | DX: E11.621 Type 2 diabetes mellitus with foot ulcer (principal); L97.521 Non-pressure chronic ulcer of other part of left foot limited to breakdown of skin; M21.6X2 Other acquired deformities of left foot; Z79.2 Long term (current) use of antibiotics | CPT/HCPCS: 99212; 99213 ==

== ENCOUNTER → 2020-08-01 10:00 | Outpatient (CLI) | payer OTHER, SELFPAY | PROVIDERS: Family Provider Urology; PCP Family Medicine; Referring Provider Internal Medicine Cardiovascular Disease; Visit Provider Family Medicine | DX: E11.621 Type 2 diabetes mellitus with foot ulcer (principal); L97.521 Non-pressure chronic ulcer of other part of left foot limited to breakdown of skin; M86.172 Other acute osteomyelitis, left ankle and foot; M21.6X2 Other acquired deformities of left foot; L08.89 Other specified local infections of the skin and subcutaneous tissue; Z79.2 Long term (current) use of antibiotics | CPT/HCPCS: 11042; 97597; 99213 ==

== ENCOUNTER → 2020-08-08 10:27 | Outpatient (CLI) | payer OTHER, SELFPAY | PROVIDERS: Family Provider Urology; PCP Family Medicine; Referring Provider Family Medicine; Visit Provider Family Medicine | DX: E11.621 Type 2 diabetes mellitus with foot ulcer (principal); L97.521 Non-pressure chronic ulcer of other part of left foot limited to breakdown of skin; M86.172 Other acute osteomyelitis, left ankle and foot; M21.6X2 Other acquired deformities of left foot; Z79.2 Long term (current) use of antibiotics | CPT/HCPCS: 11042; 97597 ==

== ENCOUNTER → 2020-08-15 11:20 | Outpatient (CLI) | payer OTHER, SELFPAY | PROVIDERS: Family Provider Urology; PCP Family Medicine; Referring Provider Family Medicine; Visit Provider Family Medicine | DX: E11.621 Type 2 diabetes mellitus with foot ulcer (principal); L97.521 Non-pressure chronic ulcer of other part of left foot limited to breakdown of skin; M86.172 Other acute osteomyelitis, left ankle and foot; M21.6X2 Other acquired deformities of left foot; Z79.2 Long term (current) use of antibiotics | CPT/HCPCS: 99213 ==

== ENCOUNTER → 2020-08-31 12:06 | Outpatient (CLI) | payer OTHER, SELFPAY | PROVIDERS: Family Provider Urology; PCP Family Medicine; Referring Provider Family Medicine; Visit Provider Family Medicine | DX: E11.621 Type 2 diabetes mellitus with foot ulcer (principal); L97.521 Non-pressure chronic ulcer of other part of left foot limited to breakdown of skin; M86.172 Other acute osteomyelitis, left ankle and foot; M21.6X2 Other acquired deformities of left foot; Z79.2 Long term (current) use of antibiotics | CPT/HCPCS: 97597; 99212 ==

== ENCOUNTER → 2020-09-01 17:37 | Outpatient (CLI) | payer OTHER, SELFPAY | PROVIDERS: Family Provider Urology; PCP Family Medicine; Visit Provider Registered Nurse Diabetes Educator | DX: N39.0 Urinary tract infection, site not specified (principal) | CPT/HCPCS: 87086 ==

== ENCOUNTER → 2020-09-06 09:18 | Outpatient (CLI) | payer OTHER, SELFPAY | PROVIDERS: Family Provider Urology; PCP Family Medicine; Referring Provider Family Medicine; Visit Provider Family Medicine | DX: E11.621 Type 2 diabetes mellitus with foot ulcer (principal); M21.6X2 Other acquired deformities of left foot; Z86.31 Personal history of diabetic foot ulcer | CPT/HCPCS: 99213 ==

== ENCOUNTER → 2020-11-17 13:19 | Outpatient (CLI) | payer OTHER, SELFPAY ==
[2020-11-17 13:44] LABS: Appearance Urine UA SL CLOUDY; Bilirubin Urine UA NEGATIVE (NEGATIVE); Color Urine UA YELLOW; Glucose Urine UA NEGATIVE (Negative); Ketones Urine UA NEGATIVE (NEGATIVE); Leukocyte Esterase Urine UA 3+ (NEGATIVE); Nitrite Urine UA POSITIVE (Negative); Occult Blood Urine UA TRACE-LYSED (Negative); Protein Urine UA NEGATIVE (Negative); Urobilinogen Urine UA 0.2 E.U./dL (0.2); pH Urine UA 6.5 (4.5-8.0)
[2020-11-17 14:07] LABS: Bacteria Urine Many (>30); Culture Indicated Urine Specimen Cultured; RBC Urine 1-5/HPF (0-5/HPF); Squamous Epithelial Cell Urine 1-5 /HPF (0-5/HPF); WBC Urine >100/HPF (0-5/HPF)
== END ==
PROVIDERS: Registered Nurse Diabetes Educator; Family Provider Urology; PCP Family Medicine; Referring Provider Family Medicine; Visit Provider Family Medicine
DX: N39.0 Urinary tract infection, site not specified (principal)
CPT/HCPCS: 81001; 87077; 87086; 87186

== ENCOUNTER → 2020-12-05 13:45 | Outpatient (CLI) | payer OTHER, SELFPAY | PROVIDERS: Family Provider Urology; PCP Family Medicine; Visit Provider Urology | DX: N40.1 Benign prostatic hyperplasia with lower urinary tract symptoms (principal); R30.0 Dysuria; N39.0 Urinary tract infection, site not specified; R35.0 Frequency of micturition; N13.8 Other obstructive and reflux uropathy; N50.0 Atrophy of testis; Z87.448 Personal history of other diseases of urinary system | CPT/HCPCS: 51798; 81002; 87086; 99215 ==

== ENCOUNTER → 2020-12-26 10:25 | Outpatient (CLI) | payer OTHER, SELFPAY ==
[2020-12-26 14:41] LABS: Appearance Urine UA SL CLOUDY; Bilirubin Urine UA NEGATIVE (NEGATIVE); Color Urine UA YELLOW; Glucose Urine UA TRACE g/dL (Negative); Ketones Urine UA NEGATIVE (NEGATIVE); Leukocyte Esterase Urine UA 3+ (NEGATIVE); Nitrite Urine UA POSITIVE (Negative); Occult Blood Urine UA 3+ (Negative); Protein Urine UA NEGATIVE (Negative); Specific Gravity Urine UA 1.015 (1.000-1.035); Urobilinogen Urine UA 0.2 E.U./dL (0.2)
[2020-12-26 14:46] LABS: Bacteria Urine Many (>30); Culture Indicated Urine Specimen Cultured; RBC Urine 5-10/HPF (0-5/HPF); WBC Urine 10-30/HPF (0-5/HPF)
== END ==
PROVIDERS: Family Provider Urology; PCP Family Medicine; Referring Provider Family Medicine; Visit Provider Family Medicine
DX: N39.0 Urinary tract infection, site not specified (principal); R35.0 Frequency of micturition
CPT/HCPCS: 81001; 87077; 87086; 87186

== ENCOUNTER → 2021-01-07 08:19 | Outpatient (CLI) | payer OTHER, SELFPAY ==
[2021-01-07 10:12] LABS: Alanine Aminotransferase 18 IU/L (<50); Albumin 3.8 g/dL (3.5-5.0); Albumin Globulin Ratio 1.2 (1.0-2.8); Alkaline Phosphatase 51 U/L (38-126); Aspartate Aminotransferase 31 IU/L (17-59); BUN Creatinine Ratio 19.1 (6-22); Bilirubin Total 0.8 mg/dL (0.2-1.3); Blood Urea Nitrogen 21 mg/dL (9-20); Calcium 9.8 mg/dL (8.4-10.2); Carbon Dioxide 24 mmol/L (22-32); Chloride 105 mmol/L (98-107); Estimated Glomerular Filt Rate > 60.0 mL/min (>60); Globulin 3.3 g/dL (1.7-4.1); Glucose 132 mg/dL (80-110); HEMOLYSIS 16 (0-50); Hemoglobin A1C% w Est Avg Glu 5.8 % (4.0-6.0); Potassium 4.8 mmol/L (3.4-5.1); Sodium 135 mmol/L (137-145); Total Protein 7.1 g/dL (6.3-8.2)
[2021-01-07 10:49] LABS: Appearance Urine UA CLEAR; Bilirubin Urine UA NEGATIVE (NEGATIVE); Color Urine UA YELLOW; Glucose Urine UA NEGATIVE (Negative); Ketones Urine UA NEGATIVE (NEGATIVE); Leukocyte Esterase Urine UA 1+ (NEGATIVE); Nitrite Urine UA NEGATIVE (Negative); Occult Blood Urine UA 1+ (Negative); Protein Urine UA NEGATIVE (Negative); Urobilinogen Urine UA 0.2 E.U./dL (0.2)
[2021-01-07 11:10] LABS: Bacteria Urine Few (2-10); Culture Indicated Urine Specimen Cultured; RBC Urine 1-5/HPF (0-5/HPF); Squamous Epithelial Cell Urine 1-5 /HPF (0-5/HPF); WBC Urine 1-5/HPF (0-5/HPF)
== END ==
PROVIDERS: Family Provider Urology; PCP Family Medicine; Referring Provider Family Medicine; Visit Provider Family Medicine
DX: N39.0 Urinary tract infection, site not specified (principal); E11.621 Type 2 diabetes mellitus with foot ulcer; E87.1 Hypo-osmolality and hyponatremia; I48.20 Chronic atrial fibrillation, unspecified; L97.509 Non-pressure chronic ulcer of other part of unspecified foot with unspecified severity
CPT/HCPCS: 80053; 81001; 83036; 87077; 87086; 87186

== ENCOUNTER → 2021-01-27 17:03 | Outpatient (CLI) | payer OTHER, SELFPAY ==
--- NOTE | 2021-01-27 17:05 | DI.RAD.S_ITS ---
PROCEDURE: XR TOE LT MIN 2V INDICATIONS: wound toe TECHNIQUE: 3 views of the 2nd toe(s) acquired. COMPARISON: [facility], , XR TOE LT MIN 2V, 07/16/2020, 14:33. FINDINGS: Marked irregularity and erosion of the 1st proximal interphalangeal joint remains unchanged from the prior exam. Second proximal middle phalanx is unremarkable. The distal phalanx appears held in flexion and is otherwise unremarkable. Overlying soft tissues are show mild soft tissue swelling. No radiopaque foreign body. IMPRESSION: Second toe soft tissue swelling without cortical erosion or fracture. First interphalangeal joint erosions, similar prior exam Approved by: Beau Diego M.D. on 01/27/2021 at 16:58
== END ==
PROVIDERS: Family Provider Urology; PCP Family Medicine; Referring Provider Family Medicine; Visit Provider Family Medicine
DX: M79.675 Pain in left toe(s) (principal); S99.922A Unspecified injury of left foot, initial encounter; M79.89 Other specified soft tissue disorders; X58.XXXA Exposure to other specified factors, initial encounter
CPT/HCPCS: 73660

== ENCOUNTER → 2021-02-08 14:49 | Outpatient (CLI) | payer OTHER, SELFPAY | PROVIDERS: Family Provider Urology; PCP Family Medicine; Referring Provider Family Medicine; Visit Provider Family Medicine | DX: E11.621 Type 2 diabetes mellitus with foot ulcer (principal); L97.521 Non-pressure chronic ulcer of other part of left foot limited to breakdown of skin; L84 Corns and callosities; M21.6X2 Other acquired deformities of left foot | CPT/HCPCS: 97597; 99213; 99214 ==

== ENCOUNTER → 2021-02-15 11:30 | Outpatient (CLI) | payer OTHER, SELFPAY | PROVIDERS: Family Provider Urology; PCP Family Medicine; Referring Provider Family Medicine; Visit Provider Family Medicine | DX: E11.621 Type 2 diabetes mellitus with foot ulcer (principal); L97.521 Non-pressure chronic ulcer of other part of left foot limited to breakdown of skin; E11.49 Type 2 diabetes mellitus with other diabetic neurological complication; M21.6X2 Other acquired deformities of left foot | CPT/HCPCS: 97597 ==

== ENCOUNTER → 2021-02-22 15:31 | Outpatient (CLI) | payer OTHER, SELFPAY | PROVIDERS: Family Provider Urology; PCP Family Medicine; Referring Provider Internal Medicine Cardiovascular Disease; Visit Provider Family Medicine | DX: E11.49 Type 2 diabetes mellitus with other diabetic neurological complication (principal); M21.6X2 Other acquired deformities of left foot | CPT/HCPCS: 99212; 99213 ==

== ENCOUNTER → 2021-07-31 11:39 | Outpatient (CLI) | payer OTHER, SELFPAY | PROVIDERS: Family Provider Urology; PCP Family Medicine; Visit Provider Student in an Organized Health Care Education/Training Program | DX: R30.0 Dysuria (principal) | CPT/HCPCS: 87077; 87086; 87186 ==

== ENCOUNTER → 2021-08-29 12:00 | Outpatient (CLI) | payer OTHER, SELFPAY ==
[2021-08-29 16:24] LABS: Alanine Aminotransferase 21 IU/L (<50); Albumin Globulin Ratio 1.3 (1.0-2.8); Alkaline Phosphatase 47 U/L (38-126); Aspartate Aminotransferase 38 IU/L (17-59); BUN Creatinine Ratio 18.2 (6-22); Bilirubin Total 0.9 mg/dL (0.2-1.3); Blood Urea Nitrogen 20 mg/dL (9-20); Calcium 9.7 mg/dL (8.4-10.2); Carbon Dioxide 22 mmol/L (22-32); Chloride 107 mmol/L (98-107); Estimated Glomerular Filt Rate > 60.0 mL/min (>60); Globulin 3.2 g/dL (1.7-4.1); Glucose 130 mg/dL (80-110); HEMOLYSIS < 15 (0-50); Potassium 4.5 mmol/L (3.4-5.1); Sodium 141 mmol/L (137-145); Total Protein 7.2 g/dL (6.3-8.2)
== END ==
PROVIDERS: Family Provider Urology; PCP Family Medicine; Referring Provider Internal Medicine Cardiovascular Disease; Visit Provider Internal Medicine Cardiovascular Disease
DX: I48.20 Chronic atrial fibrillation, unspecified (principal)
CPT/HCPCS: 36415; 80053

== ENCOUNTER 2021-09-15 21:02 | Inpatient (IN) | payer OTHER, SELFPAY ==
[2021-09-15] VITALS (8 sets, daily range): BP systolic 94–122; BP diastolic 57–85; PULSE 107–119; RESP 23–31; TEMP 37.6; O2SAT 93–98; BMI 34.9
--- NOTE | 2021-09-15 21:07 | ED.SEPSIS ---
HPI - Sepsis General Chief Complaint: Arrhythmia/Palpitations Evaluation Narrative: 86-year-old male nonsmoker with extensive medical history including hypertension, TIA, AFib on Pradaxa, AICD lives at home and presents by EMS for fever, shaking chills, shortness of breath and cough as well as generalized weakness seems to be rapidly progressing over the course of the day. He was recently seen and evaluated for urinary tract infection and started on Keflex, he has taken 1 dose thus far. EMS arrived to find him hypoxemic and put him on nasal cannula initially and a non-rebreather by the time of his arrival at 10 L. He denies any chest pain but is significantly short of breath lying flat or exerting himself. He is nauseated but denies any vomiting. He has no abdominal pain. He does admit to dysuria, frequency and urgency Review of Systems Review of Systems Narrative: GENERAL: See HPI HEENT: Denies sinus pain, ear pain, sore throat, difficulty swallowing, dizziness. RESPIRATORY: See HPI CARDIOVASCULAR: See HPI GASTROINTESTINAL: See HPI : See HPI MUSCULOSKELETAL: denies weakness, joint pain, or bony pain SKIN: Denies rash, skin lesions, or other NEUROLOGIC: Denies weakness, headache, numbness, change in speech, confusion, seizures, incoordination. PSYCHIATRIC: No concerning psychosocial issues. 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 Chronic UTI Coronary artery disease Diabetic foot ulcer Dysuria Foot fracture, right Foot ulcer History of hematuria Hyperlipidemia Hypertension Right shoulder pain Toe pain Type 2 diabetes mellitus Urinary frequency Wound of skin Surgical History AICD (automatic cardioverter/defibrillator) present Family History Mother Congestive heart failure Pneumonia Father Pneumonia Social History household members: spouse Smoking Status: Never smoker alcohol intake: former substance use type: marijuana Smoking Status: Never smoker alcohol intake frequency: other Substance Use Type: marijuana Exam Narrative Exam Narrative: GENERAL: [86 year old patient appears stated age. Well-developed patient, in moderate distress, ill appearing, increased work of breathing on non-rebreather HEAD: Atraumatic. Normocephalic. EYES: Pupils equal round and reactive. Extraocular motions intact. No scleral icterus. No injection or drainage. ENT: Nose without bleeding, purulent drainage. Throat without erythema, tonsillar hypertrophy or exudate. Airway patent. NECK: Trachea midline. Non tender CARDIOVASCULAR: Tachycardic and irregular rhythm without murmurs, gallops, or rubs. RESPIRATORY: Increased work of breathing with use of accessory muscles, crackles in bases and rhonchi throughout GASTROINTESTINAL: Abdomen soft, non-tender, nondistended. EXTREMITIES: No edema or joint tenderness. BACK: Nontender without deformity or crepitance. No flank tenderness. NEURO: AOx3. SKIN: No rash or erythema of visible areas Initial Vital Signs Initial Vital Signs: Vital Signs Pulse Rate 118 H 09/15/21 21:08 Respiratory Rate 31 H 09/15/21 21:08 Pulse Oximetry 98 09/15/21 21:08 Course Orders Ordered: ED Orders 09/15/21 21:00 Complete Blood Count AUTO DIFF Stat Comprehensive Metabolic Panel Stat D Dimer Stat Lactate (Lactic Acid) Stat NT-proBNP (BNP-Adult 18+) Stat Procalcitonin Stat Troponin & CK Cardiac Panel Stat 09/15/21 21:15 XR chest 1V Stat Sputum Culture Stat EKG-12 Lead Stat 09/15/21 21:27 Blood Culture Stat COVID19 -Nasal RAPID/Pre-Proc Stat 09/15/21 21:36 ABG [Arterial Blood Gas] Stat 09/15/21 22:11 BiPAP Ventilatory Support RT PROTOCOL 09/15/21 22:14 Respiratory Panel (Film Array) Stat 09/15/21 23:57 Urinalysis and Microscopic Stat Dabigatran (Dabigatran 75 Mg Capsule) 150 mg PO BID JACK Last Admin: 09/15/21 23:53 Dose: 150 mg Documented by: STAN Dextrose (Dextrose 50 % In Water 25 Gm/50 Ml Syringe) 25 gm IV PRN PRN; Protocol PRN Reason: Hypoglycemia Finasteride (Finasteride 5 Mg Tablet) 5 mg PO BEDTIME JACK Sodium Chloride (Normal Saline 0.9%) 1,000 mls @ 100 mls/hr IV CONT JACK Last Admin: 09/16/21 00:36 Dose: 100 mls/hr Documented by: STAN Ceftriaxone Sodium 1,000 mg/ (Sodium Chloride) 100 mls @ 200 mls/hr IV Q24H [facility] Insulin Human Lispro (Insulin Lispro 100 Unit/Ml 3ml Vial) 0 unit SUBCUT ACHS [facility]; Protocol Metoprolol Tartrate (Metoprolol Ir 50 Mg Tablet) 100 mg PO BID JACK Last Admin: 09/15/21 23:51 Dose: Not Given Documented by: STAN Naloxone HCl (Naloxone 0.4 Mg/Ml Vial) 0.2 mg IV Q2MIN PRN PRN Reason: Opiate Reversal Discontinued Medications Furosemide (Furosemide 40 Mg/4 Ml Vial) 40 mg IV NOW ONE Stop: 09/15/21 22:12 Last Admin: 09/15/21 22:22 Dose: 40 mg Documented by: STAN Sodium Chloride (Normal Saline 0.9%) 1,707 mls @ 569 mls/hr 30 ml/kg infuse over 3 hr (1707 ml) IV NOW ONE Stop: 09/16/21 00:14 Last Infusion: 09/16/21 00:37 Dose: 0 mls/hr Documented by: Admin: 09/15/21 21:46 Dose: 569 mls/hr Documented by: STAN Ceftriaxone Sodium 2,000 mg/ (Sodium Chloride) 100 mls @ 200 mls/hr IV NOW ONE Stop: 09/15/21 21:16 Last Infusion: 09/15/21 22:23 Dose: 0 mls/hr Documented by: Admin: 09/15/21 21:46 Dose: 200 mls/hr Documented by: STAN Tamsulosin HCl (Tamsulosin 0.4 Mg Capsule) 0.4 mg PO NOW ONE Stop: 09/15/21 23:37 Last Admin: 09/15/21 23:43 Dose: 0.4 mg Documented by: STAN Reevaluation(s) Reevaluation #1: Though patient arrived in what appeared to be significant respiratory distress he was quickly taken off the non-rebreather and did relatively well from a respiratory standpoint. He still feels quite ill in continues to be tachycardic. Vital Signs Vital signs: Vital Signs - 8 hr 09/15/21 21:08 09/15/21 21:12 04/29/22 21:30 Temperature 99.6 F Pulse Rate 118 H 107 H 110 H Respiratory Rate 31 H 24 Blood Pressure 122/85 Pulse Oximetry 98 98 94 09/15/21 22:00 09/15/21 22:30 09/15/21 23:00 Temperature Pulse Rate 111 H 119 H 119 H Respiratory Rate 26 H 27 H 25 H Blood Pressure Pulse Oximetry 93 96 93 09/15/21 23:05 Temperature Pulse Rate 117 H Respiratory Rate 24 Blood Pressure 94/57 L Pulse Oximetry 94 Sepsis Guideline Criteria Treatment Initiated Antibiotics:: IV antimicrobials will be initiated as soon as possible after recognition of sepsis state and within one hour for both sepsis and septic shock. MDM - Sepsis Lab Data Result diagrams: 09/15/21 21:00 09/15/21 21:00 Labs: Lab Results 09/15/21 09/15/21 09/15/21 Range/Units 21:00 21:00 21:00 WBC 10.9 (4.5-11.0) X10^3/uL RBC 4.93 (4.5-5.9) X10^6/uL Hgb 15.1 (13.5-17.5) g/dL Hct 44.9 (41-53) % MCV 91.1 (80-100) fL MCH 30.7 (26-34) PG MCHC 33.7 (30-36) % RDW 14.2 (11.6-14.8) % Plt Count 201 (150-400) X10^3/uL Neut % (Auto) 91.0 H (50-75) % Lymph % (Auto) 7.2 L (25-40) % [place] % (Auto) 1.3 L (3-14) % Eos % (Auto) 0.3 L (2-4) % Baso % (Auto) 0.2 (0-2) % Neut # (Auto) 9900 H (6218-6416) /uL Lymph # (Auto) 800 L (3983-2697) /uL [place] # (Auto) 100 (0-900) /uL Eos # (Auto) 0 (0-450) /uL Baso # (Auto) 0 (0-100) /uL D-Dimer 370 H (<230) ng/mL ABG pH (7.35-7.45) ABG pCO2 (35-45) mmHg ABG pO2 (80-100) mmHg ABG HCO3 (22-26) mmol/L ABG Total CO2 (21-31) mmol/L ABG O2 Saturation (95-100) % ABG Base Excess (-2-2) mmol/L FiO2 Sodium 137 (137-145) mmol/L Potassium 4.3 (3.4-5.1) mmol/L Chloride 104 (98-107) mmol/L Carbon Dioxide 18 L (22-32) mmol/L BUN 23 H (9-20) mg/dL Creatinine 1.25 (0.66-1.25) mg/dL Estimated GFR 56 L (>60) mL/min BUN/Creatinine Ratio 18.4 (6-22) Glucose 176 H (80-110) mg/dL Lactate (0.7-2.1) mmol/L Calcium 9.0 (8.4-10.2) mg/dL Total Bilirubin 2.5 H (0.2-1.3) mg/dL AST 35 (17-59) IU/L ALT 24 (<50) IU/L Alkaline Phosphatase 54 (38-126) U/L Total Creatine Kinase 43 L (55-170) U/L CK-MB (CK-2) TNP CK-MB (CK-2) Rel Index TNP Troponin I < 0.012 (0.01-0.034) ng/mL NT-Pro-B Natriuret Pep 1850 H (<450) pg/mL Total Protein 7.6 (6.3-8.2) g/dL Albumin 4.1 (3.5-5.0) g/dL Globulin 3.5 (1.7-4.1) g/dL Albumin/Globulin Ratio 1.2 (1.0-2.8) Procalcitonin 0.69 H (<0.5) ng/mL Chlamy pneumoniae PCR (Not Detect) Adenovirus (PCR) (Not Detect) B. pertussis DNA (PCR) (Not Detecte) B.parapertussis DNA PCR (Not Detecte) Coronavirus OC43 (PCR) (Not Detect) Coronavirus HKU1 (PCR) (Not Detect) Coronavirus 229E (PCR) (Not Detect) SARS-CoV-2 (PCR) (Negative) Coronavirus NL63 (PCR) (Not Detect) Human Metapneumovir PCR (Not Detect) Influenza Type A (PCR) (Not Detect) Influenza Type B (PCR) (Not Detect) M. pneumoniae (PCR) (Not Detect) Parainfluenza 1 (PCR) (Not Detect) Parainfluenza 2 (PCR) (Not Detect) Parainfluenza 3 (PCR) (Not Detect) Parainfluenza 4 (PCR) (Not Detect) RSV (PCR) (Not Detect) Entero/Rhino (PCR) (Not Detect) 09/15/21 09/15/21 09/15/21 Range/Units 21:00 21:27 21:36 WBC (4.5-11.0) X10^3/uL RBC (4.5-5.9) X10^6/uL Hgb (13.5-17.5) g/dL Hct (41-53) % MCV (80-100) fL MCH (26-34) PG MCHC (30-36) % RDW (11.6-14.8) % Plt Count (150-400) X10^3/uL Neut % (Auto) (50-75) % Lymph % (Auto) (25-40) % [place] % (Auto) (3-14) % Eos % (Auto) (2-4) % Baso % (Auto) (0-2) % Neut # (Auto) (6653-3599) /uL Lymph # (Auto) (8104-8524) /uL [place] # (Auto) (0-900) /uL Eos # (Auto) (0-450) /uL Baso # (Auto) (0-100) /uL D-Dimer (<230) ng/mL ABG pH 7.40 (7.35-7.45) ABG pCO2 28.0 L (35-45) mmHg ABG pO2 68 L (80-100) mmHg ABG HCO3 17 L (22-26) mmol/L ABG Total CO2 18 L (21-31) mmol/L ABG O2 Saturation 94 L (95-100) % ABG Base Excess -8.0 L (-2-2) mmol/L FiO2 21 Sodium (137-145) mmol/L Potassium (3.4-5.1) mmol/L Chloride (98-107) mmol/L Carbon Dioxide (22-32) mmol/L BUN (9-20) mg/dL Creatinine (0.66-1.25) mg/dL Estimated GFR (>60) mL/min BUN/Creatinine Ratio (6-22) Glucose (80-110) mg/dL Lactate 4.6 H* (0.7-2.1) mmol/L Calcium (8.4-10.2) mg/dL Total Bilirubin (0.2-1.3) mg/dL AST (17-59) IU/L ALT (<50) IU/L Alkaline Phosphatase (38-126) U/L Total Creatine Kinase (55-170) U/L CK-MB (CK-2) CK-MB (CK-2) Rel Index Troponin I (0.01-0.034) ng/mL NT-Pro-B Natriuret Pep (<450) pg/mL Total Protein (6.3-8.2) g/dL Albumin (3.5-5.0) g/dL Globulin (1.7-4.1) g/dL Albumin/Globulin Ratio (1.0-2.8) Procalcitonin (<0.5) ng/mL Chlamy pneumoniae PCR (Not Detect) Adenovirus (PCR) (Not Detect) B. pertussis DNA (PCR) (Not Detecte) B.parapertussis DNA PCR (Not Detecte) Coronavirus OC43 (PCR) (Not Detect) Coronavirus HKU1 (PCR) (Not Detect) Coronavirus 229E (PCR) (Not Detect) SARS-CoV-2 (PCR) Negative (Negative) Coronavirus NL63 (PCR) (Not Detect) Human Metapneumovir PCR (Not Detect) Influenza Type A (PCR) (Not Detect) Influenza Type B (PCR) (Not Detect) M. pneumoniae (PCR) (Not Detect) Parainfluenza 1 (PCR) (Not Detect) Parainfluenza 2 (PCR) (Not Detect) Parainfluenza 3 (PCR) (Not Detect) Parainfluenza 4 (PCR) (Not Detect) RSV (PCR) (Not Detect) Entero/Rhino (PCR) (Not Detect) 09/15/21 Range/Units 22:14 WBC (4.5-11.0) X10^3/uL RBC (4.5-5.9) X10^6/uL Hgb (13.5-17.5) g/dL Hct (41-53) % MCV (80-100) fL MCH (26-34) PG MCHC (30-36) % RDW (11.6-14.8) % Plt Count (150-400) X10^3/uL Neut % (Auto) (50-75) % Lymph % (Auto) (25-40) % [place] % (Auto) (3-14) % Eos % (Auto) (2-4) % Baso % (Auto) (0-2) % Neut # (Auto) (2540-1320) /uL Lymph # (Auto) (1916-3272) /uL [place] # (Auto) (0-900) /uL Eos # (Auto) (0-450) /uL Baso # (Auto) (0-100) /uL D-Dimer (<230) ng/mL ABG pH (7.35-7.45) ABG pCO2 (35-45) mmHg ABG pO2 (80-100) mmHg ABG HCO3 (22-26) mmol/L ABG Total CO2 (21-31) mmol/L ABG O2 Saturation (95-100) % ABG Base Excess (-2-2) mmol/L FiO2 Sodium (137-145) mmol/L Potassium (3.4-5.1) mmol/L Chloride (98-107) mmol/L Carbon Dioxide (22-32) mmol/L BUN (9-20) mg/dL Creatinine (0.66-1.25) mg/dL Estimated GFR (>60) mL/min BUN/Creatinine Ratio (6-22) Glucose (80-110) mg/dL Lactate (0.7-2.1) mmol/L Calcium (8.4-10.2) mg/dL Total Bilirubin (0.2-1.3) mg/dL AST (17-59) IU/L ALT (<50) IU/L Alkaline Phosphatase (38-126) U/L Total Creatine Kinase (55-170) U/L CK-MB (CK-2) CK-MB (CK-2) Rel Index Troponin I (0.01-0.034) ng/mL NT-Pro-B Natriuret Pep (<450) pg/mL Total Protein (6.3-8.2) g/dL Albumin (3.5-5.0) g/dL Globulin (1.7-4.1) g/dL Albumin/Globulin Ratio (1.0-2.8) Procalcitonin (<0.5) ng/mL Chlamy pneumoniae PCR Not detected (Not Detect) Adenovirus (PCR) Not detected (Not Detect) B. pertussis DNA (PCR) Not detected (Not Detecte) B.parapertussis DNA PCR Not detected (Not Detecte) Coronavirus OC43 (PCR) Not detected (Not Detect) Coronavirus HKU1 (PCR) Not detected (Not Detect) Coronavirus 229E (PCR) Not detected (Not Detect) SARS-CoV-2 (PCR) Not detected (Negative) Coronavirus NL63 (PCR) Not detected (Not Detect) Human Metapneumovir PCR Not detected (Not Detect) Influenza Type A (PCR) Not detected (Not Detect) Influenza Type B (PCR) Not detected (Not Detect) M. pneumoniae (PCR) Not detected (Not Detect) Parainfluenza 1 (PCR) Not detected (Not Detect) Parainfluenza 2 (PCR) Not detected (Not Detect) Parainfluenza 3 (PCR) Not detected (Not Detect) Parainfluenza 4 (PCR) Not detected (Not Detect) RSV (PCR) Not detected (Not Detect) Entero/Rhino (PCR) Not detected (Not Detect) MDM Narrative Medical decision making narrative: 86-year-old male presents with increasing weakness, chills and sepsis. Sepsis Guideline Compliance It is my opinion that the patient DOES in fact have a likely infectious etiology for meeting Sepsis Criteria. SIRS Criteria: [ 118] HR (2107:) [ 31] RR (2107) Criteria for Severe Sepsis: [ x] Lactate > 2 [ ] BP < 90 [ ] Creat > 2.0 [x ] T. Bili > 2.0 Time of Severe Sepsis / Septic Shock: [2100 ] Upon meeting sepsis criteria resuscitation according to Best Practice Statements and in accordance with this patient?s safety the following was initiated: Fluids: 30mL/kg of IV crystalloid fluid ordered to be given within the first 1 hour of meeting sepsis criteria. [ ] ABW used [x ] IBW used due to BMI > 30 Antibiotics: IV antimicrobials be initiated as soon as possible after recognition and within one hour for both sepsis and septic shock Discharge Plan Departure Patient Disposition: Admitted As Inpatient Clinical Impression: Severe sepsis, Acute UTI Admit Date/Time: 09/15/21 23:16 Admit Provider: Corby Betancur
--- NOTE | 2021-09-15 21:15 | DI.RAD.S_ITS ---
PROCEDURE: XR CHEST 1V INDICATIONS: sepsis TECHNIQUE: One view of the chest was acquired. COMPARISON: [facility], CR, XR CHEST 1V, 04/26/2020, 20:24. FINDINGS: Surgical changes and devices: Left-sided dual lead pacemaker. Overlying monitoring wires. Lungs and pleura: Upper lobes are hyperlucent. No acute consolidations or effusions. No pneumothorax. Mediastinum: Moderate cardiomegaly. No significant central venous congestion. Normal aortic contour. Bones and chest wall: No suspicious bony lesions. Overlying soft tissues appear unremarkable. IMPRESSION: 1. Moderate cardiomegaly without central vascular congestion. 2. No acute pulmonary parenchymal opacity. Dictated by: Fabiola Prakash M.D. on 09/15/2021 at 23:06 Approved by: Fabiola Prakash M.D. on 09/15/2021 at 23:07
[2021-09-15 21:26] LABS: Add Manual Diff / Slide Review NO; Basophils Absolute Auto 0 /uL (0-100); Basophils Percent Auto 0.2 % (0-2); Eosinophils Absolute Auto 0 /uL (0-450); Eosinophils Percent Auto 0.3 % (2-4); Hematocrit 44.9 % (41-53); Hemoglobin 15.1 g/dL (13.5-17.5); Lymphocytes Absolute Auto 800 /uL (1100-4500); Lymphocytes Percent Auto 7.2 % (25-40); Mean Corpuscular HGB Conc 33.7 % (30-36); Mean Corpuscular Hemoglobin 30.7 PG (26-34); Mean Corpuscular Volume 91.1 fL (80-100); Monocytes Absolute Auto 100 /uL (0-900); Monocytes Percent Auto 1.3 % (3-14); Neutrophils Absolute Auto 9900 /uL (1500-7000); Platelet Count 201 X10^3/uL (150-400); Red Blood Cell Count 4.93 X10^6/uL (4.5-5.9); Red Cell Distribution Width 14.2 % (11.6-14.8); White Blood Cell Count 10.9 X10^3/uL (4.5-11.0)
[2021-09-15 21:41] LABS: Alanine Aminotransferase 24 IU/L (<50); Albumin 4.1 g/dL (3.5-5.0); Albumin Globulin Ratio 1.2 (1.0-2.8); Alkaline Phosphatase 54 U/L (38-126); Aspartate Aminotransferase 35 IU/L (17-59); BUN Creatinine Ratio 18.4 (6-22); Bilirubin Total 2.5 mg/dL (0.2-1.3); Blood Urea Nitrogen 23 mg/dL (9-20); Carbon Dioxide 18 mmol/L (22-32); Chloride 104 mmol/L (98-107); Creatine Kinase 43 U/L (55-170); Estimated Glomerular Filt Rate 56 mL/min (>60); Globulin 3.5 g/dL (1.7-4.1); Glucose 176 mg/dL (80-110); HEMOLYSIS 25 (0-50); Potassium 4.3 mmol/L (3.4-5.1); Sodium 137 mmol/L (137-145); Total Protein 7.6 g/dL (6.3-8.2)
[2021-09-15 21:45] LABS: D Dimer 370 ng/mL (<230)
[2021-09-15] MEDS: SODIUM CHLORIDE 0.9% 569 ML IV (21:46)
[2021-09-15] MEDS: cefTRIAXone 2,000 MG in SODIUM CHLORIDE 0.9% 100 ML 200 ML IV (21:46)
[2021-09-15 21:53] LABS: NT-proBNP (BNP-Adult 18+) 1850 pg/mL (<450); Troponin I < 0.012 ng/mL (0.01-0.034)
[2021-09-15 21:56] LABS: COVID19 -Nasal RAPID Negative (Negative)
[2021-09-15 21:57] LABS: Procalcitonin 0.69 ng/mL (<0.5)
[2021-09-15 21:58] LABS: Lactate (Lactic Acid) 4.6 mmol/L (0.7-2.1)
[2021-09-15] MEDS: FUROSEMIDE 40 MG/4 ML VIAL IV (22:22)
[2021-09-15 22:41] LABS: PO2 ABG 68 mmHg (80-100)
[2021-09-15 22:42] LABS: Fractionated Inspired Oxygen 21; HCO3 ABG 17 mmol/L (22-26); Oxygen Saturation ABG 94 % (95-100); TCO2 ABG 18 mmol/L (21-31)
[2021-09-15 23:10] LABS: Adenovirus Not Detected (Not Detect); B. parapertussis Not Detected (Not Detecte); Bordetella pertussis Not Detected (Not Detecte); Chlamydophila pneumoniae Not Detected (Not Detect); Coronavirus 229E Not Detected (Not Detect); Coronavirus HKU1 Not Detected (Not Detect); Coronavirus NL 63 Not Detected (Not Detect); Coronavirus OC43 Not Detected (Not Detect); Human Metapneumovirus Not Detected (Not Detect); Human Rhinovirus/Enterovirus Not Detected (Not Detect); Influenza A Not Detected (Not Detect); Influenza B Not Detected (Not Detect); Mycoplasma pneumoniae Not Detected (Not Detect); Parainfluenza Virus 1 Not Detected (Not Detect); Parainfluenza Virus 2 Not Detected (Not Detect); Parainfluenza Virus 3 Not Detected (Not Detect); Parainfluenza Virus 4 Not Detected (Not Detect); Respiratory Syncytial Virus Not Detected (Not Detect); SARS- CoV-2 Not Detected (Not Detecte)
[2021-09-15 23:23] LABS: Reflexed Lactate in 2 Hours Y
--- NOTE | 2021-09-15 23:40 | P.HP_ITS ---
History of Present Illness History of Present Illness Date Patient Seen: 09/15/21 Time Patient Seen: 23:40 Chief complaint: UTI Narrative: This is an 86-year-old male with chronic atrial fibrillation, congestive heart failure, COPD, diabetes mellitus and recurrent urinary tract infections who presents with acute sepsis/urinary tract infection. He describes that when his shaking/rigors begin he usually takes a few doses of Keflex and the symptoms resolve. This time, 2 days ago that seemed to occur and then the symptoms came on stronger yesterday and did not let up. When he presented to the emergency department he appeared quite septic, needing 10 L of oxygen and was found to have a white count of 10.9 with a lactic acid level of 4.6. His urine is quite abnormal with 3+ blood, positive nitrates and 30-100 rbc's with 30-100 wbc's. He has not had a fever. With fluids, Lasix and antibiotics his oxygen need has dropped to 0 and his shaking has resolved. He tells me that he lives in [place] in his own home with his Phyllis Maier who is his backup decision maker. He does not recall the name of his new urologist. He is already on finasteride and tamsulosin for this problem. Patient History Medical History Atrial fibrillation, chronic 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 Chronic UTI Coronary artery disease Diabetic foot ulcer Dysuria Foot fracture, right Foot ulcer History of hematuria Hyperlipidemia Hypertension Right shoulder pain Toe pain Type 2 diabetes mellitus Urinary frequency Wound of skin Surgical History AICD (automatic cardioverter/defibrillator) present Family & Social History Family History Mother Congestive heart failure Pneumonia Father Pneumonia Social History: household members spouse Safety & Behavioral: Feels Safe in Current Yes Environment Been Physically Hurt or No Threatened By a Person Tobacco & Substance use: Smoking Status Never smoker alcohol intake former alcohol intake frequency other Substance Use Type marijuana Meds Home Medications and Allergies Home Medications Medication Instructions Recorded Confirmed Type hydrochlorothiazide 25 mg tablet 25 mg PO HS #90 tab 08/12/19 07/31/21 Rx metoprolol tartrate 100 mg tablet 100 mg PO BID tab 11/04/19 07/31/21 History losartan 25 mg tablet 25 mg PO BID #180 tab 11/04/20 07/31/21 Rx finasteride 5 mg tablet 5 mg PO BEDTIME #90 tab 12/05/20 07/31/21 Rx tamsulosin 0.4 mg capsule (Flomax) 0.4 mg PO QAM #90 cap 12/05/20 07/31/21 Rx blood sugar diagnostic (Blood #100 ea 12/23/20 07/31/21 Rx Glucose Test) spironolactone 25 mg tablet 25 mg PO QDAY #90 tab 05/16/21 07/31/21 Rx (Aldactone) dabigatran etexilate 150 mg See Rx Instructions .ROUTE 08/29/21 Rx capsule (Pradaxa) .COMPLEX #180 cap Allergies Allergy/AdvReac Type Severity Reaction Status Date / Time lisinopril [LISINOPRIL] AdvReac Mild DRY COUGH Verified 09/15/21 21:12 Review of Systems Review of Systems Narrative: He is alert and oriented x3. Positive for rigors, tremor and difficulty urinating Negative for fevers, sweating, chest pain, shortness a breath, abdominal pain, dysuria, hematuria, rashes, seizures, bleeding, sore throat and new allergies. Exam Vital Signs (past 8 hours): - 09/15/21 21:08 09/15/21 21:12 09/15/21 21:30 Temperature 99.6 F Pulse Rate 118 H 107 H 110 H Respiratory Rate 31 H 24 Blood Pressure 122/85 Pulse Oximetry 98 98 94 09/15/21 22:00 09/15/21 22:30 09/15/21 23:00 Temperature Pulse Rate 111 H 119 H 119 H Respiratory Rate 26 H 27 H 25 H Blood Pressure Pulse Oximetry 93 96 93 09/15/21 23:05 Temperature Pulse Rate 117 H Respiratory Rate 24 Blood Pressure 94/57 L Pulse Oximetry 94 Oxygen Delivery Method Non -Rebreather Oxygen Flow Rate 10 Narrative Exam Narrative: He is alert and oriented x3. No apparent distress Throat looks normal No lymph nodes are felt head, neck, supraclavicular area Is no thyromegaly Pupils are equally round and reactive to light and accommodation Extraocular muscles are intact Sclerae are pink and nonicteric There is no carotid bruits heard JVD is less than 6 cm Heart is regular rate and rhythm without murmur Lungs are clear to auscultation bilaterally new Abdomen is soft, bowel sounds positive, nontender, no organomegaly other than the enlarged bladder which after Berry catheter drainage of to 125 mL is no longer distended. Extremities have no ankle edema Skin has no rash Neurological exam: There is no tremor Cranial nerves 2-12 test intact Motor function is 4/5 throughout Objective Labs Result Diagrams: 09/15/21 21:00 09/15/21 21:00 Labs: Laboratory Results - last 24 hr 09/15/21 09/15/21 09/15/21 21:00 21:00 21:00 WBC 10.9 RBC 4.93 Hgb 15.1 Hct 44.9 MCV 91.1 MCH 30.7 MCHC 33.7 RDW 14.2 Plt Count 201 Neut % (Auto) 91.0 H Lymph % (Auto) 7.2 L [place] % (Auto) 1.3 L Eos % (Auto) 0.3 L Baso % (Auto) 0.2 Neut # (Auto) 9900 H Lymph # (Auto) 800 L [place] # (Auto) 100 Eos # (Auto) 0 Baso # (Auto) 0 D-Dimer 370 H ABG pH ABG pCO2 ABG pO2 ABG HCO3 ABG Total CO2 ABG O2 Saturation ABG Base Excess FiO2 Sodium 137 Potassium 4.3 Chloride 104 Carbon Dioxide 18 L BUN 23 H Creatinine 1.25 Estimated GFR 56 L BUN/Creatinine Ratio 18.4 Glucose 176 H Lactate Calcium 9.0 Total Bilirubin 2.5 H AST 35 ALT 24 Alkaline Phosphatase 54 Total Creatine Kinase 43 L CK-MB (CK-2) TNP CK-MB (CK-2) Rel Index TNP Troponin I < 0.012 NT-Pro-B Natriuret Pep 1850 H Total Protein 7.6 Albumin 4.1 Globulin 3.5 Albumin/Globulin Ratio 1.2 Procalcitonin 0.69 H Chlamy pneumoniae PCR Adenovirus (PCR) B. pertussis DNA (PCR) B.parapertussis DNA PCR Coronavirus OC43 (PCR) Coronavirus HKU1 (PCR) Coronavirus 229E (PCR) SARS-CoV-2 (PCR) Coronavirus NL63 (PCR) Human Metapneumovir PCR Influenza Type A (PCR) Influenza Type B (PCR) M. pneumoniae (PCR) Parainfluenza 1 (PCR) Parainfluenza 2 (PCR) Parainfluenza 3 (PCR) Parainfluenza 4 (PCR) RSV (PCR) Entero/Rhino (PCR) 09/15/21 09/15/21 09/15/21 21:00 21:27 21:36 WBC RBC Hgb Hct MCV MCH MCHC RDW Plt Count Neut % (Auto) Lymph % (Auto) [place] % (Auto) Eos % (Auto) Baso % (Auto) Neut # (Auto) Lymph # (Auto) [place] # (Auto) Eos # (Auto) Baso # (Auto) D-Dimer ABG pH 7.40 ABG pCO2 28.0 L ABG pO2 68 L ABG HCO3 17 L ABG Total CO2 18 L ABG O2 Saturation 94 L ABG Base Excess -8.0 L FiO2 21 Sodium Potassium Chloride Carbon Dioxide BUN Creatinine Estimated GFR BUN/Creatinine Ratio Glucose Lactate 4.6 H* Calcium Total Bilirubin AST ALT Alkaline Phosphatase Total Creatine Kinase CK-MB (CK-2) CK-MB (CK-2) Rel Index Troponin I NT-Pro-B Natriuret Pep Total Protein Albumin Globulin Albumin/Globulin Ratio Procalcitonin Chlamy pneumoniae PCR Adenovirus (PCR) B. pertussis DNA (PCR) B.parapertussis DNA PCR Coronavirus OC43 (PCR) Coronavirus HKU1 (PCR) Coronavirus 229E (PCR) SARS-CoV-2 (PCR) Negative Coronavirus NL63 (PCR) Human Metapneumovir PCR Influenza Type A (PCR) Influenza Type B (PCR) M. pneumoniae (PCR) Parainfluenza 1 (PCR) Parainfluenza 2 (PCR) Parainfluenza 3 (PCR) Parainfluenza 4 (PCR) RSV (PCR) Entero/Rhino (PCR) 09/15/21 22:14 WBC RBC Hgb Hct MCV MCH MCHC RDW Plt Count Neut % (Auto) Lymph % (Auto) [place] % (Auto) Eos % (Auto) Baso % (Auto) Neut # (Auto) Lymph # (Auto) [place] # (Auto) Eos # (Auto) Baso # (Auto) D-Dimer ABG pH ABG pCO2 ABG pO2 ABG HCO3 ABG Total CO2 ABG O2 Saturation ABG Base Excess FiO2 Sodium Potassium Chloride Carbon Dioxide BUN Creatinine Estimated GFR BUN/Creatinine Ratio Glucose Lactate Calcium Total Bilirubin AST ALT Alkaline Phosphatase Total Creatine Kinase CK-MB (CK-2) CK-MB (CK-2) Rel Index Troponin I NT-Pro-B Natriuret Pep Total Protein Albumin Globulin Albumin/Globulin Ratio Procalcitonin Chlamy pneumoniae PCR Not detected Adenovirus (PCR) Not detected B. pertussis DNA (PCR) Not detected B.parapertussis DNA PCR Not detected Coronavirus OC43 (PCR) Not detected Coronavirus HKU1 (PCR) Not detected Coronavirus 229E (PCR) Not detected SARS-CoV-2 (PCR) Not detected Coronavirus NL63 (PCR) Not detected Human Metapneumovir PCR Not detected Influenza Type A (PCR) Not detected Influenza Type B (PCR) Not detected M. pneumoniae (PCR) Not detected Parainfluenza 1 (PCR) Not detected Parainfluenza 2 (PCR) Not detected Parainfluenza 3 (PCR) Not detected Parainfluenza 4 (PCR) Not detected RSV (PCR) Not detected Entero/Rhino (PCR) Not detected Assessment & Plan Assessment and plan Plan Sepsis, present on admission. Active. Urinary Tract infection, present on admission. Active. Chronic Atrial Fibrillation, present on admission. Active. Congestive Heart Failure, present on admission. Active. BPH, present on admission. Chronic. Assessment & Plan narrative: This is an 86-year-old male with chronic atrial fibrillation, congestive heart failure, COPD and recurrent urinary tract infections who presents with acute sepsis/urinary tract infection. Sepsis without acute organ dysfunction, present on admission. Active. -ceftriaxone IV pending urine culture and blood culture results -Tamsulosin and finasteride for BPH/urinary obstruction -Berry catheter placed on admission in the ED with 825 mL urine output Urinary tract infection, present on admission. Active. -ceftriaxone IV pending urine culture results Urinary outlet obstruction -continue tamsulosin and finasteride -Berry catheter management Chronic atrial fibrillation, present on admission. Active. -continue Dabigatran -Holding Metoprolol for low blood pressure Congestive heart failure, present on admission. Active. -Holding Spironolactone, Losartan and HCTZ for low blood pressure Type 2 diabetes mellitus, present on admission. Chronic. -Follow blood sugars AC and HS Dabigatran for DVT prevention Time Spent With Patient Critical Care time: I spent a total of [] minutes of critical care time on this patient's care today; this time is exclusive of procedural time.
[2021-09-15] MEDS: TAMSULOSIN 0.4 MG CAPSULE PO (23:43)
--- NOTE | 2021-09-15 23:52 | PC.NURSE ---
Per Dr Betancur, held metoprolol for SBP of 97.
[2021-09-15] MEDS: DABIGATRAN 75 MG CAPSULE 150 MG PO (23:53)
[2021-09-16] VITALS (35 sets, daily range): BP systolic 97–125; BP diastolic 56–71; PULSE 77–123; RESP 13–47; TEMP 36.7–37; O2SAT 85–99; BMI 34.9
[2021-09-16 00:01] LABS: Lactate 2HR (Lactic Acid Rflx) 1.3 mmol/L (0.7-2.1)
[2021-09-16 00:02] LABS: Appearance Urine UA CLOUDY; Bilirubin Urine UA NEGATIVE (NEGATIVE); Color Urine UA YELLOW; Glucose Urine UA NEGATIVE (Negative); Ketones Urine UA NEGATIVE (NEGATIVE); Leukocyte Esterase Urine UA 3+ (NEGATIVE); Nitrite Urine UA POSITIVE (Negative); Occult Blood Urine UA 3+ (Negative); Protein Urine UA NEGATIVE (Negative); Urobilinogen Urine UA 0.2 E.U./dL (0.2)
[2021-09-16 00:10] LABS: Bacteria Urine Moderate (10-30); RBC Urine 30-100/HPF (0-5/HPF); Squamous Epithelial Cell Urine 1-5 /HPF (0-5/HPF); WBC Urine 30-100/HPF (0-5/HPF)
[2021-09-16 00:11] LABS: Culture Indicated Urine Specimen Cultured; Transitional Epi Cells Urine 0-1/HPF (0-5/HPF)
[2021-09-16] MEDS: SODIUM CHLORIDE 0.9% 1,000 ML 100 ML IV ×2 (00:36→16:41)
[2021-09-16 05:16] LABS: Add Manual Diff / Slide Review NO; Basophils Absolute Auto 0 /uL (0-100); Basophils Percent Auto 0.2 % (0-2); Eosinophils Absolute Auto 0 /uL (0-450); Hematocrit 39.2 % (41-53); Hemoglobin 13.1 g/dL (13.5-17.5); Lymphocytes Absolute Auto 400 /uL (1100-4500); Lymphocytes Percent Auto 2.7 % (25-40); Mean Corpuscular HGB Conc 33.4 % (30-36); Mean Corpuscular Hemoglobin 30.5 PG (26-34); Mean Corpuscular Volume 91.4 fL (80-100); Monocytes Absolute Auto 700 /uL (0-900); Monocytes Percent Auto 5.1 % (3-14); Neutrophils Absolute Auto 12900 /uL (1500-7000); Platelet Count 173 X10^3/uL (150-400); Red Blood Cell Count 4.29 X10^6/uL (4.5-5.9); Red Cell Distribution Width 14.5 % (11.6-14.8)
[2021-09-16 05:17] LABS: Lactate (Lactic Acid) 1.4 mmol/L (0.7-2.1)
[2021-09-16 05:19] LABS: BUN Creatinine Ratio 19.4 (6-22); Blood Urea Nitrogen 21 mg/dL (9-20); Calcium 8.2 mg/dL (8.4-10.2); Carbon Dioxide 21 mmol/L (22-32); Chloride 109 mmol/L (98-107); Estimated Glomerular Filt Rate > 60 mL/min (>60); Glucose 139 mg/dL (80-110); HEMOLYSIS < 15 (0-50); Potassium 3.4 mmol/L (3.4-5.1); Sodium 138 mmol/L (137-145)
--- NOTE | 2021-09-16 07:21 | P.PN_ITS ---
Subjective Subjective Date Patient Seen: 09/16/21 Interval history: He is seen today to follow-up his cystitis and probable urosepsis. The urine culture and blood cultures are still pending. The white blood count has risen from 10.9 up to 14. He tells me that his urologist is Dr. Fowler. His BMP is normal. He is pending a CT KUB. He feels a lot better with rigors now resolved. Exam Vital Signs (past 8 hours): - 09/15/21 23:30 09/16/21 00:00 09/16/21 00:30 Pulse Rate 117 H 120 H 120 H Respiratory Rate 23 24 26 H Blood Pressure 97/63 109/68 119/71 Pulse Oximetry 96 95 95 09/16/21 01:00 09/16/21 01:01 09/16/21 01:30 Pulse Rate 123 H 118 H 107 H Respiratory Rate 30 H 19 18 Blood Pressure 97/56 L Pulse Oximetry 93 95 95 09/16/21 01:31 09/16/21 01:32 09/16/21 01:36 Pulse Rate 108 H 105 H 110 H Respiratory Rate 17 20 19 Blood Pressure 110/61 Pulse Oximetry 94 94 95 09/16/21 02:00 09/16/21 02:30 Pulse Rate 105 H 106 H Respiratory Rate 17 17 Blood Pressure 105/58 L Pulse Oximetry 95 97 Oxygen Delivery Method Room Air Oxygen Flow Rate 10 Narrative Exam Narrative: He is alert and oriented x3 and in no apparent distress Heart is regular rate and rhythm without murmur Lungs are clear to auscultation bilaterally Abdomen is soft and nontender Extremities have no ankle edema. Objective Labs Result Diagrams: 09/16/21 04:44 09/16/21 04:44 Labs: Laboratory Results - last 24 hr 09/15/21 09/15/21 09/15/21 21:00 21:00 21:00 WBC 10.9 RBC 4.93 Hgb 15.1 Hct 44.9 MCV 91.1 MCH 30.7 MCHC 33.7 RDW 14.2 Plt Count 201 Neut % (Auto) 91.0 H Lymph % (Auto) 7.2 L [place] % (Auto) 1.3 L Eos % (Auto) 0.3 L Baso % (Auto) 0.2 Neut # (Auto) 9900 H Lymph # (Auto) 800 L [place] # (Auto) 100 Eos # (Auto) 0 Baso # (Auto) 0 D-Dimer 370 H ABG pH ABG pCO2 ABG pO2 ABG HCO3 ABG Total CO2 ABG O2 Saturation ABG Base Excess FiO2 Sodium 137 Potassium 4.3 Chloride 104 Carbon Dioxide 18 L BUN 23 H Creatinine 1.25 Estimated GFR 56 L BUN/Creatinine Ratio 18.4 Glucose 176 H Lactate Calcium 9.0 Total Bilirubin 2.5 H AST 35 ALT 24 Alkaline Phosphatase 54 Total Creatine Kinase 43 L CK-MB (CK-2) TNP CK-MB (CK-2) Rel Index TNP Troponin I < 0.012 NT-Pro-B Natriuret Pep 1850 H Total Protein 7.6 Albumin 4.1 Globulin 3.5 Albumin/Globulin Ratio 1.2 Procalcitonin 0.69 H Urine Color Urine Appearance Urine pH Ur Specific [place] Urine Protein Urine Glucose (UA) Urine Ketones Urine Occult Blood Urine Nitrate Urine Bilirubin Urine Urobilinogen Ur Leukocyte Esterase Urine RBC Urine WBC Ur Squamous Epith Cells Ur Transition Epith Cell Urine Bacteria Ur Culture Indicated? Chlamy pneumoniae PCR Adenovirus (PCR) B. pertussis DNA (PCR) B.parapertussis DNA PCR Coronavirus OC43 (PCR) Coronavirus HKU1 (PCR) Coronavirus 229E (PCR) SARS-CoV-2 (PCR) Coronavirus NL63 (PCR) Human Metapneumovir PCR Influenza Type A (PCR) Influenza Type B (PCR) M. pneumoniae (PCR) Parainfluenza 1 (PCR) Parainfluenza 2 (PCR) Parainfluenza 3 (PCR) Parainfluenza 4 (PCR) RSV (PCR) Entero/Rhino (PCR) 09/15/21 09/15/21 09/15/21 21:00 21:27 21:36 WBC RBC Hgb Hct MCV MCH MCHC RDW Plt Count Neut % (Auto) Lymph % (Auto) [place] % (Auto) Eos % (Auto) Baso % (Auto) Neut # (Auto) Lymph # (Auto) [place] # (Auto) Eos # (Auto) Baso # (Auto) D-Dimer ABG pH 7.40 ABG pCO2 28.0 L ABG pO2 68 L ABG HCO3 17 L ABG Total CO2 18 L ABG O2 Saturation 94 L ABG Base Excess -8.0 L FiO2 21 Sodium Potassium Chloride Carbon Dioxide BUN Creatinine Estimated GFR BUN/Creatinine Ratio Glucose Lactate 4.6 H* Calcium Total Bilirubin AST ALT Alkaline Phosphatase Total Creatine Kinase CK-MB (CK-2) CK-MB (CK-2) Rel Index Troponin I NT-Pro-B Natriuret Pep Total Protein Albumin Globulin Albumin/Globulin Ratio Procalcitonin Urine Color Urine Appearance Urine pH Ur Specific [place] Urine Protein Urine Glucose (UA) Urine Ketones Urine Occult Blood Urine Nitrate Urine Bilirubin Urine Urobilinogen Ur Leukocyte Esterase Urine RBC Urine WBC Ur Squamous Epith Cells Ur Transition Epith Cell Urine Bacteria Ur Culture Indicated? Chlamy pneumoniae PCR Adenovirus (PCR) B. pertussis DNA (PCR) B.parapertussis DNA PCR Coronavirus OC43 (PCR) Coronavirus HKU1 (PCR) Coronavirus 229E (PCR) SARS-CoV-2 (PCR) Negative Coronavirus NL63 (PCR) Human Metapneumovir PCR Influenza Type A (PCR) Influenza Type B (PCR) M. pneumoniae (PCR) Parainfluenza 1 (PCR) Parainfluenza 2 (PCR) Parainfluenza 3 (PCR) Parainfluenza 4 (PCR) RSV (PCR) Entero/Rhino (PCR) 09/15/21 09/15/21 09/15/21 22:14 23:35 23:57 WBC RBC Hgb Hct MCV MCH MCHC RDW Plt Count Neut % (Auto) Lymph % (Auto) [place] % (Auto) Eos % (Auto) Baso % (Auto) Neut # (Auto) Lymph # (Auto) [place] # (Auto) Eos # (Auto) Baso # (Auto) D-Dimer ABG pH ABG pCO2 ABG pO2 ABG HCO3 ABG Total CO2 ABG O2 Saturation ABG Base Excess FiO2 Sodium Potassium Chloride Carbon Dioxide BUN Creatinine Estimated GFR BUN/Creatinine Ratio Glucose Lactate 1.3 Calcium Total Bilirubin AST ALT Alkaline Phosphatase Total Creatine Kinase CK-MB (CK-2) CK-MB (CK-2) Rel Index Troponin I NT-Pro-B Natriuret Pep Total Protein Albumin Globulin Albumin/Globulin Ratio Procalcitonin Urine Color Yellow Urine Appearance Cloudy Urine pH 5.0 Ur Specific [place] 1.010 Urine Protein Negative Urine Glucose (UA) Negative Urine Ketones Negative Urine Occult Blood 3+ H Urine Nitrate Positive H Urine Bilirubin Negative Urine Urobilinogen 0.2 Ur Leukocyte Esterase 3+ H Urine RBC 30-100/hpf H Urine WBC 30-100/hpf H Ur Squamous Epith Cells 1-5 /hpf Ur Transition Epith Cell 0-1/hpf Urine Bacteria Moderate (10-30) H Ur Culture Indicated? Specimen cultured Chlamy pneumoniae PCR Not detected Adenovirus (PCR) Not detected B. pertussis DNA (PCR) Not detected B.parapertussis DNA PCR Not detected Coronavirus OC43 (PCR) Not detected Coronavirus HKU1 (PCR) Not detected Coronavirus 229E (PCR) Not detected SARS-CoV-2 (PCR) Not detected Coronavirus NL63 (PCR) Not detected Human Metapneumovir PCR Not detected Influenza Type A (PCR) Not detected Influenza Type B (PCR) Not detected M. pneumoniae (PCR) Not detected Parainfluenza 1 (PCR) Not detected Parainfluenza 2 (PCR) Not detected Parainfluenza 3 (PCR) Not detected Parainfluenza 4 (PCR) Not detected RSV (PCR) Not detected Entero/Rhino (PCR) Not detected 09/16/21 09/16/21 09/16/21 04:44 04:44 04:44 WBC 14.0 H RBC 4.29 L Hgb 13.1 L Hct 39.2 L MCV 91.4 MCH 30.5 MCHC 33.4 RDW 14.5 Plt Count 173 Neut % (Auto) 92.0 H Lymph % (Auto) 2.7 L [place] % (Auto) 5.1 Eos % (Auto) 0.0 L Baso % (Auto) 0.2 Neut # (Auto) 63395 H Lymph # (Auto) 400 L [place] # (Auto) 700 Eos # (Auto) 0 Baso # (Auto) 0 D-Dimer ABG pH ABG pCO2 ABG pO2 ABG HCO3 ABG Total CO2 ABG O2 Saturation ABG Base Excess FiO2 Sodium 138 Potassium 3.4 Chloride 109 H Carbon Dioxide 21 L BUN 21 H Creatinine 1.08 Estimated GFR > 60 BUN/Creatinine Ratio 19.4 Glucose 139 H Lactate 1.4 Calcium 8.2 L Total Bilirubin AST ALT Alkaline Phosphatase Total Creatine Kinase CK-MB (CK-2) CK-MB (CK-2) Rel Index Troponin I NT-Pro-B Natriuret Pep Total Protein Albumin Globulin Albumin/Globulin Ratio Procalcitonin Urine Color Urine Appearance Urine pH Ur Specific [place] Urine Protein Urine Glucose (UA) Urine Ketones Urine Occult Blood Urine Nitrate Urine Bilirubin Urine Urobilinogen Ur Leukocyte Esterase Urine RBC Urine WBC Ur Squamous Epith Cells Ur Transition Epith Cell Urine Bacteria Ur Culture Indicated? Chlamy pneumoniae PCR Adenovirus (PCR) B. pertussis DNA (PCR) B.parapertussis DNA PCR Coronavirus OC43 (PCR) Coronavirus HKU1 (PCR) Coronavirus 229E (PCR) SARS-CoV-2 (PCR) Coronavirus NL63 (PCR) Human Metapneumovir PCR Influenza Type A (PCR) Influenza Type B (PCR) M. pneumoniae (PCR) Parainfluenza 1 (PCR) Parainfluenza 2 (PCR) Parainfluenza 3 (PCR) Parainfluenza 4 (PCR) RSV (PCR) Entero/Rhino (PCR) PFSH Medical History Atrial fibrillation, chronic 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 Chronic UTI Coronary artery disease Diabetic foot ulcer Dysuria Foot fracture, right Foot ulcer History of hematuria Hyperlipidemia Hypertension Right shoulder pain Toe pain Type 2 diabetes mellitus Urinary frequency Wound of skin Surgical History AICD (automatic cardioverter/defibrillator) present Family History Mother Congestive heart failure Pneumonia Father Pneumonia Social History household members: spouse Smoking Status: Never smoker alcohol intake: former substance use type: marijuana Assessment & Plan Assessment & Plan narrative: This is an 86-year-old male with chronic atrial fibrillation, congestive heart f ailure, COPD and recurrent urinary tract infections who presents with acute sepsis/urinary tract infection. Sepsis without acute organ dysfunction, present on admission.? Active.? -ceftriaxone IV pending urine culture and blood culture results -lactate dropped very quickly from 4.6 down to 1.3 with initial IV hydration in the ED. -Tamsulosin and finasteride for BPH/urinary obstruction -Berry catheter placed on admission in the ED with 825 mL urine output -CT KUB pending, rule out pyelonephritis/ureteral obstruction Urinary tract infection, present on admission.? Active.? -ceftriaxone IV pending urine culture results Urinary outlet obstruction -continue tamsulosin and finasteride -Berry catheter management Chronic atrial fibrillation, present on admission.? Active.? -continue Dabigatran -Holding Metoprolol for low blood pressure Congestive heart failure, present on admission.? Active.? -Holding Spironolactone, Losartan and HCTZ for low blood pressure Type 2 diabetes mellitus, present on admission.? Chronic.? -Follow blood sugars AC and HS Dabigatran for DVT prevention Time Spent With Patient Critical Care time: I spent a total of [] minutes of critical care time on this patient's care today; this time is exclusive of procedural time.
[2021-09-16] MEDS: DABIGATRAN 75 MG CAPSULE 150 MG PO ×2 (09:54→20:59)
[2021-09-16] MEDS: METOPROLOL IR 50 MG TABLET 100 MG PO ×2 (09:54→21:00)
--- NOTE | 2021-09-16 09:56 | PC.NURSE ---
Pt declined breakfast and refused the Humalog medication. Pt states he is DMII but does not take diabetic medications. He prefers to allow his body to heal itself.
--- NOTE | 2021-09-16 12:09 | PC.NURSE ---
1100: Rec'd report on pt. Pt currently resting in stretcher eyes closed. attached to cardiac monitoring and appears comfortable with equal chest rise and fall. 1210: Pt given lunch tray. Per previous RN pt refusing to eat however pt is eating some cooked carrots. declining his insulin. NAD. reports needs met at this time.
--- NOTE | 2021-09-16 17:18 | DI.CT.S_ITS ---
PROCEDURE: CT KIDNEY URETER BLADDER (KUB) INDICATIONS: Pyelonephritis TECHNIQUE: Axial sections were acquired from the lung bases to the pubic symphysis. Coronal and sagittal reformats were performed. For radiation dose reduction, the following was used: automated exposure control, adjustment of mA and/or kV according to patient size. COMPARISON: None. FINDINGS: Image quality: Excellent. Lung bases: Unremarkable. Heart: Heart is enlarged. URINARY: Right Kidney: Renal atrophy is present. No stones or obstruction. Right Ureter: No hydroureter. Left Kidney: Renal atrophy is present. No stones or obstruction. Left Ureter: No hydroureter. Bladder: Bladder is collapsed with a Berry catheter, limiting evaluation. The prostate gland is prominently enlarged with calcifications. ABDOMEN: Liver: Hepatic steatosis is present. Gallbladder: Gallstone is noted without wall thickening. Biliary ducts: Unremarkable. Pancreas: Unremarkable. Spleen: Unremarkable. Adrenal Glands: Unremarkable. Stomach and Bowel: Stomach, small bowel loops, and colon are unremarkable. Prominent colonic diverticula are present. There is no associated inflammatory change. Peritoneum: No abnormal intraperitoneal fluid. No free air. Ventral Wall: Fat containing ventral hernia is present. Abdominal Nodes: No enlarged retroperitoneal or mesenteric lymph nodes. Vessels: Aorta and inferior vena cava are normal in size. PELVIS: Pelvic Organs: Unremarkable. Pelvic Nodes: Unremarkable. Miscellaneous: Fat containing inguinal hernias are present. Bones: Unremarkable. IMPRESSION: No renal, ureteral or bladder calculi. Prostate hypertrophy is present with calcifications. Recommend correlation to PSA levels. Diverticulosis without associated inflammatory change. Cholelithiasis without imaging evidence of cholecystitis. Dictated by: Franchesca Penaloza M.D. on 09/16/2021 at 18:17 Approved by: Franchesca Penaloza M.D. on 09/16/2021 at 18:20
[2021-09-16] MEDS: FINASTERIDE 5 MG TABLET PO (21:00)
[2021-09-16] MEDS: cefTRIAXone 1,000 MG in SODIUM CHLORIDE 0.9% 100 ML 200 ML IV ×2 (21:00→23:56)
[2021-09-16 22:04] LABS: Acinetobacter baumannii Not Detected (Not Detect); E. coli Detected (Not Detect); Enterobacteriaceae species Detected (Not Detect); Enterococcus species Not Detected (Not Detect); KPC (carbapenem-resist gene) Not Detected (Not Detect); Listeria monocytogenes Not Detected (Not Detect); Staphylococcus species Not Detected (Not Detect); Streptococcus agalactiae (Gr B Not Detected (Not Detect); Streptococcus pneumonia Not Detected (Not Detect); Streptococcus pyogenes (Gr A) Not Detected (Not Detect); Streptococcus species Not Detected (Not Detect)
[2021-09-16 22:05] LABS: Candida albicans Not Detected (Not Detect); Candida glabrata Not Detected (Not Detect); Candida krusei Not Detected (Not Detect); Candida parapsilosis Not Detected (Not Detect); Candida tropicalis Not Detected (Not Detect); Enterobacter cloacae complex Not Detected (Not Detect); Haemophilus influenzae Not Detected (Not Detect); Neisseria meningitidis Not Detected (Not Detect); Proteus species Not Detected (Not Detect); Pseudomonas aeruginosa Not Detected (Not Detect); Serratia marcescens Not Detected (Not Detect)
[2021-09-17] VITALS (7 sets, daily range): BP systolic 106–157; BP diastolic 56–99; PULSE 80–95; RESP 14–19; TEMP 36.2–36.9; O2SAT 96–98
[2021-09-17] MEDS: SODIUM CHLORIDE 0.9% 1,000 ML 100 ML IV ×2 (06:07→16:53)
[2021-09-17] MEDS: DABIGATRAN 75 MG CAPSULE 150 MG PO ×2 (08:20→21:22)
[2021-09-17] MEDS: METOPROLOL IR 50 MG TABLET 100 MG PO ×2 (08:20→21:22)
--- NOTE | 2021-09-17 08:37 | CM.DANOTE ---
DCP: Case received, EMR reviewed and met with patient. Introduced self and role. Was able to obtain information regarding patient's baseline activity level prior to admission. DCP assessment completed with information currently available. Patient is an 86 year old male who admitted on 09/15 to the care of the hospitalist team. PCP: Dr. Fairchild. Payer: confirmed: [facility] [employer]. Patient came to the hospital via ambulance secondary to fever, as well as shortness of breath. Patient had been seen by his provider recently with UTI. Patient has history of atrial fibrillation, CHF, COPD, Diabetes, and urinary tract infections. Patient holds diagnosis of acute sepsis/urinary tract infection. Upon admission to ER, patient had needed 10 liters of oxygen. He does have a urologist that he sees. He now has a peña. Met briefly with patient. He is alert and oriented, he was sitting up in bed. Confirmed that patient resides in [place] with his spouse, Nayla Maier. He is independent regarding his mobility, but does use a cane outside when he is walking. P: DCP to continue to follow for any needs. Patient should be able to go home when he is deemed medically stable, but uncertain if he will go home with peña, and how long he will need IV ABO. Soheila Menchaca RN/Information Scientist Discharge Planning/Care Management CM Discharge Assessment Start: 09/17/21 08:33 Freq: Status: Active Protocol: Document 09/17/21 08:33 (Rec: 09/17/21 08:37 [id number]) Discharge Planning Assessment Assigned Crisis Counselor Soheila Menchaca RN/Information Scientist Advance Directives? No Advance Directives on File No History Provided By Patient,Medical Record Prior Living Arrangements House Household Members spouse Type of transporation used prior to Drives own vehicle admit Independent with ADL's Yes Is patient alert and oriented? Yes DME Already Rented / Owned Cane Comment usually walks with a cane for long distances. Barriers to Discharge No Discharge Plan Home Transportation Arrangement Spouse Referrals Initiated None needed Whiteboard Updated in Patient Room with Yes name and ext. # of Crisis Counselor Review Status In Process Next Review Type Continued Stay Review
--- NOTE | 2021-09-17 15:49 | PM.PN.1 ---
Subjective Subjective Date Patient Seen: 09/17/21 Interval history: He feels well today. No fevers/chills. No dysuria. He did have positive blood cultures with final results pending. Exam Vital Signs (past 8 hours): - 09/17/21 08:00 09/17/21 11:21 09/17/21 12:00 Temperature 98.3 F 98.4 F Pulse Rate 91 H 83 Respiratory Rate 17 17 Blood Pressure 157/99 H 132/76 Pulse Oximetry 96 97 Oxygen Delivery Method Room Air Oxygen Flow Rate 0 Narrative Exam Narrative: GEN: no acute distress CV: regular rate and rhythm, no murmurs PULM: clear bilaterally ABD: soft, nontender, nondistended, no organomegaly EXT: warm and well perfused with no edema Objective Labs Result Diagrams: 09/16/21 04:44 09/16/21 04:44 Labs: Laboratory Results - last 24 hr 09/16/21 21:27 A. baumannii (PCR) Not detected Rajani albicans (PCR) Not detected C. glabrata (PCR) Not detected C. krusei (PCR) Not detected C. parapsilosis (PCR) Not detected C. tropicalis (PCR) Not detected Enterobacteriac sp PCR Detected H E. cloacae complex PCR Not detected Enterococcus sp PCR Not detected E. coli (PCR) Detected H H. influenzae (PCR) Not detected Klebsiella oxytoca PCR Not detected Klebsiella pneumoniae Not detected List. monocytogenes PCR Not detected N. meningitidis (PCR) Not detected Proteus species (PCR) Not detected Serratia marcescens PCR Not detected Staphylococcus sp PCR Not detected Staph aureus (PCR) Not detected mecA-Methicil Res Gene Not Reportable Streptococcus sp PCR Not detected Group A Strep (PCR) Not detected Strep agalactiae (PCR) Not detected Strep pneumoniae (PCR) Not detected P. 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 UTI with bacteremia -continue with IV antibiotics with IV ceftriaxone -final cultures pending -likely secondary to urinary obstruction given urinary retention -keep peña in place -CT shows no evidence of obstruction 2. Urinary obstruction, urinary retention -continue flomax, finasteride, continue peña 3. Chronic afib -continue dabigatran -reconsider metoprolol 4. History of CHF, preserved EF -hold spironolactone, losartan, hctz -possibly restart tomorrow 5. Type 2 Diabetes -continue insulin sliding scale Time Spent With Patient Critical Care time: I spent a total of [] minutes of critical care time on this patient's care today; this time is exclusive of procedural time. Quality VTE Deep Vein Thrombosis/Pulmonary Embolism Present on Admission: No
--- NOTE | 2021-09-17 18:08 | PC.NURSE ---
Pt is AXOx4, SBA but I did not see him get OOB. Pt has peña and it is draining yellow color urine. No c/o pain. Pt has NS is running 100ml/hr. Tele is d/c d this afternoon. BG is tend to run lower 68 this morning and pt was offered snack. 101/99 rest of the afternoon. No other changes.
[2021-09-17] MEDS: cefTRIAXone 2,000 MG in SODIUM CHLORIDE 0.9% 100 ML 200 ML IV (21:22)
[2021-09-17] MEDS: FINASTERIDE 5 MG TABLET PO (21:22)
[2021-09-18] VITALS (7 sets, daily range): BP systolic 136–150; BP diastolic 76–106; PULSE 81–99; RESP 14–21; TEMP 36.3–37; O2SAT 94–98
[2021-09-18] MEDS: SODIUM CHLORIDE 0.9% 1,000 ML 100 ML IV (01:03)
[2021-09-18 05:36] LABS: Hemoglobin 12.8 g/dL (13.5-17.5); Mean Corpuscular HGB Conc 34.5 % (30-36); Mean Corpuscular Hemoglobin 31.2 PG (26-34); Mean Corpuscular Volume 90.4 fL (80-100); Platelet Count 158 X10^3/uL (150-400); Red Blood Cell Count 4.09 X10^6/uL (4.5-5.9); Red Cell Distribution Width 14.3 % (11.6-14.8); White Blood Cell Count 8.6 X10^3/uL (4.5-11.0)
[2021-09-18] MEDS: DABIGATRAN 75 MG CAPSULE 150 MG PO ×2 (08:22→21:12)
[2021-09-18] MEDS: METOPROLOL IR 50 MG TABLET 100 MG PO ×2 (08:22→21:12)
--- NOTE | 2021-09-18 15:43 | PM.PN.1 ---
Subjective Subjective Date Patient Seen: 09/18/21 Time Patient Seen: 08:00 Interval history: He feels well today. No fevers/chills. No pain. Exam Vital Signs (past 8 hours): - 09/18/21 08:00 09/18/21 12:00 Temperature 98.6 F 98.4 F Pulse Rate 99 H 86 Respiratory Rate 17 21 Blood Pressure 148/106 H 138/93 H Pulse Oximetry 94 94 Oxygen Delivery Method Room Air Oxygen Flow Rate 0 Narrative Exam Narrative: GEN: no acute distress CV: regular rate and rhythm, no murmurs PULM: clear bilaterally ABD: soft, nontender, nondistended, no organomegaly EXT: warm and well perfused with no edema Objective Labs Result Diagrams: 09/18/21 05:09/16/21 04:44 Labs: Laboratory Results - last 24 hr 09/18/21 05:22 WBC 8.6 RBC 4.09 L Hgb 12.8 L Hct 37.0 L MCV 90.4 MCH 31.2 MCHC 34.5 RDW 14.3 Plt Count 158 PFSH Medical History Atrial fibrillation, chronic 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 UTI with bacteremia -continue with IV antibiotics with IV ceftriaxone -final cultures pending, has had E. coli with multiple resistances previously, has E. coli again this admission, await cultures and plan on 14 abx PO vs IV -likely secondary to urinary obstruction given urinary retention -keep peña in place -CT shows no evidence of obstruction 2. Urinary obstruction, urinary retention -continue flomax, finasteride, continue peña -will need outpatient follow up 3. Chronic afib -continue dabigatran -reconsider metoprolol 4. History of CHF, preserved EF -hold spironolactone, losartan, hctz -possibly restart tomorrow 5. Type 2 Diabetes -continue insulin sliding scale Time Spent With Patient Critical Care time: I spent a total of [] minutes of critical care time on this patient's care today; this time is exclusive of procedural time. Quality VTE Deep Vein Thrombosis/Pulmonary Embolism Present on Admission: No
[2021-09-18] MEDS: FINASTERIDE 5 MG TABLET PO (21:12)
[2021-09-18] MEDS: cefTRIAXone 2,000 MG in SODIUM CHLORIDE 0.9% 100 ML 200 ML IV (21:16)
[2021-09-18] MEDS: SODIUM CHLORIDE 0.9% FLUSH 10 ML IV (21:19)
[2021-09-19] VITALS: BP 129/78; PULSE 88; RESP 18; TEMP 36.7; O2SAT 96
[2021-09-19 04:29] VITALS: BP 144/75; PULSE 96; RESP 18; TEMP 36.6; O2SAT 95
[2021-09-19 05:55] LABS: Hematocrit 37.7 % (41-53); Hemoglobin 12.8 g/dL (13.5-17.5); Mean Corpuscular HGB Conc 34.1 % (30-36); Mean Corpuscular Hemoglobin 30.7 PG (26-34); Platelet Count 177 X10^3/uL (150-400); Red Blood Cell Count 4.19 X10^6/uL (4.5-5.9); Red Cell Distribution Width 13.9 % (11.6-14.8); White Blood Cell Count 8.6 X10^3/uL (4.5-11.0)
[2021-09-19 06:04] LABS: BUN Creatinine Ratio 19.8 (6-22); Blood Urea Nitrogen 16 mg/dL (9-20); Calcium 8.8 mg/dL (8.4-10.2); Carbon Dioxide 23 mmol/L (22-32); Chloride 106 mmol/L (98-107); Estimated Glomerular Filt Rate > 60 mL/min (>60); Glucose 114 mg/dL (80-110); HEMOLYSIS < 15 (0-50); Potassium 3.5 mmol/L (3.4-5.1); Sodium 136 mmol/L (137-145)
[2021-09-19 08:42] VITALS: PULSE 96; RESP 18; O2SAT 97
[2021-09-19] MEDS: DABIGATRAN 75 MG CAPSULE 150 MG PO (09:18)
[2021-09-19] MEDS: SODIUM CHLORIDE 0.9% FLUSH 10 ML IV (09:19)
[2021-09-19 09:20] VITALS: BP 148/90; PULSE 90
[2021-09-19] MEDS: METOPROLOL IR 50 MG TABLET 100 MG PO (09:23)
[2021-09-19 09:56] VITALS: BP 148/92; PULSE 88; RESP 16; TEMP 36.2; O2SAT 96
--- NOTE | 2021-09-19 12:06 | CM.DPC ---
DCP Cont: Discussed patient during team rounds. Hospitalist, Dr. Tejada, indicated, if he is able to get the final culture, may discharge home today, as long as he can do p.o. antibiotics. Asked the floor nurse if patient will be going home with peña, but she was not sure yet at this time. May see about home health for patient if he goes home on oral antibiotics with peña. P: DCP to continue to follow for needs. Soheila Menchaca RN/Supervisor [employer]
--- NOTE | 2021-09-19 12:45 | PM.DS.1 ---
History of Present Illness History of Present Illness Date Patient Seen: 09/19/21 Time Patient Seen: 12:50 Chief complaint: UTI Narrative: Per Dr. Betancur, This is an 86-year-old male with chronic atrial fibrillation, congestive heart failure, COPD, diabetes mellitus and recurrent urinary tract infections who presents with acute sepsis/urinary tract infection.? He describes that when his shaking/rigors begin he usually takes a few doses of Keflex and the symptoms resolve.? This time, 2 days ago that seemed to occur and then the symptoms came on stronger yesterday and did not let up.? When he presented to the emergency department he appeared quite septic, needing 10 L of oxygen and was found to have a white count of 10.9 with a lactic acid level of 4.6.? His urine is quite abnormal with 3+ blood, positive nitrates and 30-100 rbc's with 30-100 wbc's.? He has not had a fever.? With fluids, Lasix and antibiotics his oxygen need has dropped to 0 and his shaking has resolved.? He tells me that he lives in [place] in his own home with his Phyllis Maier who is his backup decision maker.? He does not recall the name of his new urologist.? He is already on finasteride and tamsulosin for this problem. Discharge Providers Provider Date of admission: 09/15/21 23:16 Discharge Date: 09/19/21 Primary care physician: Boyd Fairchild DO Discharge provider: Deyvi Tejada DO Summary Hospital Course Discharge Diagnosis: 1. UTI with E. coli bacteremia, acute, present on admission 2. Urinary obstruction, urinary retention 3. Chronic afib 4. History of CHF, preserved EF 5. Type 2 Diabetes Hospital Course: This is an 86-year-old male with a past medical history of chronic atrial fibrillation, CHF with preserved ejection fraction, and type 2 diabetes who was admitted with acute cystitis. His blood cultures ultimately returned positive with E coli bacteremia. He was awaiting sensitivities, however the lab on the day of discharge reported that the bacterial analyzer was down and his sensitivities would be delayed. Given his improvement in symptoms, lack of fever, and overall improvement on ceftriaxone, he was discharged on oral cefdinir for an additional 7 days (ultimately cultures did show sensitivity to cephalosporin the following day). He was also noted to have urinary obstruction and retention on admission. A Peña catheter was placed, and was continued the time of discharge. He is recommended to follow up with outpatient Urology for further management. No other changes are recommended at the time of discharge. Time Spent with Patient Time spent: Greater than 30 minutes Exam Vital Signs (past 8 hours): - 09/19/21 08:42 09/19/21 09:20 09/19/21 09:56 Temperature 97.1 F L Pulse Rate 96 H 90 88 Respiratory Rate 18 16 Blood Pressure 148/90 H 148/92 H Pulse Oximetry 97 96 Oxygen Delivery Method Room Air Oxygen Flow Rate 0 Narrative Exam Narrative: GEN: no acute distress CV: regular rate and rhythm, no murmurs PULM: clear bilaterally ABD: soft, nontender, nondistended, no organomegaly EXT: warm and well perfused with no edema Objective Labs Result Diagrams: 09/19/21 05:11 09/19/21 05:00 Labs: Laboratory Results - last 24 hr 09/19/21 09/19/21 05:00 05:11 WBC 8.6 RBC 4.19 L Hgb 12.8 L Hct 37.7 L MCV 90.0 MCH 30.7 MCHC 34.1 RDW 13.9 Plt Count 177 Sodium 136 L Potassium 3.5 Chloride 106 Carbon Dioxide 23 BUN 16 Creatinine 0.81 Estimated GFR > 60 BUN/Creatinine Ratio 19.8 Glucose 114 H Calcium 8.8 PFSH Medical History Atrial fibrillation, chronic 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 Chronic UTI Coronary artery disease Diabetic foot ulcer Dysuria Foot fracture, right Foot ulcer History of hematuria Hyperlipidemia Hypertension Right shoulder pain Toe pain Type 2 diabetes mellitus Urinary frequency Wound of skin Surgical History AICD (automatic cardioverter/defibrillator) present Family History Mother Congestive heart failure Pneumonia Father Pneumonia Social History household members: spouse Smoking Status: Never smoker alcohol intake: former substance use type: marijuana Discharge Plan Discharge Plan Patient Disposition: Home Provider Discharge Comment: You were admitted to the hospital with an infection of the bloodstream likely due to urine infection. This improved with antibiotics. Cultures have not finalized but given your improvement this medication can be changed to oral and you are okay to go home. You had a peña catheter placed for obstruction likely from your prostate. Please follow up with urology for further management. Discharge orders & Medications Prescriptions: New cefdinir 300 mg capsule 300 mg PO BID 7 Days Qty: 14 0RF Continued losartan 25 mg tablet 25 mg PO BID Qty: 180 3RF (DME) Blood Glucose Test Strip See Rx Instructions .ROUTE .MEDSUPPLY Qty: 100 5RF Rx Instructions: Use to test blood glucose twice daily. spironolactone [Aldactone] 25 mg tablet 25 mg PO QDAY Qty: 90 3RF Pradaxa 150 mg capsule See Rx Instructions .ROUTE .COMPLEX Qty: 180 3RF Dose Instruction: Take 1 capsule (150 mg) by mouth 2 times daily Rx Instructions: Take 1 capsule (150 mg) by mouth 2 times daily metoprolol tartrate 100 mg tablet 100 mg PO BID 0RF finasteride 5 mg tablet 5 mg PO BEDTIME Qty: 90 3RF tamsulosin [Flomax] 0.4 mg capsule 0.4 mg PO QAM Qty: 90 3RF Follow up/Referrals: Boyd Fairchild, [Primary Care Provider] - Diet/Activity/Treatments Diet: Diet as Tolerated Activity: As tolerated Visit Report/Discharge Packet Instructions: How to Care for Your Peña Catheter -- Male, DI for Urinary Tract Infection (UTI), DI for Sepsis -- Adult Discharge Data Primary Care Provider: Boyd Fairchild Quality VTE Deep Vein Thrombosis/Pulmonary Embolism Present on Admission: No
[2021-09-19 13:25] VITALS: BP 139/82; PULSE 88; RESP 16; TEMP 36.9; O2SAT 97
--- NOTE | 2021-09-19 15:29 | PC.NURSE ---
Pt to be discharged with Peña Catheter to home with plans for a follow up with Urology next Saturday. Discussed with Pt and Spouse how to care for the peña catheter at home and provided supplies and handout materials needed to perform this task. Spouse states that she feels comfortable with caring for the peña.
--- NOTE | 2021-09-19 16:00 | PC.NURSE ---
Pt dressed and discharged home. Pt IVs removed and no tele. Pt sent with all belongings to be transported via pov with spouse. Discharge paperwork reviewed with patient and spouse; discussed education about peña catheter care, new medication, medications to continue, follow up appointment, and stroke education. INSULATION FOREMAN took patient out via wheelchair.
== END 2021-09-19 16:14 | disposition home or self-care (01) | DRG 690 ==
LOC: ED 21:49 → AC 23:16
PROVIDERS: Internal Medicine; Admitting Provider Family Medicine; Emergency Provider Emergency Medicine; Family Provider Urology; PCP Family Medicine; Referring Provider Emergency Medicine; Visit Provider Family Medicine
DX: N39.0 Urinary tract infection, site not specified (principal); R78.81 Bacteremia; I50.30 Unspecified diastolic (congestive) heart failure; I48.20 Chronic atrial fibrillation, unspecified; B96.20 Unspecified Escherichia coli [E. coli] as the cause of diseases classified elsewhere; I11.0 Hypertensive heart disease with heart failure; N40.1 Benign prostatic hyperplasia with lower urinary tract symptoms; N13.8 Other obstructive and reflux uropathy; E11.9 Type 2 diabetes mellitus without complications; Z20.822 Contact with and (suspected) exposure to COVID-19; Z79.01 Long term (current) use of anticoagulants
CPT/HCPCS: 36415; 36600; 71045; 74176; 80048; 80053; 81001; 82550; 82805; 82962; 83605; 83880; 84145; 84484; 85025; 85027; 85379; 87040; 87077; 87086; 87150; 87186; 87205; 87633; 87635; 93005; 94762; 96361; 96365; 96375; 99285; C9803; J0696; J1815; J1940

== ENCOUNTER → 2021-12-05 14:12 | Outpatient (CLI) | payer OTHER, SELFPAY ==
[2021-09-16 16:51] VITALS: BMI 34.9
[2021-12-05 15:45] LABS: Appearance Urine UA CLEAR; Bilirubin Urine UA NEGATIVE (NEGATIVE); Color Urine UA YELLOW; Glucose Urine UA TRACE g/dL (Negative); Ketones Urine UA NEGATIVE (NEGATIVE); Leukocyte Esterase Urine UA 2+ (NEGATIVE); Nitrite Urine UA POSITIVE (Negative); Occult Blood Urine UA 2+ (Negative); Protein Urine UA NEGATIVE (Negative); Urobilinogen Urine UA 0.2 E.U./dL (0.2)
[2021-12-05 16:06] LABS: Bacteria Urine Moderate (10-30); Culture Indicated Urine Specimen Cultured; RBC Urine 1-5/HPF (0-5/HPF); Squamous Epithelial Cell Urine 1-5 /HPF (0-5/HPF); WBC Urine 10-30/HPF (0-5/HPF)
== END ==
PROVIDERS: Family Provider Urology; PCP Family Medicine; Referring Provider Urology; Visit Provider Urology
DX: R30.0 Dysuria (principal)
CPT/HCPCS: 81001; 87077; 87086; 87186

== ENCOUNTER 2021-12-11 05:58 | Emergency (ER) | payer OTHER, SELFPAY ==
[2021-09-16 16:51] VITALS: BMI 34.9
[2021-12-11 06:07] VITALS: BP 159/98; PULSE 85; RESP 19; TEMP 36.4; O2SAT 98; BMI 32.3
[2021-12-11] MEDS: LIDOCAINE 2% (GLYDO) 6 ML GEL TOP (06:24)
--- NOTE | 2021-12-11 06:30 | ED.MALEGU ---
HPI - Male Genitourinary General Chief complaint: Urogenital-Male Stated complaint: unable to urinate x1 day Time Seen by Provider: 12/11/21 06:00 Source: patient Mode of arrival: Ambulatory History of Present Illness HPI Narrative: 86-year-old male nonsmoker with extensive medical history including hypertension, TIA, AFib on Pradaxa, AICD and prior episodes of urinary retention lives at home and presents with his in the chief complaint of suprapubic discomfort and inability to urinate since last night. He denies any fever or chills nor nausea or vomiting. He had a Berry catheter most recently a few months ago when he was seen and evaluated for UTI with sepsis. He has an established relationship with local urology and is scheduled for a cystoscopy in a few weeks. He is currently taking antibiotics for the treatment of a urinary tract infection and denies any fever or chills as stated. He is not dizzy nor weak or lightheaded denies any back pain. Related Data Home Medications Medication Instructions Recorded Confirmed metoprolol tartrate 100 mg tablet 100 mg PO BID 11/04/19 12/10/21 Previous Rx's Medication Instructions Recorded finasteride 5 mg tablet 5 mg PO BEDTIME #90 tabs 12/05/20 tamsulosin 0.4 mg capsule (Flomax) 0.4 mg PO QAM #90 caps 12/05/20 blood sugar diagnostic (Blood #100 ea 12/23/20 Glucose Test strips) dabigatran etexilate 150 mg See Rx Instructions .Route 08/29/21 capsule (Pradaxa) .COMPLEX #180 caps losartan 25 mg tablet 25 mg PO BID #180 tabs 10/09/21 spironolactone 25 mg tablet See Rx Instructions .Route 11/29/21 .COMPLEX #90 tabs nitrofurantoin 100 mg PO BID #28 caps 12/07/21 monohydrate/macrocrystals 100 mg capsule Allergies Allergy/AdvReac Type Severity Reaction Status Date / Time lisinopril [LISINOPRIL] AdvReac Mild DRY COUGH Verified 12/10/21 16:28 Review of Systems Review of Systems Narrative: GENERAL: See HPI HEENT: Denies sinus pain, ear pain, sore throat, difficulty swallowing, dizziness. RESPIRATORY: Denies dyspnea, cough, wheezing, hemoptysis, sputum. CARDIOVASCULAR: Denies chest pain, palpitations, orthopnea, edema, GASTROINTESTINAL: See HPI : See HPI MUSCULOSKELETAL: denies weakness, joint pain, or bony pain SKIN: Denies rash, skin lesions, or other NEUROLOGIC: Denies weakness, headache, numbness, change in speech, confusion, seizures, incoordination. PSYCHIATRIC: No concerning psychosocial issues. 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 Chronic UTI Coronary artery disease Diabetic foot ulcer Dysuria Foot fracture, right Foot ulcer History of hematuria Hyperlipidemia Hypertension Right shoulder pain Toe pain Type 2 diabetes mellitus Urinary frequency Wound of skin Surgical History AICD (automatic cardioverter/defibrillator) present Family History Mother Congestive heart failure Pneumonia Father Pneumonia Social History household members: spouse Smoking Status: Never smoker alcohol intake: former substance use type: marijuana Smoking Status: Never smoker alcohol intake frequency: other Substance Use Type: marijuana Exam Narrative Exam Narrative: GEN: AOx3 and in mild distress EYES: Pupils are equal, round, and reactive to light and accommodation. Extraoccular muscles are intact bilaterally. There is no subconjunctival hemorrhage or exudate. CHEST: Lungs are clear to auscultation bilaterally and free of wheezes, rales, or rhonchi. Heart rate is regular rhythm, there are no murmurs, clicks, rubs, or gallops. There is no chest wall tenderness. ABD: Abdomen is soft and minimally tender in the suprapubic region. There is no guarding or rebound. Bowel sounds are normal in all 4 quadrants. There is no mass or organomegaly. EXT: Full painless ROM of all extremities with no loss of sensation or strength. SKIN: Warm, pink, and dry. No erythema or rash Initial Vital Signs Initial Vital Signs: Vital Signs Temperature 97.5 F L 12/11/21 06:07 Pulse Rate 85 12/11/21 06:07 Respiratory Rate 19 12/11/21 06:07 Blood Pressure 159/98 H 12/11/21 06:07 Pulse Oximetry 98 12/11/21 06:07 Oxygen Delivery Method 12/11/21 06:07 Course Course Course Narrative: Patient was unable to urinate and postvoid residual bladder scan noted over 800 mL of urine. Nursing placed an 18FR cudet and got out over 800 cc. Patient had a complete resolution of symptoms. He has no signs of sepsis and is feeling well Orders Ordered: Discontinued Medications Lidocaine HCl (Lidocaine 2% (Glydo) 6 Ml Gel) 6 ml TOP NOW ONE Stop: 12/11/21 06:10 Last Admin: 12/11/21 06:24 Dose: 6 ml Documented By: DENNYS Vital Signs Vital signs: Vital Signs - 8 hr 12/11/21 06:07 Temperature 97.5 F L Pulse Rate 85 Respiratory Rate 19 Blood Pressure 159/98 H Pulse Oximetry 98 Oxygen Delivery Method Room Air MDM - Male Genitourinary Lab Data Labs: Lab Results 12/11/21 Range/Units 06:30 Urine Color Dark yellow Urine Appearance Sl cloudy Urine pH 5.0 (4.5-8.0) Ur Specific [place] <=1.005 (1.000-1.035) Urine Protein Trace H (Negative) Urine Glucose (UA) Negative (Negative) g/dL Urine Ketones Negative (NEGATIVE) Urine Occult Blood 3+ H (Negative) Urine Nitrate Negative (Negative) Urine Bilirubin Negative (NEGATIVE) Urine Urobilinogen 0.2 (0.2) E.U./dL Ur Leukocyte Esterase Trace H (NEGATIVE) Urine RBC >100/hpf H (0-5/HPF) Urine WBC 0-1/hpf (0-5/HPF) Ur Squamous Epith Cells 0-1 /hpf (0-5/HPF) Urine Bacteria Few (2-10) H (None) Ur Culture Indicated? Specimen cultured Discharge Plan Departure Patient Disposition: Home Clinical Impression: Acute retention of urine Instructions: DI for Urinary Retention in Men Activity Restrictions/Additional Instructions: *You have been diagnosed with [acute urinary retention] *What to do: *Please continue to take your regular medications as directed. *Please follow up with your primary urologist, call for an appointment. Let them know you were seen in the Emergency Department and that we ask that you be seen in follow up. We will electronically transmit a record of today's note *Return to Emergency Department if you should have any new, worsening or concerning symptoms, such as [fever greater than 101 F, shaking chills, worsening pain, persistent vomiting or other bothersome symptoms] Prescriptions: No Action (DME) Blood Glucose Test Strip See Rx Instructions .ROUTE .MEDSUPPLY Qty: 100 5RF Rx Instructions: Use to test blood glucose twice daily. Pradaxa 150 mg capsule See Rx Instructions .ROUTE .COMPLEX Qty: 180 3RF Dose Instruction: Take 1 capsule (150 mg) by mouth 2 times daily Rx Instructions: Take 1 capsule (150 mg) by mouth 2 times daily losartan 25 mg tablet 25 mg PO BID Qty: 180 3RF spironolactone 25 mg tablet See Rx Instructions .ROUTE .COMPLEX Qty: 90 3RF Dose Instruction: Take 1 tablet (25 mg) by mouth daily Rx Instructions: Take 1 tablet (25 mg) by mouth daily nitrofurantoin monohyd/m-cryst 100 mg capsule 100 mg PO BID Qty: 28 0RF Rx Instructions: must administer with a meal/food metoprolol tartrate 100 mg tablet 100 mg PO BID finasteride 5 mg tablet 5 mg PO BEDTIME Qty: 90 3RF tamsulosin [Flomax] 0.4 mg capsule 0.4 mg PO QAM Qty: 90 3RF Referrals: Boyd Fairchild DO [Primary Care Provider] - Visit Report Forms: Patient Portal/API
[2021-12-11 06:40] LABS: Appearance Urine UA SL CLOUDY; Bilirubin Urine UA NEGATIVE (NEGATIVE); Glucose Urine UA NEGATIVE (Negative); Ketones Urine UA NEGATIVE (NEGATIVE); Leukocyte Esterase Urine UA TRACE (NEGATIVE); Nitrite Urine UA NEGATIVE (Negative); Occult Blood Urine UA 3+ (Negative); Protein Urine UA TRACE (Negative); Specific Gravity Urine UA <=1.005 (1.000-1.035); Urobilinogen Urine UA 0.2 E.U./dL (0.2)
[2021-12-11 06:41] LABS: Color Urine UA Dark Yellow
[2021-12-11 06:45] LABS: Bacteria Urine Few (2-10); Squamous Epithelial Cell Urine 0-1 /HPF (0-5/HPF); WBC Urine 0-1/HPF (0-5/HPF)
[2021-12-11 06:46] LABS: Culture Indicated Urine Specimen Cultured; RBC Urine >100/HPF (0-5/HPF)
== END 2021-12-11 07:05 | disposition home or self-care (01) ==
PROVIDERS: Emergency Provider Emergency Medicine; Family Provider Urology; PCP Family Medicine
DX: R33.8 Other retention of urine (principal)
CPT/HCPCS: 51798; 81001; 87086; 99283

== ENCOUNTER 2021-12-14 09:59 | Emergency (ER) | payer OTHER, SELFPAY ==
[2021-12-13 16:04] VITALS: BMI 34.9
[2021-12-14 10:22] VITALS: BP 139/94
[2021-12-14 10:23] VITALS: PULSE 112; RESP 20; O2SAT 97
[2021-12-14 10:37] VITALS: BP 139/96; PULSE 125; RESP 18; TEMP 36.6; O2SAT 96; BMI 32.3
[2021-12-14 13:29] VITALS: PULSE 90; O2SAT 99
--- NOTE | 2021-12-14 13:35 | ED.MALEGU ---
HPI - Male Genitourinary General Chief complaint: Urogenital-Male Stated complaint: Wants cath removed, leaking Time Seen by Provider: 12/14/21 13:22 Source: patient Mode of arrival: Ambulatory History of Present Illness HPI Narrative: This is an 86-year-old male with history of BPH, diabetes type 2, atrial fibrillation with chronic anticoagulation, coronary artery disease, and recent ER visit for urinary retention last week with subsequent Berry catheter placement (18 afghan) and patient presents to the emergency department today for intermittent leaking around his catheter, had a subjective fever night, and suprapubic discomfort. He states that his urology follow-up with Dr. Fowler was rescheduled by the clinic, it was supposed to be December 22 and he states it was rescheduled for January 06. He states that he would like to follow-up with Dr. Gupta if he is able. He is chronically anticoagulated on Pradaxa and endorses intermittent hematuria with movements of his catheter. He denies any catheter obstruction, has been using a leg bag during the day, he has been monitored glucose and states that his blood sugars have been stable. He denies any nausea or vomiting, chills, flank pain, or sediment in his Berry catheter. On chart review, patient saw Dr. Fowler on 09/25/2021 for follow-up after his admission to the hospital for multidrug resistant E coli urosepsis, he had positive blood cultures and urine cultures. The organism was sensitive to cephalosporin but patient had been taking cephalexin intermittently for UTI symptoms. Dr. Fowler thought that the patient had some degree of prostatitis as a source of his infection since all of them were E coli. He wishes for the patient to have a urine culture prior to starting any antibiotics however, currently patient has been on nitrofurantoin since 12/05/2021 and was prescribed two weeks of this. His previous E coli urine culture was susceptible to both nitrofurantoin and cephalosporins but resistant to multiple other agents. Related Data Home Medications Medication Instructions Recorded Confirmed metoprolol tartrate 100 mg tablet 100 mg PO BID 11/04/19 12/10/21 Previous Rx's Medication Instructions Recorded finasteride 5 mg tablet 5 mg PO BEDTIME #90 tabs 12/05/20 blood sugar diagnostic (Blood #100 ea 12/23/20 Glucose Test strips) dabigatran etexilate 150 mg See Rx Instructions .Route 08/29/21 capsule (Pradaxa) .COMPLEX #180 caps losartan 25 mg tablet 25 mg PO BID #180 tabs 10/09/21 spironolactone 25 mg tablet See Rx Instructions .Route 11/29/21 .COMPLEX #90 tabs nitrofurantoin 100 mg PO BID #28 caps 12/07/21 monohydrate/macrocrystals 100 mg capsule tamsulosin 0.4 mg capsule See Rx Instructions .Route 12/13/21 .COMPLEX #90 caps cefdinir 300 mg capsule 300 mg PO Q12H 7 days #14 caps 12/14/21 Allergies Allergy/AdvReac Type Severity Reaction Status Date / Time lisinopril [LISINOPRIL] AdvReac Mild DRY COUGH Verified 12/10/21 16:28 Review of Systems Review of Systems Narrative: General: Endorses subjective fever last night but denies, chills, malaise, or sweats Head/Neck: denies headache, neck pain, dizziness Eyes: denies visual changes, eye pain Cardio: denies chest pain, palpitations, edema Respiratory: denies dyspnea, cough, orthopnea GI: denies abdominal pain, nausea, vomiting, or diarrhea, endorses suprapubic pressure : denies dysuria, endorses hematuria, cloudy urine, with foul odor MSK: denies joint pain, muscle weakness Skin: denies rash, itching, skin lesions or other Neuro: denies numbness, tingling Patient History Medical History Atrial fibrillation, chronic 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 Chronic UTI Coronary artery disease Diabetic foot ulcer Dysuria Foot fracture, right Foot ulcer History of hematuria Hyperlipidemia Hypertension Right shoulder pain Toe pain Type 2 diabetes mellitus Urinary frequency Wound of skin Surgical History AICD (automatic cardioverter/defibrillator) present Family History Mother Congestive heart failure Pneumonia Father Pneumonia Social History household members: spouse Smoking Status: Never smoker alcohol intake: former substance use type: marijuana Smoking Status: Never smoker alcohol intake frequency: other Substance Use Type: marijuana Exam Narrative Exam Narrative: Independently reviewed vitals signs and nursing notes. General: cooperative, comfortable, in no acute distress, well groomed Head: atraumatic, symmetrical facial expressions Neck: supple Eyes: equal round and reactive, EOMI, conjunctiva normal Nose: nares patent, no rhinorrhea Mouth/Throat: moist mucus membranes Cardiovascular: regular rate and rhythm, no peripheral edema, warm extremities Respiratory: normal effort, able to speak in complete sentences, no audible wheezing, stridor, or rales. No retractions or tachypnea. GI: abdomen soft, nontender to palpation, nondistended, no masses, no exquisite tenderness with exam, without guarding or rebound. Suprapubic tenderness to pressure : Urine is slightly cloudy, dark yellow, catheter is an 18 Mosotho, currently hooked up to a leg bag, this was changed by the bedside nurse with a new sterile bag and urine was obtained the fresh bag. MSK: moves all extremities, neurovascularly intact, no weakness, normal tone Skin: brisk capillary refill, no rash, no erythema Neuro: normal speech and cognition, A&O x3 Psych: mental status is grossly normal, congruent mood, normal affect, pleasant and cooperative Initial Vital Signs Initial Vital Signs: Vital Signs Blood Pressure 139/94 H 12/14/21 10:22 Course Orders Ordered: Discontinued Medications Sodium Chloride (Normal Saline 0.9%) 1,000 mls @ 1,000 mls/hr IV BOLUS ONE Stop: 12/14/21 14:45 Ceftriaxone Sodium 1,000 mg/ (Sodium Chloride) 100 mls @ 200 mls/hr IV NOW ONE Stop: 12/14/21 14:19 Last Infusion: 12/14/21 16:30 Dose: 0 mls/hr Documented By: Admin: 12/14/21 15:52 Dose: 200 mls/hr Documented By: AT Vital Signs Vital signs: Vital Signs - 8 hr 12/14/21 13:29 12/14/21 14:57 12/14/21 16:35 Pulse Rate 90 79 77 Respiratory Rate 16 16 Pulse Oximetry 99 99 99 Oxygen Delivery Method Room Air Room Air Room Air MDM - Male Genitourinary Lab Data Lab results narrative: Urine Culture Final 12/07/21-740 Organism 1 Escherichia coli Sanger Count >100,000 CFU/ml 1. Escherichia coli M.I.C. RX --------- --- * Amoxicillin/Clavulanate 4 S * Ampicillin >=32 R * Ampicillin/Sulbactam >=32 R * Cefazolin <=4 S * Cefepime <=1 S * Ceftazidime <=1 S * Ceftriaxone <=1 S * Ciprofloxacin >=4 R * Ertapenem <=0.5 S * Gentamicin >=16 R * Imipenem 1 S * Levofloxacin >=8 R * Nitrofurantoin <=16 S * Tobramycin 8 I * Trimethoprim/Sulfamethoxazole >=320 R * Piperacillin/Tazobactam <=4 S Result diagrams: 12/14/21 15:45 12/14/21 15:45 Labs: Lab Results 12/14/21 12/14/21 12/14/21 Range/Units 13:38 15:45 15:45 WBC 9.8 (4.5-11.0) X10^3/uL RBC 4.34 L (4.5-5.9) X10^6/uL Hgb 13.4 L (13.5-17.5) g/dL Hct 39.2 L (41-53) % MCV 90.3 (80-100) fL MCH 30.9 (26-34) PG MCHC 34.3 (30-36) % RDW 14.4 (11.6-14.8) % Plt Count 252 (150-400) X10^3/uL Neut % (Auto) 69.4 (50-75) % Lymph % (Auto) 14.4 L (25-40) % [place] % (Auto) 9.8 (3-14) % Eos % (Auto) 5.9 H (2-4) % Baso % (Auto) 0.5 (0-2) % Neut # (Auto) 6800 (7321-2151) /uL Lymph # (Auto) 1400 (7650-4843) /uL [place] # (Auto) 1000 H (0-900) /uL Eos # (Auto) 600 H (0-450) /uL Baso # (Auto) 100 (0-100) /uL Sodium 135 L (137-145) mmol/L Potassium 3.9 (3.4-5.1) mmol/L Chloride 103 (98-107) mmol/L Carbon Dioxide 25 (22-32) mmol/L BUN 18 (9-20) mg/dL Creatinine 0.96 (0.66-1.25) mg/dL Estimated GFR > 60 (>60) mL/min BUN/Creatinine Ratio 18.8 (6-22) Glucose 118 H (80-110) mg/dL Lactate (0.7-2.1) mmol/L Calcium 9.0 (8.4-10.2) mg/dL Total Bilirubin 0.8 (0.2-1.3) mg/dL AST 25 (17-59) IU/L ALT 15 (<50) IU/L Alkaline Phosphatase 61 (38-126) U/L Total Protein 7.2 (6.3-8.2) g/dL Albumin 3.7 (3.5-5.0) g/dL Globulin 3.5 (1.7-4.1) g/dL Albumin/Globulin Ratio 1.1 (1.0-2.8) Procalcitonin 0.06 (<0.5) ng/mL Urine Color Yellow Urine Appearance Sl cloudy Urine pH 5.0 (4.5-8.0) Ur Specific Divide 1.020 (1.000-1.035) Urine Protein 2+ H (Negative) Urine Glucose (UA) Trace H (Negative) g/dL Urine Ketones Negative (NEGATIVE) Urine Occult Blood 3+ H (Negative) Urine Nitrate Negative (Negative) Urine Bilirubin Negative (NEGATIVE) Urine Urobilinogen 0.2 (0.2) E.U./dL Ur Leukocyte Esterase 1+ H (NEGATIVE) Urine RBC 30-100/hpf H (0-5/HPF) Urine WBC 10-30/hpf H (0-5/HPF) Urine Bacteria Few (2-10) H (None) Ur Culture Indicated? Specimen cultured 12/14/21 Range/Units 15:45 WBC (4.5-11.0) X10^3/uL RBC (4.5-5.9) X10^6/uL Hgb (13.5-17.5) g/dL Hct (41-53) % MCV (80-100) fL MCH (26-34) PG MCHC (30-36) % RDW (11.6-14.8) % Plt Count (150-400) X10^3/uL Neut % (Auto) (50-75) % Lymph % (Auto) (25-40) % [place] % (Auto) (3-14) % Eos % (Auto) (2-4) % Baso % (Auto) (0-2) % Neut # (Auto) (4348-8814) /uL Lymph # (Auto) (2091-8307) /uL [place] # (Auto) (0-900) /uL Eos # (Auto) (0-450) /uL Baso # (Auto) (0-100) /uL Sodium (137-145) mmol/L Potassium (3.4-5.1) mmol/L Chloride (98-107) mmol/L Carbon Dioxide (22-32) mmol/L BUN (9-20) mg/dL Creatinine (0.66-1.25) mg/dL Estimated GFR (>60) mL/min BUN/Creatinine Ratio (6-22) Glucose (80-110) mg/dL Lactate 0.9 (0.7-2.1) mmol/L Calcium (8.4-10.2) mg/dL Total Bilirubin (0.2-1.3) mg/dL AST (17-59) IU/L ALT (<50) IU/L Alkaline Phosphatase (38-126) U/L Total Protein (6.3-8.2) g/dL Albumin (3.5-5.0) g/dL Globulin (1.7-4.1) g/dL Albumin/Globulin Ratio (1.0-2.8) Procalcitonin (<0.5) ng/mL Urine Color Urine Appearance Urine pH (4.5-8.0) Ur Specific Divide (1.000-1.035) Urine Protein (Negative) Urine Glucose (UA) (Negative) g/dL Urine Ketones (NEGATIVE) Urine Occult Blood (Negative) Urine Nitrate (Negative) Urine Bilirubin (NEGATIVE) Urine Urobilinogen (0.2) E.U./dL Ur Leukocyte Esterase (NEGATIVE) Urine RBC (0-5/HPF) Urine WBC (0-5/HPF) Urine Bacteria (None) Ur Culture Indicated? MDM Narrative Medical decision making narrative: This is an 86-year-old male who presents to the emergency department complaining of leaking around his urinary catheter, suprapubic pain, hematuria which started yesterday. Patient has a history of atrial fibrillation, chronic anticoagulation on Pradaxa, BPH, type 2 diabetes, and presents to the emergency department with urinary retention and a distended bladder on 12/11/2021. He had follow-up with Dr. Fowler recently, and his cystoscopy was rescheduled for January 06, patient reports that he was frustrated over this and does not know why. Patient's urine today compared to his prior urine on 12/11/2021 appears to be infected with greater bacterial load than that time. Urine culture was obtained and is pending. Review of patient's prior urine cultures shows E coli with multi-drug resistance, patient is currently on nitrofurantoin, has been on a regimen for two weeks, states only has three days left of this. Patient's urine culture from 12/11/2021 did not grow any bacteria, likely due to his nitrofurantoin prescription. Susceptibility from E coli growth off urine on 12/07/2021 show susceptibility to 2nd 3rd and 4th generation cephalosporins, Macrobid, and is resistant to multiple other agents. Consultation with Dr. Fowler who agrees with plan of care, urine culture is pending, patient was treated with ceftriaxone in the emergency department due to susceptibility on that urine culture. Prescribed seven days of b.i.d. cefdinir, will follow-up with Dr. Fowler in the clinic, urine catheter is a [address] Fowler did not recommend exchanging for a larger Mosotho catheter. This was let the same, there was no significant leakage, no penile wound. Patient and his state understanding, she went to the clinic prior to discharge to have a conversation with the providers there and set up follow-up. Patient does not have any significant findings on his lab work today, no leukocytosis, no lactic acidosis, procalcitonin 0.06. Patient will follow-up with Dr. Fowler, I consulted with him and he agrees with the plan of care. Urine culture is pending. Patient is appropriate and amenable to discharge home. Vital signs are stable on repeat examination is unremarkable. Patient has been informed of results. Patient has been given strict return to ER precautions for any new or worsening symptoms. Patient understands to follow up closely with outpatient providers as instructed. Patient understands plan and agrees to discharge home. All questions and concerns answered at this time. Discharge Plan Departure Patient Disposition: Home Clinical Impression: Acute UTI Instructions: How to Care for Your Berry Catheter -- Male, DI for Urinary Tract Infection (UTI) Activity Restrictions/Additional Instructions: *You have been diagnosed with recurrence of your urinary tract infection. We have cultured the urine, I gave you an antibiotic in the emergency department to help reduce this bacterial load, stay hydrated, and please empty your catheter prior to lying down to prevent back flowing. I do not recommend increasing the size of your catheter at this point because the next size up is significantly larger, if you are leaking intermittently with bearing down, consider adding a stool softener to reduce bearing down and the pressure required to have a bowel movement. Please contact the urology office and asked to follow-up with Alonso or Dr. Fowler, whoever can see you sooner. We will call you if your antibiotic regimen needs to change, please continue taking the antibiotic that you have, and add cefdinir twice a day for the next seven days. Follow-up at the urology clinic or with your primary care provider within one week. I placed a new referral to Dr. Fowler, please see if you can change her appointment and make it sooner or follow-up with another provider. *What to do: *Please continue to take your regular medications as directed. [ x] New medication prescriptions sent to your pharmacy: [[facility] ] [ ] New medication written as a paper prescription [ ] No new medications given *Please follow up with your primary care provider in 2-3 days, call for an appointment. Let them know you were seen in the Emergency Department and that we asked that you be seen for follow-up. We will electronically transmit a record of today's note if your PCP is in our system *If you do not have a primary care provider please contact [phone] to establish care with one of [facility] primary care providers. *Return to Emergency Department if you should have any new, worsening or concerning symptoms, such as [fever greater than 101F, chills, worsening pain, persistent vomiting or other bothersome symptoms] Prescriptions: New cefdinir 300 mg capsule 300 mg PO Q12H 7 Days Qty: 14 0RF No Action (DME) Blood Glucose Test Strip See Rx Instructions .ROUTE .MEDSUPPLY Qty: 100 5RF Rx Instructions: Use to test blood glucose twice daily. Pradaxa 150 mg capsule See Rx Instructions .ROUTE .COMPLEX Qty: 180 3RF Dose Instruction: Take 1 capsule (150 mg) by mouth 2 times daily Rx Instructions: Take 1 capsule (150 mg) by mouth 2 times daily losartan 25 mg tablet 25 mg PO BID Qty: 180 3RF spironolactone 25 mg tablet See Rx Instructions .ROUTE .COMPLEX Qty: 90 3RF Dose Instruction: Take 1 tablet (25 mg) by mouth daily Rx Instructions: Take 1 tablet (25 mg) by mouth daily nitrofurantoin monohyd/m-cryst 100 mg capsule 100 mg PO BID Qty: 28 0RF Rx Instructions: must administer with a meal/food tamsulosin 0.4 mg capsule See Rx Instructions .ROUTE .COMPLEX Qty: 90 3RF Dose Instruction: Take 1 capsule (0.4 mg) by mouth every morning Rx Instructions: Take 1 capsule (0.4 mg) by mouth every morning metoprolol tartrate 100 mg tablet 100 mg PO BID finasteride 5 mg tablet 5 mg PO BEDTIME Qty: 90 3RF Referrals: Teja Gupta MD [Physician] - Boyd Fairchild DO [Primary Care Provider] - Shay Fowler MD [Physician] - 3-5 days Visit Report Forms: Patient Portal/API
--- NOTE | 2021-12-14 13:45 | PC.NURSE ---
Patient leg bag switched to a new leg bag.
[2021-12-14 14:48] LABS: Appearance Urine UA SL CLOUDY; Bilirubin Urine UA NEGATIVE (NEGATIVE); Color Urine UA YELLOW; Glucose Urine UA TRACE g/dL (Negative); Ketones Urine UA NEGATIVE (NEGATIVE); Leukocyte Esterase Urine UA 1+ (NEGATIVE); Nitrite Urine UA NEGATIVE (Negative); Occult Blood Urine UA 3+ (Negative); Protein Urine UA 2+ (Negative); Urobilinogen Urine UA 0.2 E.U./dL (0.2)
[2021-12-14 14:57] VITALS: PULSE 79; RESP 16; O2SAT 99
[2021-12-14 15:04] LABS: Bacteria Urine Few (2-10); Culture Indicated Urine Specimen Cultured; RBC Urine 30-100/HPF (0-5/HPF); WBC Urine 10-30/HPF (0-5/HPF)
[2021-12-14] MEDS: cefTRIAXone 1,000 MG in SODIUM CHLORIDE 0.9% 100 ML 200 MG IV (15:52)
[2021-12-14 15:55] LABS: Add Manual Diff / Slide Review NO; Basophils Absolute Auto 100 /uL (0-100); Basophils Percent Auto 0.5 % (0-2); Eosinophils Absolute Auto 600 /uL (0-450); Eosinophils Percent Auto 5.9 % (2-4); Hematocrit 39.2 % (41-53); Hemoglobin 13.4 g/dL (13.5-17.5); Lymphocytes Absolute Auto 1400 /uL (1100-4500); Lymphocytes Percent Auto 14.4 % (25-40); Mean Corpuscular HGB Conc 34.3 % (30-36); Mean Corpuscular Hemoglobin 30.9 PG (26-34); Mean Corpuscular Volume 90.3 fL (80-100); Monocytes Absolute Auto 1000 /uL (0-900); Monocytes Percent Auto 9.8 % (3-14); Neutrophils Absolute Auto 6800 /uL (1500-7000); Neutrophils Percent Auto 69.4 % (50-75); Platelet Count 252 X10^3/uL (150-400); Red Blood Cell Count 4.34 X10^6/uL (4.5-5.9); Red Cell Distribution Width 14.4 % (11.6-14.8); White Blood Cell Count 9.8 X10^3/uL (4.5-11.0)
[2021-12-14 16:10] LABS: Lactate (Lactic Acid) 0.9 mmol/L (0.7-2.1)
[2021-12-14 16:12] LABS: Alanine Aminotransferase 15 IU/L (<50); Albumin 3.7 g/dL (3.5-5.0); Albumin Globulin Ratio 1.1 (1.0-2.8); Alkaline Phosphatase 61 U/L (38-126); Aspartate Aminotransferase 25 IU/L (17-59); BUN Creatinine Ratio 18.8 (6-22); Bilirubin Total 0.8 mg/dL (0.2-1.3); Blood Urea Nitrogen 18 mg/dL (9-20); Carbon Dioxide 25 mmol/L (22-32); Chloride 103 mmol/L (98-107); Estimated Glomerular Filt Rate > 60 mL/min (>60); Globulin 3.5 g/dL (1.7-4.1); Glucose 118 mg/dL (80-110); HEMOLYSIS 20 (0-50); Potassium 3.9 mmol/L (3.4-5.1); Sodium 135 mmol/L (137-145); Total Protein 7.2 g/dL (6.3-8.2)
[2021-12-14 16:28] LABS: Procalcitonin 0.06 ng/mL (<0.5)
[2021-12-14 16:35] VITALS: PULSE 77; RESP 16; O2SAT 99
--- NOTE | 2021-12-14 16:36 | PC.NURSE ---
At time of discharge noted rash on patients lower legs and arms, small dispersed dots, Crew INSIDE SALES ADMINISTRATOR notified and assessed pt, Crew INSIDE SALES ADMINISTRATOR educated pt and on prevalence of rash and worsening signs to look out for.
== END 2021-12-14 16:38 | disposition home or self-care (01) ==
PROVIDERS: Emergency Provider Nurse Practitioner Critical Care Medicine; Family Provider Urology; PCP Family Medicine
DX: N39.0 Urinary tract infection, site not specified (principal); Z79.01 Long term (current) use of anticoagulants
CPT/HCPCS: 36415; 80053; 81001; 83605; 84145; 85025; 87086; 96365; 99284; J0696

== ENCOUNTER 2021-12-27 14:19 | Emergency (ER) | payer OTHER, SELFPAY ==
[2021-12-13 16:04] VITALS: BMI 34.9
[2021-12-27 14:37] VITALS: BP 159/75; PULSE 78; RESP 18; TEMP 35.9; O2SAT 99; BMI 31.8
--- NOTE | 2021-12-27 17:40 | ED_ITS ---
HPI - Male Genitourinary <Michelle Maharaj, [facility] - Last Filed: 12/27/21 18:44> General Chief complaint: Urogenital-Male Stated complaint: Needs catheter removed Time Seen by Provider: 12/27/21 17:03 Source: patient Mode of arrival: Ambulatory History of Present Illness HPI Narrative: This is a 86-year-old male who returns to the emergency department complaining of his urinary catheter and wishes to have it removed. Patient has had his Berry catheter since 12/11/2021 when he was seen for acute retention of urine he followed up with Dr. Fowler who placed an 18 gauge Berry catheter and started patient on finasteride, tamsulosin 0.4 mg and scheduled follow-up for December 22 but was later changed to January 06. Patient reports that he does not want to wait that long and he does not want to see Dr. Fowler if he can choose. Patient wishes to see Dr. Gupta or be referred to another urologist for frustrations about missing phone calls and changing his appointment times. I saw this patient on December 14 in the emergency department after he saw Dr. Fowler just prior, I spoke with Dr. Fowler about the patient on that day and he stated that patient needs to keep his Berry catheter in due to his bladder stretch injury, and he was leaking around his 18 gauge catheter that time so placing a new Ebrry catheter in the emergency department today is not a good plan because we did not have any larger than an 18 gauge Mongolian and patient may have ongoing leakage. Discussed with the patient that it is not recommended to remove a Berry catheter without allowing for adequate time and evaluation from Urology about their BPH and reason for urinary retention. Discussed with him that it takes at least 2 weeks for all of the anatomy to start to return to normal so it is normal to still have a Berry catheter in at this time. Patient states that he wishes to have his catheter removed regardless and he will go to [place] for urology care. He denies having any other Urology referrals. Patient has a history of BPH, diabetes type 2, atrial fibrillation with chronic anticoagulation on dabigatran, and coronary artery disease. He denies any recent fever, urinary changes, leakage, denies any significant pain but states that his catheter is uncomfortable and he is tired of dealing with it. He states that he would accept lidocaine jelly if he has to keep this in as it may help his discomfort. Related Data Home Medications Medication Instructions Recorded Confirmed metoprolol tartrate 100 mg tablet 100 mg PO BID 11/04/19 12/10/21 Previous Rx's Medication Instructions Recorded finasteride 5 mg tablet 5 mg PO BEDTIME #90 tabs 12/05/20 dabigatran etexilate 150 mg See Rx Instructions .Route 08/29/21 capsule (Pradaxa) .COMPLEX #180 caps losartan 25 mg tablet 25 mg PO BID #180 tabs 10/09/21 spironolactone 25 mg tablet See Rx Instructions .Route 11/29/21 .COMPLEX #90 tabs nitrofurantoin 100 mg PO BID #28 caps 12/07/21 monohydrate/macrocrystals 100 mg capsule tamsulosin 0.4 mg capsule See Rx Instructions .Route 12/13/21 .COMPLEX #90 caps blood-glucose meter (OneTouch #1 kit 12/18/21 Verio Flex Start kit) lidocaine HCl 2 % mucosal jelly 1 applic topical QD-BID PRN 12/27/21 catheter pain #30 mL Allergies Allergy/AdvReac Type Severity Reaction Status Date / Time lisinopril [LISINOPRIL] AdvReac Mild DRY COUGH Verified 12/10/21 16:28 Review of Systems <PAT Powell - Last Filed: 12/27/21 18:44> Review of Systems Narrative: General: denies fever, chills, malaise, sweats, fatigue Head/Neck: denies headache, neck pain, dizziness Eyes: denies visual changes, eye pain Cardio: denies chest pain, palpitations, edema Respiratory: denies dyspnea, cough, orthopnea GI: denies abdominal pain, nausea, vomiting, or diarrhea : denies dysuria, hematuria, urinary retention, frequency or incontinence, states that his Berry catheter is in place but he denies having any symptoms of bladder infection since he finished his antibiotics. MSK: denies joint pain, muscle weakness Skin: denies rash, itching, skin lesions or other Neuro: denies numbness, tingling Patient History <PAT Powell - Last Filed: 12/27/21 18:44> Medical History Atrial fibrillation, chronic 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 Chronic UTI Coronary artery disease Diabetic foot ulcer Dysuria Foot fracture, right Foot ulcer History of hematuria Hyperlipidemia Hypertension Right shoulder pain Toe pain Type 2 diabetes mellitus Urinary frequency Wound of skin Surgical History AICD (automatic cardioverter/defibrillator) present Family History Mother Congestive heart failure Pneumonia Father Pneumonia Social History household members: spouse Smoking Status: Never smoker alcohol intake: former substance use type: marijuana Smoking Status: Never smoker alcohol intake frequency: other Substance Use Type: marijuana Exam <PAT Powell - Last Filed: 12/27/21 18:44> Narrative Exam Narrative: Independently reviewed vitals signs and nursing notes. General: cooperative, comfortable, in no acute distress, well groomed Head: atraumatic, symmetrical facial expressions Neck: supple Eyes: equal round and reactive, EOMI, conjunctiva normal Nose: nares patent, no rhinorrhea Mouth/Throat: moist mucus membranes Cardiovascular: regular rate and rhythm, no peripheral edema, warm extremities Respiratory: normal effort, able to speak in complete sentences, no audible wheezing, stridor, or rales. No retractions or tachypnea. GI: abdomen soft, nontender to palpation, nondistended, no masses, no exquisite tenderness with exam, without guarding or rebound. : 18 gauge Berry catheter remains in place without wound to his penis, without any drainage or leakage, and without any obstruction. It is draining clear yellow urine without sediment or obvious hematuria. MSK: moves all extremities, neurovascularly intact, no weakness, normal tone Skin: brisk capillary refill, no rash, no erythema Neuro: normal speech and cognition, A&O x3 Psych: mental status is grossly normal, congruent mood, normal affect, pleasant and cooperative Initial Vital Signs Initial Vital Signs: Vital Signs Temperature 96.6 F L 12/27/21 14:37 Pulse Rate 78 12/27/21 14:37 Respiratory Rate 18 12/27/21 14:37 Blood Pressure 159/75 H 12/27/21 14:37 Pulse Oximetry 99 12/27/21 14:37 Oxygen Delivery Method 12/27/21 14:37 <Amanda Albarado DO - Last Filed: 01/01/22 03:46> Initial Vital Signs Initial Vital Signs: Vital Signs Temperature 96.6 F L 12/27/21 14:37 Pulse Rate 78 12/27/21 14:37 Respiratory Rate 18 12/27/21 14:37 Blood Pressure 159/75 H 12/27/21 14:37 Pulse Oximetry 99 12/27/21 14:37 Oxygen Delivery Method 12/27/21 14:37 Course <PAT Powell - Last Filed: 12/27/21 18:44> Orders Ordered: ED Orders 12/27/21 17:11 Consult to Urology Stat Vital Signs Vital signs: Vital Signs - 8 hr 12/27/21 14:37 Temperature 96.6 F L Pulse Rate 78 Respiratory Rate 18 Blood Pressure 159/75 H Pulse Oximetry 99 Oxygen Delivery Method Room Air <Amanda Albarado DO - Last Filed: 01/01/22 03:46> Orders Ordered: ED Orders 12/27/21 17:11 Consult to Urology Stat Vital Signs Vital signs: Vital Signs - 8 hr 12/27/21 14:37 Temperature 96.6 F L Pulse Rate 78 Respiratory Rate 18 Blood Pressure 159/75 H Pulse Oximetry 99 Oxygen Delivery Method Room Air MDM - Male Genitourinary <PAT Powell - Last Filed: 12/27/21 18:44> MDM Narrative Medical decision making narrative: This is a pleasant 86-year-old male who presents to the emergency department wishing to have his Berry catheter removed after ooze placed for urinary retention initially on 12/11/21. Patient followed up with Dr. Fowler after his emergency department visit on the and a larger Mongolian catheter was placed an 18 Mongolian and patient was instructed to leave his Berry catheter in until his follow-up appointment which was originally on December 22 and then later moved to January 06. Patient presented to the emergency department on 12/14/2021, I saw him and treated him for an acute UTI. Patient has a history of multi drug resistance and he got better after his antibiotics. Has been taking tamsulosin 0.4 mg and finasteride 5 mg nightly. Discussed with the patient that it is not a good idea to take out his Berry catheter without a plan or without adequate Urology coverage at the hospital today. He wishes to follow-up with Dr. Patel as he states he is seen her in the past in he has a good relationship with her. Patient is frustrated about his follow-up date being changed and wishes to go elsewhere, he does not have any complications to his urinary catheter today except for pain and discomfort. Was prescribed a lidocaine jelly to see if this would help with his comfort, he is not having any leaking from the site and wishes to keep it in the same position that it was changed to when he came here last time. His vital signs are within normal ranges, he denies any recent fever, suprapubic pressure or pain, chills, or any systemic symptoms of illness. He denies any nausea vomiting, denies any blood in his urine. I recommended that he call the urology office tomorrow and see if he can get in any sooner, a referral was placed for Dr. Patel if he chooses to call her to make an appointment tomorrow. And patient states understanding to these directions. Encouraged him to come back to the emergency department if he develops any symptoms of illness, urinary obstruction, pain, or other complication from his urinary catheter. Please see my consultation note with Dr. Fowler from his visit on 12/14/2021. Patient is appropriate and amenable to discharge home. Vital signs are stable on repeat examination is unremarkable. Patient has been informed of results. Patient has been given strict return to ER precautions for any new or worsening symptoms. Patient understands to follow up closely with outpatient providers as instructed. Patient understands plan and agrees to discharge home. All questions and concerns answered at this time. Discharge Plan Departure Patient Disposition: Home Clinical Impression: Berry catheter problem Qualifiers: Encounter type: initial encounter Qualified Code(s): T83.9XXA - Unspecified complication of genitourinary prosthetic device, implant and graft, initial encounter Instructions: How to Care for Your Berry Catheter -- Male, DI for Urinary Retention in Men Activity Restrictions/Additional Instructions: *You have been diagnosed BPH and previous UTI with urinary retention and requiring urinary catheter until follow-up with urologist. It is reassuring that you got better after your antibiotics in you have any symptoms of a urinary infection at this time. I have placed an internal consult for Armida lugo wrist go, you may call her to set up an appointment tomorrow, or keep your appointment on 01/06/[address] Gupta/Malcolm. I am sorry that this is uncomfortable and is still causing you annoyance, I wish I could take it out and you would be fine but I want to make sure that Urology evaluates you for urinary retention and directs your plan. Thank you for trusting us with your care, I am very sorry for your weight and I truly care about your discomfort. Please come back to the emergency department if your catheter is leaking, if you develop any fever or chills, abdominal pain, blood in your urine or signs of infection again. Please continue taking all of your medications as prescribed, I hope that you feel better soon. You can try some topical lidocaine gel if you are having burning pain, please use Tylenol as needed for discomfort and make sure you are taking your BPH medications. *What to do: *Please continue to take your regular medications as directed. [x ] New medication prescriptions sent to your pharmacy: [ [facility]] [ ] New medication written as a paper prescription [ ] No new medications given *Please follow up with your primary care provider in 2-3 days, call for an appointment. Let them know you were seen in the Emergency Department and that we asked that you be seen for follow-up. We will electronically transmit a record of today's note if your PCP is in our system *If you do not have a primary care provider please contact [phone] to establish care with one of the [facility] primary care providers. *Return to Emergency Department if you should have any new, worsening, or concerning symptoms, such as [fever greater than 101F, chills, worsening pain, persistent vomiting or other bothersome symptoms]. Prescriptions: New lidocaine HCl 2 % jelly 1 applic topical QD-BID PRN (Reason: catheter pain) Qty: 30 0RF No Action Pradaxa 150 mg capsule See Rx Instructions .ROUTE .COMPLEX Qty: 180 3RF Dose Instruction: Take 1 capsule (150 mg) by mouth 2 times daily Rx Instructions: Take 1 capsule (150 mg) by mouth 2 times daily losartan 25 mg tablet 25 mg PO BID Qty: 180 3RF spironolactone 25 mg tablet See Rx Instructions .ROUTE .COMPLEX Qty: 90 3RF Dose Instruction: Take 1 tablet (25 mg) by mouth daily Rx Instructions: Take 1 tablet (25 mg) by mouth daily nitrofurantoin monohyd/m-cryst 100 mg capsule 100 mg PO BID Qty: 28 0RF Rx Instructions: must administer with a meal/food tamsulosin 0.4 mg capsule See Rx Instructions .ROUTE .COMPLEX Qty: 90 3RF Dose Instruction: Take 1 capsule (0.4 mg) by mouth every morning Rx Instructions: Take 1 capsule (0.4 mg) by mouth every morning (DME) blood-glucose meter [OneTouch Verio Flex Start] Kit See Rx Instructions .ROUTE .COMPLEX Qty: 1 0RF Dose Instruction: Use as directed to monitor blood sugar Rx Instructions: Use as directed to monitor blood sugar metoprolol tartrate 100 mg tablet 100 mg PO BID finasteride 5 mg tablet 5 mg PO BEDTIME Qty: 90 3RF Referrals: Armida Patel MD [Family Provider] - Teja Gupta MD [Physician] - Boyd Fairchild DO [Primary Care Provider] - Visit Report Forms: Patient Portal/API <Amanda Albarado DO - Last Filed: 01/01/22 03:46> Cosign ED Attending Cosaraceliature Attestation: I was immediately available in the department for consultation. Documentation has been reviewed.
== END 2021-12-27 17:28 | disposition home or self-care (01) ==
PROVIDERS: Emergency Provider Nurse Practitioner Critical Care Medicine; Family Provider Urology; PCP Family Medicine
DX: T83.9XXA Unspecified complication of genitourinary prosthetic device, implant and graft, initial encounter (principal); R33.9 Retention of urine, unspecified
CPT/HCPCS: 99281

== ENCOUNTER → 2022-03-05 10:38 | Outpatient (CLI) | payer OTHER, SELFPAY ==
[2021-12-13 16:04] VITALS: BMI 34.9
== END ==
PROVIDERS: Family Provider Urology; PCP Family Medicine; Referring Provider Physician Assistant; Visit Provider Physician Assistant
DX: Z01.812 Encounter for preprocedural laboratory examination (principal)
CPT/HCPCS: 87077; 87086; 87186

== ENCOUNTER → 2022-03-24 11:17 | Outpatient (CLI) | payer OTHER, SELFPAY ==
[2021-12-13 16:04] VITALS: BMI 34.9
[2022-03-24 13:29] LABS: Erythrocyte Sedimentation Rate 17 MM/HR (0-15)
[2022-03-24 13:41] LABS: Hemoglobin A1C% w Est Avg Glu 6.4 % (4.0-6.0)
[2022-03-24 14:46] LABS: Alanine Aminotransferase 19 IU/L (<50); Albumin 3.7 g/dL (3.5-5.0); Albumin Globulin Ratio 1.1 (1.0-2.8); Alkaline Phosphatase 67 U/L (38-126); Aspartate Aminotransferase 23 IU/L (17-59); BUN Creatinine Ratio 16.4 (6-22); Bilirubin Total 1.2 mg/dL (0.2-1.3); Blood Urea Nitrogen 20 mg/dL (9-20); Calcium 9.5 mg/dL (8.4-10.2); Carbon Dioxide 23 mmol/L (22-32); Chloride 102 mmol/L (98-107); Estimated Glomerular Filt Rate 58 mL/min (>60); Globulin 3.4 g/dL (1.7-4.1); Glucose 203 mg/dL (80-110); HEMOLYSIS < 15 (0-50); Potassium 4.4 mmol/L (3.4-5.1); Sodium 137 mmol/L (137-145); Total Protein 7.1 g/dL (6.3-8.2); Uric Acid 7.6 mg/dL (3.5-8.5)
[2022-03-24 14:49] LABS: Microalbumin Urine Random 2.7 mg/dL (0-1.6)
[2022-03-24 14:51] LABS: Creatinine Urine Random 155.6 mg/dL; Microalbumi Creatinin Ratio Ur 17.3 ug/mg CR (<30)
== END ==
PROVIDERS: Family Provider Urology; PCP Family Medicine; Referring Provider Family Medicine; Visit Provider Family Medicine
DX: E11.621 Type 2 diabetes mellitus with foot ulcer (principal); M10.9 Gout, unspecified; L97.509 Non-pressure chronic ulcer of other part of unspecified foot with unspecified severity; L97.529 Non-pressure chronic ulcer of other part of left foot with unspecified severity
CPT/HCPCS: 36415; 80053; 82043; 82570; 83036; 84550; 85651

== ENCOUNTER → 2022-05-22 09:39 | Outpatient (CLI) | payer OTHER, SELFPAY ==
[2022-03-30 16:51] VITALS: BMI 34.9
== END ==
PROVIDERS: Family Provider Urology; PCP Family Medicine; Referring Provider Family Medicine; Visit Provider Family Medicine
DX: Z01.812 Encounter for preprocedural laboratory examination (principal)
CPT/HCPCS: 87077; 87086; 87186

== ENCOUNTER → 2022-10-05 13:18 | Outpatient (CLI) | payer OTHER, SELFPAY ==
[2022-03-30 16:51] VITALS: BMI 34.9
[2022-10-05 15:51] LABS: Alanine Aminotransferase 18 IU/L (<50); Albumin Globulin Ratio 1.2 (1.0-2.8); Alkaline Phosphatase 81 U/L (38-126); Aspartate Aminotransferase 24 IU/L (17-59); BUN Creatinine Ratio 19.5 (6-22); Blood Urea Nitrogen 22 mg/dL (9-20); Calcium 9.6 mg/dL (8.4-10.2); Carbon Dioxide 22 mmol/L (22-32); Chloride 105 mmol/L (98-107); Cholesterol 177 mg/dL (140-199); Estimated Glomerular Filt Rate > 60 mL/min (>60); Globulin 3.4 g/dL (1.7-4.1); Glucose 147 mg/dL (80-110); HDL Cholesterol 45 mg/dL (40-60); HEMOLYSIS < 15 (0-50); LDL Cholesterol Calculated 103 mg/dL (<100); Potassium 4.4 mmol/L (3.4-5.1); Sodium 137 mmol/L (137-145); Total Protein 7.4 g/dL (6.3-8.2); Triglycerides 147 mg/dL (35-150)
[2022-10-05 17:25] LABS: Creatinine Urine Random 92.1 mg/dL
[2022-10-05 17:29] LABS: Microalbumi Creatinin Ratio Ur 22.8 ug/mg CR (<30); Microalbumin Urine Random 2.1 mg/dL (0-1.6)
== END ==
PROVIDERS: Family Provider Urology; PCP Family Medicine; Referring Provider Family Medicine; Visit Provider Family Medicine
DX: E11.621 Type 2 diabetes mellitus with foot ulcer (principal); E78.5 Hyperlipidemia, unspecified; L97.509 Non-pressure chronic ulcer of other part of unspecified foot with unspecified severity; N13.8 Other obstructive and reflux uropathy; N40.1 Benign prostatic hyperplasia with lower urinary tract symptoms
CPT/HCPCS: 36415; 80053; 80061; 82043; 82570

== ENCOUNTER → 2022-11-19 14:25 | Outpatient (CLI) | payer OTHER, SELFPAY ==
[2022-03-30 16:51] VITALS: BMI 34.9
[2022-11-20 06:22] LABS: Labcorp Hemoglobin (Hb) A1c 6.1 % (4.8-5.6)
== END ==
PROVIDERS: Family Provider Urology; PCP Family Medicine; Referring Provider Family Medicine; Visit Provider Family Medicine
DX: E11.621 Type 2 diabetes mellitus with foot ulcer (principal); L97.509 Non-pressure chronic ulcer of other part of unspecified foot with unspecified severity
CPT/HCPCS: 36415; 83036

== ENCOUNTER → 2022-11-28 09:39 | Outpatient (CLI) | payer OTHER, SELFPAY ==
[2022-03-30 16:51] VITALS: BMI 34.9
== END ==
PROVIDERS: Family Provider Urology; PCP Family Medicine; Referring Provider Podiatrist; Visit Provider Surgery
DX: E11.621 Type 2 diabetes mellitus with foot ulcer (principal); L97.522 Non-pressure chronic ulcer of other part of left foot with fat layer exposed; L84 Corns and callosities; E11.42 Type 2 diabetes mellitus with diabetic polyneuropathy
CPT/HCPCS: 11043; 87070; 87077; 87186; 87205; 99213

== ENCOUNTER → 2022-11-28 10:18 | Outpatient (CLI) | payer OTHER, SELFPAY ==
[2022-03-30 16:51] VITALS: BMI 34.9
--- NOTE | 2022-11-28 10:20 | DI.RAD.S_ITS ---
PROCEDURE: XR FOOT LT MIN 3V INDICATIONS: Hullux ulcer TECHNIQUE: 3 views of the foot were acquired. COMPARISON: [facility], CR, XR FOOT RT MIN 3V, 04/26/2020, 21:21. [facility], CR, XR FOOT LT MIN 3V, 04/19/2020, 15:14. FINDINGS: Bones: Chronic appearance of severe erosions and partial subluxation of the great toe interphalangeal joint. Degenerative changes of the great toe metatarsal phalangeal joint. No fractures or dislocations. No suspicious bony lesions. Soft tissues: No tibiotalar joint effusion. Achilles tendon appears normal. Atherosclerotic vascular calcifications. IMPRESSION: No acute fractures. Chronic erosive changes of the great toe interphalangeal joint. If clinical concern for osteomyelitis, MRI is more sensitive than x-ray for early signs of infection. Dictated by: Nathan Goodwin M.D. on 11/28/2022 at 13:03 Approved by: Nathan Goodwin M.D. on 11/28/2022 at 13:14
== END ==
PROVIDERS: Family Provider Urology; PCP Family Medicine; Referring Provider Surgery; Visit Provider Surgery
DX: E11.621 Type 2 diabetes mellitus with foot ulcer (principal); L97.529 Non-pressure chronic ulcer of other part of left foot with unspecified severity
CPT/HCPCS: 73630

== ENCOUNTER → 2022-12-03 09:40 | Outpatient (CLI) | payer OTHER, SELFPAY ==
[2022-03-30 16:51] VITALS: BMI 34.9
== END ==
PROVIDERS: Family Provider Urology; PCP Family Medicine; Referring Provider Family Medicine; Visit Provider Surgery
DX: E11.621 Type 2 diabetes mellitus with foot ulcer (principal); L97.522 Non-pressure chronic ulcer of other part of left foot with fat layer exposed; L84 Corns and callosities; E11.40 Type 2 diabetes mellitus with diabetic neuropathy, unspecified
CPT/HCPCS: 11042; 99213

== ENCOUNTER → 2022-12-10 10:34 | Outpatient (CLI) | payer OTHER, SELFPAY ==
[2022-03-30 16:51] VITALS: BMI 34.9
== END ==
PROVIDERS: Family Provider Urology; PCP Family Medicine; Referring Provider Podiatrist; Visit Provider Surgery
DX: E11.621 Type 2 diabetes mellitus with foot ulcer (principal); L97.522 Non-pressure chronic ulcer of other part of left foot with fat layer exposed
CPT/HCPCS: 99213

== ENCOUNTER → 2022-12-13 15:46 | Outpatient (CLI) | payer OTHER, SELFPAY ==
[2022-03-30 16:51] VITALS: BMI 34.9
--- NOTE | 2022-12-13 15:47 | DI.NM.S_ITS ---
PROCEDURE: NM BONE 3 PHASE RADIOPHARMACEUTICAL: 21.4 mCi Tc-99m MDP IV. INDICATIONS: Chronic wound to left hallux TECHNIQUE: Multiple bone scintigrams were obtained after intravenous injection of Tc-99m MDP, including flow, blood pool, and delayed images centered to the region of interest. COMPARISON: [facility], CR, XR FOOT LT MIN 3V, 11/28/2022, 10:21. FINDINGS: Mild appearance of increased flow, pool and delayed uptake within the left 1st digit most prominent at the distal aspect of the metatarsal and proximal phalanx. Delayed increased uptake is present within the right 1st metatarsal and proximal phalanx as well as 2nd distal phalanx. There is equivocal appearance of likely increased flow and blood pool within the right 1st digit. Slight appearance of increased uptake on delayed images.. IMPRESSION: Increased flow blood pool and delayed images on the left suggestive of osteomyelitis. Equivocal findings of osteomyelitis on the right. Dictated by: Franchesca Penaloza M.D. on 12/14/2022 at 16:56 Transcribed by: JENNIFER on 12/14/2022 at 16:59 Approved by: Franchesca Penaloza M.D. on 12/20/2022 at 17:08
== END ==
PROVIDERS: Family Provider Urology; PCP Family Medicine; Referring Provider Surgery; Visit Provider Surgery
DX: E11.621 Type 2 diabetes mellitus with foot ulcer (principal); L97.529 Non-pressure chronic ulcer of other part of left foot with unspecified severity
CPT/HCPCS: 78315; A9503

== ENCOUNTER → 2022-12-19 10:28 | Outpatient (CLI) | payer OTHER, SELFPAY ==
[2022-03-30 16:51] VITALS: BMI 34.9
== END ==
PROVIDERS: Family Provider Urology; PCP Family Medicine; Referring Provider Podiatrist; Visit Provider Surgery
DX: L08.9 Local infection of the skin and subcutaneous tissue, unspecified (principal); E11.621 Type 2 diabetes mellitus with foot ulcer; L97.522 Non-pressure chronic ulcer of other part of left foot with fat layer exposed; L84 Corns and callosities; E11.40 Type 2 diabetes mellitus with diabetic neuropathy, unspecified
CPT/HCPCS: 11042; 36415; 80053; 85025; 85651; 86140; 99213

== ENCOUNTER → 2022-12-19 11:00 | Outpatient (CLI) | payer OTHER, SELFPAY ==
[2022-03-30 16:51] VITALS: BMI 34.9
[2022-12-19 11:38] LABS: Add Manual Diff / Slide Review NO; Basophils Absolute Auto 0 /uL (0-100); Basophils Percent Auto 0.5 % (0-2); Eosinophils Absolute Auto 200 /uL (0-450); Eosinophils Percent Auto 3.2 % (2-4); Hemoglobin 14.5 g/dL (13.5-17.5); Lymphocytes Absolute Auto 1200 /uL (1100-4500); Lymphocytes Percent Auto 19.7 % (25-40); Mean Corpuscular HGB Conc 34.6 % (30-36); Mean Corpuscular Hemoglobin 31.3 PG (26-34); Mean Corpuscular Volume 90.3 fL (80-100); Monocytes Absolute Auto 600 /uL (0-900); Monocytes Percent Auto 9.5 % (3-14); Neutrophils Absolute Auto 4100 /uL (1500-7000); Neutrophils Percent Auto 67.1 % (50-75); Platelet Count 227 X10^3/uL (150-400); Red Blood Cell Count 4.64 X10^6/uL (4.5-5.9); Red Cell Distribution Width 14.4 % (11.6-14.8); White Blood Cell Count 6.2 X10^3/uL (4.5-11.0)
[2022-12-19 11:53] LABS: Erythrocyte Sedimentation Rate 7 MM/HR (0-15)
[2022-12-19 12:49] LABS: Alanine Aminotransferase 20 IU/L (<50); Albumin 3.8 g/dL (3.5-5.0); Albumin Globulin Ratio 1.3 (1.0-2.8); Alkaline Phosphatase 52 U/L (38-126); Aspartate Aminotransferase 26 IU/L (17-59); BUN Creatinine Ratio 15.1 (6-22); Bilirubin Total 0.9 mg/dL (0.2-1.3); Blood Urea Nitrogen 16 mg/dL (9-20); C-Reactive Protein Quant 0.8 mg/dL (<1.0); Calcium 9.9 mg/dL (8.4-10.2); Carbon Dioxide 26 mmol/L (22-32); Chloride 104 mmol/L (98-107); Estimated Glomerular Filt Rate > 60 mL/min (>60); Glucose 156 mg/dL (80-110); HEMOLYSIS < 15 (0-50); Potassium 4.6 mmol/L (3.4-5.1); Sodium 137 mmol/L (137-145); Total Protein 6.8 g/dL (6.3-8.2)
== END ==
PROVIDERS: Family Provider Urology; PCP Family Medicine; Referring Provider Surgery; Visit Provider Surgery
DX: L08.9 Local infection of the skin and subcutaneous tissue, unspecified (principal)
CPT/HCPCS: 36415; 80053; 85025; 85651; 86140

== ENCOUNTER → 2022-12-26 09:59 | Outpatient (CLI) | payer OTHER, SELFPAY ==
[2022-03-30 16:51] VITALS: BMI 34.9
== END ==
PROVIDERS: Family Provider Urology; PCP Family Medicine; Referring Provider Podiatrist; Visit Provider Surgery
DX: E11.621 Type 2 diabetes mellitus with foot ulcer (principal); L97.522 Non-pressure chronic ulcer of other part of left foot with fat layer exposed; E11.42 Type 2 diabetes mellitus with diabetic polyneuropathy; L84 Corns and callosities; M86.172 Other acute osteomyelitis, left ankle and foot
CPT/HCPCS: 11042

== ENCOUNTER → 2023-01-02 10:21 | Outpatient (CLI) | payer OTHER, SELFPAY ==
[2022-03-30 16:51] VITALS: BMI 34.9
== END ==
PROVIDERS: Family Provider Urology; PCP Family Medicine; Referring Provider Podiatrist; Visit Provider Surgery
DX: E11.621 Type 2 diabetes mellitus with foot ulcer (principal); L97.522 Non-pressure chronic ulcer of other part of left foot with fat layer exposed; L84 Corns and callosities; E11.40 Type 2 diabetes mellitus with diabetic neuropathy, unspecified
CPT/HCPCS: 11042; 99212; 99213

== ENCOUNTER → 2023-01-09 10:16 | Outpatient (CLI) | payer OTHER, SELFPAY ==
[2022-03-30 16:51] VITALS: BMI 34.9
== END ==
PROVIDERS: Family Provider Urology; PCP Family Medicine; Referring Provider Podiatrist; Visit Provider Surgery
DX: E11.621 Type 2 diabetes mellitus with foot ulcer (principal); L97.522 Non-pressure chronic ulcer of other part of left foot with fat layer exposed; M86.172 Other acute osteomyelitis, left ankle and foot; E11.40 Type 2 diabetes mellitus with diabetic neuropathy, unspecified
CPT/HCPCS: 11042; 99213

== ENCOUNTER → 2023-01-15 14:09 | Outpatient (CLI) | payer OTHER, SELFPAY ==
[2022-03-30 16:51] VITALS: BMI 34.9
--- NOTE | 2023-01-15 14:11 | DI.US.S_ITS ---
PROCEDURE: US ARTERIAL DUPLEX LE LT INDICATIONS: HALLUS ULCER TECHNIQUE: Color and pulse Doppler interrogation was performed of the left lower extremity arterial system, with image documentation. COMPARISON: None. FINDINGS: Common femoral artery: 67 cm/sec, with biphasic flow. Deep femoral artery: 36 cm/sec, with biphasic flow. Proximal superficial femoral artery: 78 cm/sec, with biphasic flow. Mid superficial femoral artery: 59 cm/sec, with biphasic flow. Distal superficial femoral artery: 68 cm/sec, with biphasic flow. Popliteal artery: 44 cm/sec, with biphasic flow. Posterior tibial artery: 36 cm/sec, with biphasic flow. Anterior tibial artery/dorsalis pedis: 79 cm/sec, with monophasic flow. Etienne-scale imaging description: Mild diffuse plaque IMPRESSION: 1. No significant outflow stenosis. 2. 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 Dictated by: Jovan Oneal M.D. on 01/15/2023 at 15:58 Approved by: Jovan Oneal M.D. on 01/15/2023 at 15:59
== END ==
PROVIDERS: Family Provider Urology; PCP Family Medicine; Referring Provider Surgery; Visit Provider Surgery
DX: E11.621 Type 2 diabetes mellitus with foot ulcer (principal)
CPT/HCPCS: 93926

== ENCOUNTER → 2023-01-16 12:52 | Outpatient (CLI) | payer OTHER, SELFPAY ==
[2022-03-30 16:51] VITALS: BMI 34.9
== END ==
PROVIDERS: Family Provider Urology; PCP Family Medicine; Referring Provider Podiatrist; Visit Provider Surgery
DX: E11.621 Type 2 diabetes mellitus with foot ulcer (principal); L97.522 Non-pressure chronic ulcer of other part of left foot with fat layer exposed; E11.42 Type 2 diabetes mellitus with diabetic polyneuropathy; M86.172 Other acute osteomyelitis, left ankle and foot
CPT/HCPCS: 11042; 99213

== ENCOUNTER → 2023-01-23 11:54 | Outpatient (CLI) | payer OTHER, SELFPAY ==
[2022-03-30 16:51] VITALS: BMI 34.9
--- NOTE | 2023-01-23 12:00 | DI.RAD.S_ITS ---
PROCEDURE: XR CHEST 2V INDICATIONS: evaluate for hyperbaric oxygen TECHNIQUE: 2 views of the chest were acquired. COMPARISON: [facility], CR, XR CHEST 1V, 09/15/2021, 21:40. [facility], CR, XR CHEST 1V, 04/26/2020, 20:24. FINDINGS: Surgical changes and devices: Left chest wall pulse generator with defibrillator leads. Lungs and pleura: Possible tiny granulomas. No dense consolidation. Possible basal scarring/atelectasis. No pleural effusions. On lateral view, no lower lung retrocardiac consolidation noted or layering pleural effusion. Mediastinum: Borderline cardiomegaly. Bones and chest wall: Degenerative changes. IMPRESSION: No acute consolidation or pleural effusion. Possible basal scarring/atelectasis. Borderline cardiomegaly. Dictated by: Marco Antonio Palencia M.D. on 01/23/2023 at 16:42 Approved by: Marco Antonio Palencia M.D. on 01/23/2023 at 16:43
== END ==
PROVIDERS: Family Provider Urology; PCP Family Medicine; Referring Provider Surgery; Visit Provider Surgery
DX: E11.621 Type 2 diabetes mellitus with foot ulcer (principal); L97.509 Non-pressure chronic ulcer of other part of unspecified foot with unspecified severity
CPT/HCPCS: 71046

== ENCOUNTER → 2023-01-24 11:05 | Outpatient (CLI) | payer OTHER, SELFPAY ==
[2022-03-30 16:51] VITALS: BMI 34.9
== END ==
PROVIDERS: Family Provider Urology; PCP Family Medicine; Referring Provider Podiatrist; Visit Provider Surgery
DX: L97.522 Non-pressure chronic ulcer of other part of left foot with fat layer exposed (principal); E11.621 Type 2 diabetes mellitus with foot ulcer; E11.42 Type 2 diabetes mellitus with diabetic polyneuropathy; M86.172 Other acute osteomyelitis, left ankle and foot; I73.9 Peripheral vascular disease, unspecified; Z79.01 Long term (current) use of anticoagulants; E11.40 Type 2 diabetes mellitus with diabetic neuropathy, unspecified; L84 Corns and callosities
CPT/HCPCS: 11042; 99183; G0277

== ENCOUNTER → 2023-01-25 13:33 | Outpatient (CLI) | payer OTHER, SELFPAY ==
[2022-03-30 16:51] VITALS: BMI 34.9
== END ==
PROVIDERS: Family Provider Urology; PCP Family Medicine; Referring Provider Podiatrist; Visit Provider Physician Assistant
DX: L97.522 Non-pressure chronic ulcer of other part of left foot with fat layer exposed (principal); E11.621 Type 2 diabetes mellitus with foot ulcer; E11.42 Type 2 diabetes mellitus with diabetic polyneuropathy; M86.172 Other acute osteomyelitis, left ankle and foot; I73.9 Peripheral vascular disease, unspecified
CPT/HCPCS: 99183; G0277

== ENCOUNTER → 2023-01-28 13:47 | Outpatient (CLI) | payer OTHER, SELFPAY ==
[2022-03-30 16:51] VITALS: BMI 34.9
== END ==
PROVIDERS: Family Provider Urology; PCP Family Medicine; Referring Provider Podiatrist; Visit Provider Surgery
DX: E11.621 Type 2 diabetes mellitus with foot ulcer (principal); L97.522 Non-pressure chronic ulcer of other part of left foot with fat layer exposed; E11.42 Type 2 diabetes mellitus with diabetic polyneuropathy; M86.172 Other acute osteomyelitis, left ankle and foot; I73.9 Peripheral vascular disease, unspecified
CPT/HCPCS: 99183; G0277

== ENCOUNTER → 2023-01-29 13:27 | Outpatient (CLI) | payer OTHER, SELFPAY ==
[2022-03-30 16:51] VITALS: BMI 34.9
== END ==
PROVIDERS: Family Provider Urology; PCP Family Medicine; Referring Provider Podiatrist; Visit Provider Surgery
DX: E11.621 Type 2 diabetes mellitus with foot ulcer (principal); L97.522 Non-pressure chronic ulcer of other part of left foot with fat layer exposed; E11.42 Type 2 diabetes mellitus with diabetic polyneuropathy; M86.172 Other acute osteomyelitis, left ankle and foot; E11.51 Type 2 diabetes mellitus with diabetic peripheral angiopathy without gangrene
CPT/HCPCS: 99183; G0277

== ENCOUNTER → 2023-01-30 13:47 | Outpatient (CLI) | payer OTHER, SELFPAY ==
[2022-03-30 16:51] VITALS: BMI 34.9
== END ==
PROVIDERS: Family Provider Urology; PCP Family Medicine; Referring Provider Podiatrist; Visit Provider Surgery
DX: L97.522 Non-pressure chronic ulcer of other part of left foot with fat layer exposed (principal); E11.621 Type 2 diabetes mellitus with foot ulcer; E11.42 Type 2 diabetes mellitus with diabetic polyneuropathy; M86.172 Other acute osteomyelitis, left ankle and foot; I73.9 Peripheral vascular disease, unspecified
CPT/HCPCS: 99183; G0277

== ENCOUNTER → 2023-01-31 10:29 | Outpatient (CLI) | payer OTHER, SELFPAY ==
[2022-03-30 16:51] VITALS: BMI 34.9
== END ==
PROVIDERS: Family Provider Urology; PCP Family Medicine; Referring Provider Podiatrist; Visit Provider Surgery
DX: L97.522 Non-pressure chronic ulcer of other part of left foot with fat layer exposed (principal); E11.621 Type 2 diabetes mellitus with foot ulcer; E11.42 Type 2 diabetes mellitus with diabetic polyneuropathy; M86.172 Other acute osteomyelitis, left ankle and foot; I73.9 Peripheral vascular disease, unspecified; L84 Corns and callosities
CPT/HCPCS: 11042; 99183; 99213; G0277

== ENCOUNTER → 2023-02-01 13:25 | Outpatient (CLI) | payer OTHER, SELFPAY ==
[2022-03-30 16:51] VITALS: BMI 34.9
== END ==
PROVIDERS: Family Provider Urology; PCP Family Medicine; Referring Provider Podiatrist; Visit Provider Physician Assistant
DX: L97.522 Non-pressure chronic ulcer of other part of left foot with fat layer exposed (principal); E11.621 Type 2 diabetes mellitus with foot ulcer; E11.42 Type 2 diabetes mellitus with diabetic polyneuropathy; M86.172 Other acute osteomyelitis, left ankle and foot; I73.9 Peripheral vascular disease, unspecified
CPT/HCPCS: 99183; G0277

== ENCOUNTER → 2023-02-04 14:18 | Outpatient (CLI) | payer OTHER, SELFPAY ==
[2022-03-30 16:51] VITALS: BMI 34.9
== END ==
PROVIDERS: Family Provider Urology; PCP Family Medicine; Referring Provider Podiatrist; Visit Provider Surgery
DX: L97.522 Non-pressure chronic ulcer of other part of left foot with fat layer exposed (principal); E11.621 Type 2 diabetes mellitus with foot ulcer; E11.42 Type 2 diabetes mellitus with diabetic polyneuropathy; M86.172 Other acute osteomyelitis, left ankle and foot; I73.9 Peripheral vascular disease, unspecified
CPT/HCPCS: 99183; G0277

== ENCOUNTER → 2023-02-05 14:11 | Outpatient (CLI) | payer OTHER, SELFPAY ==
[2022-03-30 16:51] VITALS: BMI 34.9
== END ==
PROVIDERS: Family Provider Urology; PCP Family Medicine; Referring Provider Podiatrist; Visit Provider Surgery
DX: L97.522 Non-pressure chronic ulcer of other part of left foot with fat layer exposed (principal); E11.621 Type 2 diabetes mellitus with foot ulcer; E11.42 Type 2 diabetes mellitus with diabetic polyneuropathy; M86.172 Other acute osteomyelitis, left ankle and foot; I73.9 Peripheral vascular disease, unspecified
CPT/HCPCS: 99183; G0277

== ENCOUNTER → 2023-02-06 14:10 | Outpatient (CLI) | payer OTHER, SELFPAY ==
[2022-03-30 16:51] VITALS: BMI 34.9
== END ==
PROVIDERS: Family Provider Urology; PCP Family Medicine; Referring Provider Podiatrist; Visit Provider Surgery
DX: L97.522 Non-pressure chronic ulcer of other part of left foot with fat layer exposed (principal); E11.621 Type 2 diabetes mellitus with foot ulcer; E11.42 Type 2 diabetes mellitus with diabetic polyneuropathy; M86.172 Other acute osteomyelitis, left ankle and foot; I73.9 Peripheral vascular disease, unspecified
CPT/HCPCS: 99183; G0277

== ENCOUNTER → 2023-02-07 09:59 | Outpatient (CLI) | payer OTHER, SELFPAY ==
[2022-03-30 16:51] VITALS: BMI 34.9
== END ==
PROVIDERS: Family Provider Urology; PCP Family Medicine; Referring Provider Podiatrist; Visit Provider Surgery
DX: L97.522 Non-pressure chronic ulcer of other part of left foot with fat layer exposed (principal); E11.621 Type 2 diabetes mellitus with foot ulcer; E11.42 Type 2 diabetes mellitus with diabetic polyneuropathy; M86.172 Other acute osteomyelitis, left ankle and foot; I73.9 Peripheral vascular disease, unspecified; L84 Corns and callosities; Z79.01 Long term (current) use of anticoagulants
CPT/HCPCS: 11042; 99183; G0277

== ENCOUNTER → 2023-02-08 13:33 | Outpatient (CLI) | payer OTHER, SELFPAY ==
[2022-03-30 16:51] VITALS: BMI 34.9
== END ==
PROVIDERS: Family Provider Urology; PCP Family Medicine; Referring Provider Podiatrist; Visit Provider Physician Assistant
DX: L97.522 Non-pressure chronic ulcer of other part of left foot with fat layer exposed (principal); E11.621 Type 2 diabetes mellitus with foot ulcer; E11.42 Type 2 diabetes mellitus with diabetic polyneuropathy; M86.172 Other acute osteomyelitis, left ankle and foot; I73.9 Peripheral vascular disease, unspecified
CPT/HCPCS: 99183; G0277

== ENCOUNTER → 2023-02-15 13:15 | Outpatient (CLI) | payer OTHER, SELFPAY ==
[2022-03-30 16:51] VITALS: BMI 34.9
== END ==
PROVIDERS: Family Provider Urology; PCP Family Medicine; Referring Provider Podiatrist; Visit Provider Physician Assistant
DX: L97.522 Non-pressure chronic ulcer of other part of left foot with fat layer exposed (principal); E11.621 Type 2 diabetes mellitus with foot ulcer; E11.42 Type 2 diabetes mellitus with diabetic polyneuropathy; M86.172 Other acute osteomyelitis, left ankle and foot; I73.9 Peripheral vascular disease, unspecified
CPT/HCPCS: 99183; G0277

== ENCOUNTER → 2023-02-18 13:26 | Outpatient (CLI) | payer OTHER, SELFPAY ==
[2022-03-30 16:51] VITALS: BMI 34.9
== END ==
PROVIDERS: Family Provider Urology; PCP Family Medicine; Referring Provider Podiatrist; Visit Provider Surgery
DX: L97.522 Non-pressure chronic ulcer of other part of left foot with fat layer exposed (principal); E11.621 Type 2 diabetes mellitus with foot ulcer; E11.42 Type 2 diabetes mellitus with diabetic polyneuropathy; M86.172 Other acute osteomyelitis, left ankle and foot; E11.51 Type 2 diabetes mellitus with diabetic peripheral angiopathy without gangrene
CPT/HCPCS: 11042; 99183; 99212; G0277

== ENCOUNTER → 2023-02-19 13:53 | Outpatient (CLI) | payer OTHER, SELFPAY ==
[2022-03-30 16:51] VITALS: BMI 34.9
== END ==
PROVIDERS: Family Provider Urology; PCP Family Medicine; Referring Provider Podiatrist; Visit Provider Surgery
DX: L97.522 Non-pressure chronic ulcer of other part of left foot with fat layer exposed (principal); E11.621 Type 2 diabetes mellitus with foot ulcer; E11.42 Type 2 diabetes mellitus with diabetic polyneuropathy; M86.172 Other acute osteomyelitis, left ankle and foot; I73.9 Peripheral vascular disease, unspecified
CPT/HCPCS: 99183; G0277

== ENCOUNTER → 2023-02-20 13:34 | Outpatient (CLI) | payer OTHER, SELFPAY ==
[2022-03-30 16:51] VITALS: BMI 34.9
== END ==
PROVIDERS: Family Provider Urology; PCP Family Medicine; Referring Provider Podiatrist; Visit Provider Surgery
DX: L97.522 Non-pressure chronic ulcer of other part of left foot with fat layer exposed (principal); E11.621 Type 2 diabetes mellitus with foot ulcer; E11.42 Type 2 diabetes mellitus with diabetic polyneuropathy; M86.172 Other acute osteomyelitis, left ankle and foot; I73.9 Peripheral vascular disease, unspecified
CPT/HCPCS: 99183; G0277

== ENCOUNTER → 2023-02-21 14:09 | Outpatient (CLI) | payer OTHER, SELFPAY ==
[2022-03-30 16:51] VITALS: BMI 34.9
== END ==
PROVIDERS: Family Provider Urology; PCP Family Medicine; Referring Provider Podiatrist; Visit Provider Surgery
DX: L97.522 Non-pressure chronic ulcer of other part of left foot with fat layer exposed (principal); E11.621 Type 2 diabetes mellitus with foot ulcer; E11.42 Type 2 diabetes mellitus with diabetic polyneuropathy; M86.172 Other acute osteomyelitis, left ankle and foot; I73.9 Peripheral vascular disease, unspecified
CPT/HCPCS: 99183; G0277

== ENCOUNTER → 2023-02-22 14:29 | Outpatient (CLI) | payer OTHER, SELFPAY ==
[2022-03-30 16:51] VITALS: BMI 34.9
== END ==
PROVIDERS: Family Provider Urology; PCP Family Medicine; Referring Provider Podiatrist; Visit Provider Surgery
DX: L97.522 Non-pressure chronic ulcer of other part of left foot with fat layer exposed (principal); E11.621 Type 2 diabetes mellitus with foot ulcer; E11.42 Type 2 diabetes mellitus with diabetic polyneuropathy; M86.172 Other acute osteomyelitis, left ankle and foot; I73.9 Peripheral vascular disease, unspecified
CPT/HCPCS: 99183; G0277

== ENCOUNTER → 2023-02-25 14:12 | Outpatient (CLI) | payer OTHER, SELFPAY ==
[2022-03-30 16:51] VITALS: BMI 34.9
== END ==
PROVIDERS: Family Provider Urology; PCP Family Medicine; Referring Provider Podiatrist; Visit Provider Surgery
DX: L97.522 Non-pressure chronic ulcer of other part of left foot with fat layer exposed (principal); E11.621 Type 2 diabetes mellitus with foot ulcer; E11.42 Type 2 diabetes mellitus with diabetic polyneuropathy; M86.172 Other acute osteomyelitis, left ankle and foot; I73.9 Peripheral vascular disease, unspecified
CPT/HCPCS: 99183; G0277

== ENCOUNTER → 2023-02-26 13:32 | Outpatient (CLI) | payer OTHER, SELFPAY ==
[2022-03-30 16:51] VITALS: BMI 34.9
== END ==
PROVIDERS: Family Provider Urology; PCP Family Medicine; Referring Provider Podiatrist; Visit Provider Surgery
DX: L97.522 Non-pressure chronic ulcer of other part of left foot with fat layer exposed (principal); E11.621 Type 2 diabetes mellitus with foot ulcer; E11.42 Type 2 diabetes mellitus with diabetic polyneuropathy; M86.172 Other acute osteomyelitis, left ankle and foot; I73.9 Peripheral vascular disease, unspecified; L84 Corns and callosities; E11.40 Type 2 diabetes mellitus with diabetic neuropathy, unspecified; Z79.01 Long term (current) use of anticoagulants
CPT/HCPCS: 11042; 99183; G0277

== ENCOUNTER → 2023-02-27 14:02 | Outpatient (CLI) | payer OTHER, SELFPAY ==
[2022-03-30 16:51] VITALS: BMI 34.9
== END ==
PROVIDERS: Family Provider Urology; PCP Family Medicine; Referring Provider Podiatrist; Visit Provider Surgery
DX: L97.522 Non-pressure chronic ulcer of other part of left foot with fat layer exposed (principal); E11.621 Type 2 diabetes mellitus with foot ulcer; E11.42 Type 2 diabetes mellitus with diabetic polyneuropathy; M86.172 Other acute osteomyelitis, left ankle and foot; I73.9 Peripheral vascular disease, unspecified
CPT/HCPCS: 99183; G0277

== ENCOUNTER → 2023-03-01 14:15 | Outpatient (CLI) | payer OTHER, SELFPAY ==
[2022-03-30 16:51] VITALS: BMI 34.9
== END ==
PROVIDERS: Family Provider Urology; PCP Family Medicine; Referring Provider Podiatrist; Visit Provider Physician Assistant
DX: L97.522 Non-pressure chronic ulcer of other part of left foot with fat layer exposed (principal); E11.621 Type 2 diabetes mellitus with foot ulcer; E11.42 Type 2 diabetes mellitus with diabetic polyneuropathy; M86.172 Other acute osteomyelitis, left ankle and foot; I73.9 Peripheral vascular disease, unspecified
CPT/HCPCS: 99183; G0277

== ENCOUNTER → 2023-03-04 13:38 | Outpatient (CLI) | payer OTHER, SELFPAY ==
[2022-03-30 16:51] VITALS: BMI 34.9
== END ==
PROVIDERS: Family Provider Urology; PCP Family Medicine; Referring Provider Podiatrist; Visit Provider Surgery
DX: L97.522 Non-pressure chronic ulcer of other part of left foot with fat layer exposed (principal); E11.621 Type 2 diabetes mellitus with foot ulcer; E11.42 Type 2 diabetes mellitus with diabetic polyneuropathy; M86.172 Other acute osteomyelitis, left ankle and foot; I73.9 Peripheral vascular disease, unspecified
CPT/HCPCS: 99183; G0277

== ENCOUNTER → 2023-03-05 15:21 | Outpatient (CLI) | payer OTHER, SELFPAY ==
[2022-03-30 16:51] VITALS: BMI 34.9
== END ==
PROVIDERS: Family Provider Urology; PCP Family Medicine; Referring Provider Family Medicine; Visit Provider Surgery
DX: L97.522 Non-pressure chronic ulcer of other part of left foot with fat layer exposed (principal); E11.621 Type 2 diabetes mellitus with foot ulcer; E11.42 Type 2 diabetes mellitus with diabetic polyneuropathy; M86.172 Other acute osteomyelitis, left ankle and foot; I73.9 Peripheral vascular disease, unspecified
CPT/HCPCS: 99183; G0277

== ENCOUNTER → 2023-03-06 13:00 | Outpatient (CLI) | payer OTHER, SELFPAY ==
[2022-03-30 16:51] VITALS: BMI 34.9
== END ==
PROVIDERS: Family Provider Urology; PCP Family Medicine; Referring Provider Podiatrist; Visit Provider Surgery
DX: L97.522 Non-pressure chronic ulcer of other part of left foot with fat layer exposed (principal); E11.621 Type 2 diabetes mellitus with foot ulcer; E11.42 Type 2 diabetes mellitus with diabetic polyneuropathy; M86.172 Other acute osteomyelitis, left ankle and foot; I73.9 Peripheral vascular disease, unspecified
CPT/HCPCS: 11042; 99183; 99214; G0277

== ENCOUNTER → 2023-03-07 15:06 | Outpatient (CLI) | payer OTHER, SELFPAY ==
[2022-03-30 16:51] VITALS: BMI 34.9
== END ==
PROVIDERS: Family Provider Urology; PCP Family Medicine; Referring Provider Podiatrist; Visit Provider Surgery
DX: L97.522 Non-pressure chronic ulcer of other part of left foot with fat layer exposed (principal); E11.621 Type 2 diabetes mellitus with foot ulcer; E11.42 Type 2 diabetes mellitus with diabetic polyneuropathy; M86.172 Other acute osteomyelitis, left ankle and foot; I73.9 Peripheral vascular disease, unspecified
CPT/HCPCS: 99183; G0277

== ENCOUNTER → 2023-03-08 13:03 | Outpatient (CLI) | payer OTHER, SELFPAY ==
[2022-03-30 16:51] VITALS: BMI 34.9
== END ==
PROVIDERS: Family Provider Urology; PCP Family Medicine; Referring Provider Podiatrist; Visit Provider Surgery
DX: L97.522 Non-pressure chronic ulcer of other part of left foot with fat layer exposed (principal); E11.621 Type 2 diabetes mellitus with foot ulcer; E11.42 Type 2 diabetes mellitus with diabetic polyneuropathy; M86.172 Other acute osteomyelitis, left ankle and foot; I73.9 Peripheral vascular disease, unspecified
CPT/HCPCS: 99183; G0277

== ENCOUNTER → 2023-03-11 13:42 | Outpatient (CLI) | payer OTHER, SELFPAY ==
[2022-03-30 16:51] VITALS: BMI 34.9
== END ==
PROVIDERS: Family Provider Urology; PCP Family Medicine; Referring Provider Podiatrist; Visit Provider Surgery
DX: L97.522 Non-pressure chronic ulcer of other part of left foot with fat layer exposed (principal); E11.621 Type 2 diabetes mellitus with foot ulcer; E11.42 Type 2 diabetes mellitus with diabetic polyneuropathy; M86.172 Other acute osteomyelitis, left ankle and foot; I73.9 Peripheral vascular disease, unspecified
CPT/HCPCS: 99183; G0277

== ENCOUNTER → 2023-03-12 14:45 | Outpatient (CLI) | payer OTHER, SELFPAY ==
[2022-03-30 16:51] VITALS: BMI 34.9
== END ==
PROVIDERS: Family Provider Urology; PCP Family Medicine; Referring Provider Podiatrist; Visit Provider Surgery
DX: L97.522 Non-pressure chronic ulcer of other part of left foot with fat layer exposed (principal); E11.621 Type 2 diabetes mellitus with foot ulcer; E11.42 Type 2 diabetes mellitus with diabetic polyneuropathy; M86.172 Other acute osteomyelitis, left ankle and foot; I73.9 Peripheral vascular disease, unspecified
CPT/HCPCS: 99183; G0277

== ENCOUNTER → 2023-03-13 13:44 | Outpatient (CLI) | payer OTHER, SELFPAY ==
[2022-03-30 16:51] VITALS: BMI 34.9
== END ==
PROVIDERS: Family Provider Urology; PCP Family Medicine; Referring Provider Podiatrist; Visit Provider Surgery
DX: L97.522 Non-pressure chronic ulcer of other part of left foot with fat layer exposed (principal); E11.621 Type 2 diabetes mellitus with foot ulcer; E11.42 Type 2 diabetes mellitus with diabetic polyneuropathy; M86.172 Other acute osteomyelitis, left ankle and foot; I73.9 Peripheral vascular disease, unspecified
CPT/HCPCS: 11042; 99183; 99214; G0277

== ENCOUNTER → 2023-03-20 10:13 | Outpatient (CLI) | payer OTHER, SELFPAY ==
[2022-03-30 16:51] VITALS: BMI 34.9
== END ==
PROVIDERS: Family Provider Urology; PCP Family Medicine; Referring Provider Podiatrist; Visit Provider Surgery
DX: E11.621 Type 2 diabetes mellitus with foot ulcer (principal); L97.522 Non-pressure chronic ulcer of other part of left foot with fat layer exposed; M86.172 Other acute osteomyelitis, left ankle and foot; L84 Corns and callosities; E11.40 Type 2 diabetes mellitus with diabetic neuropathy, unspecified; E11.51 Type 2 diabetes mellitus with diabetic peripheral angiopathy without gangrene
CPT/HCPCS: 99213

== ENCOUNTER → 2023-03-27 09:51 | Outpatient (CLI) | payer OTHER, SELFPAY ==
[2022-03-30 16:51] VITALS: BMI 34.9
== END ==
PROVIDERS: Family Provider Urology; PCP Family Medicine; Referring Provider Podiatrist; Visit Provider Surgery
DX: E11.628 Type 2 diabetes mellitus with other skin complications (principal); Z86.31 Personal history of diabetic foot ulcer
CPT/HCPCS: 99212; 99213

== ENCOUNTER → 2023-06-11 13:44 | Outpatient (CLI) | payer OTHER, SELFPAY ==
[2022-03-30 16:51] VITALS: BMI 34.9
[2023-06-11 14:50] LABS: Alanine Aminotransferase 19 IU/L (<50); Albumin Globulin Ratio 1.3 (1.0-2.8); Alkaline Phosphatase 54 U/L (38-126); Aspartate Aminotransferase 26 IU/L (17-59); BUN Creatinine Ratio 17.9 (6-22); Bilirubin Total 0.9 mg/dL (0.2-1.3); Blood Urea Nitrogen 22 mg/dL (9-20); Calcium 10.3 mg/dL (8.4-10.2); Carbon Dioxide 30 mmol/L (22-32); Chloride 100 mmol/L (98-107); Estimated Glomerular Filt Rate 57 mL/min (>60); Globulin 3.2 g/dL (1.7-4.1); Glucose 107 mg/dL (80-110); HEMOLYSIS < 15 (0-50); Sodium 138 mmol/L (137-145); Total Protein 7.2 g/dL (6.3-8.2)
== END ==
LOC: LAB 13:45
PROVIDERS: PCP Family Medicine; Referring Provider Family Medicine; Visit Provider Family Medicine
DX: E11.9 Type 2 diabetes mellitus without complications (principal); I10 Essential (primary) hypertension
CPT/HCPCS: 36415; 80053; 83036

== ENCOUNTER → 2023-06-25 16:16 | Outpatient (CLI) | payer OTHER, SELFPAY ==
[2022-03-30 16:51] VITALS: BMI 34.9
== END ==
PROVIDERS: PCP Family Medicine; Visit Provider Family Medicine
DX: N39.0 Urinary tract infection, site not specified (principal)
CPT/HCPCS: 87077; 87086; 87186

== ENCOUNTER → 2023-08-30 07:54 | Outpatient (CLI) | payer OTHER, SELFPAY ==
[2022-03-30 16:51] VITALS: BMI 34.9
--- NOTE | 2023-08-30 07:54 | DI.ECHO.S_ITS ---
[place] +---------+ [facility] +---------+ : : [address] : : : : [id number] : : : : Phone: [phone]+ Echocardiogram Report + + :Name: REYNALDO JORDAN Study Date: 08/30/2023 Height: 67 in : :[facility] ReadingLocation: Weight: 190 lb : : Gender: Male BSA: 2.0 m2 : :: 1935 Age: 88 yrs BP: 117/79 mmHg: :Reason For Study: CHRONIC ATRIAL FIBRILLATION : :Ordering Physician: MARIO, : :ROBERTO Performed By: Sebastian Knox : :Referring: ROBERTO MARTIN : + + Interpretation Summary The patient was in atrial fibrillation with heart rates between 61-96 bpm during the exam. Chronic A-fib. The left ventricle is normal in size. The ejection fraction is estimated to be 50-55%. No significant change in LVEF from the previous study. The right ventricle is normal in size and function. There is a pacemaker lead in the right ventricle. There is mild to moderate mitral regurgitation. Compared to the prior echo study, there has been an increase in the severity of mitral regurgitation. There is mild aortic regurgitation. Compared to the prior echo study, there has been no change in the severity of aortic regurgitation. There is mild to moderate tricuspid regurgitation. Compared to the prior echo exam, there has been an increase in TR severity. Previously mild TR. The right ventricular systolic pressure is estimated to be at least 21.9 mmHg based on an estimated right atrial pressure of 3 mm Hg. The ascending aorta is mildly enlarged. 3.9 cm in diameter. Previously 3.8 cm Procedure: A two-dimensional transthoracic echocardiogram with color flow and Doppler was performed. The study quality was technically adequate. Comparison is made with the echocardiogram of 02/14/2020. The patient was in atrial fibrillation with heart rates between 61-96 bpm during the exam. Left Ventricle: The left ventricle is normal in size. There is mild-moderate concentric left ventricular hypertrophy. There is no thrombus. The ejection fraction is estimated to be 50-55%. There are no focal wall motion abnormalities. Diastolic function could not be accurately assessed due to atrial fibrillation. E/E' med: 16.0. Right Ventricle: The right ventricle is normal in size and function. There is a pacemaker lead in the right ventricle. Atria: The left atrium is severely dilated. The left atrium has remained unchanged in size since the prior echo exam. The right atrium is mildly dilated. There is a catheter/pacemaker lead seen in the right atrium. The interatrial septum grossly appears intact with no obvious evidence for an atrial septal defect. Mitral Valve: There is mild mitral annular calcification. There is no evidence of mitral valve prolapse. There is no mitral valve stenosis. There is mild to moderate mitral regurgitation. Compared to the prior echo study, there has been an increase in the severity of mitral regurgitation. Aortic Valve: The aortic valve is trileaflet. The aortic valve opens well. There is no aortic valve stenosis. There is mild aortic regurgitation. Compared to the prior echo study, there has been no change in the severity of aortic regurgitation. Tricuspid Valve: The tricuspid valve is not well visualized, but is grossly normal. There is no tricuspid stenosis. There is mild to moderate tricuspid regurgitation. The right ventricular systolic pressure is estimated to be at least 21.9 mmHg based on an estimated right atrial pressure of 3 mm Hg. Compared to the prior echo exam, there has been an increase in TR severity. Pulmonic Valve: The pulmonic valve is not well visualized. There is no pulmonic valvular stenosis. There is no pulmonic valvular regurgitation. Great Vessels: The aortic root is normal size. The ascending aorta is mildly enlarged. The IVC is of normal diameter and collapses greater than 50% with a sniff. This suggests a low right atrial pressure of 3 mm Hg. Pericardium/ Pleura There is no pericardial effusion. There is no pleural effusion. MMode/2D Measurements & Calculations LVIDd: 5.2 cm LVOT diam: 2.3 cm LVIDs: 3.5 cm Ao root diam: 3.9 cm FS: 32.6 % asc Aorta Diam: 3.9 cm IVSd: 1.4 cm Ao Arch Diam (Prox Trans): 3.0 cm LVPWd: 1.3 cm LV barr. diameter/BSA (cm/m^2): 2.6 LV sys. diameter/BSA (cm/m^2): 1.8 LA A2 area: 40.9 cm2 RA long axis: 5.1 cm LA A4 area: 40.6 cm2 RA area: 21.0 cm2 LA length (vol): 7.7 cm RA vol: 73.9 ml LA vol: 184.1 ml RA : 37.4 ml/m2 LA vol index: 93.0 ml/m2 IVC diam: 1.4 cm RVD1 (basal): 3.9 cm RVD2 (mid): 3.7 cm TAPSE: 2.1 cm Doppler Measurements & Calculations Ao V2 max: 124.3 cm/sec LVOT Max Omar: 69.5 cm/sec Ao V2 mean: 88.2 cm/sec LV V1 max P.9 mmHg Ao max P.2 mmHg LV V1 VTI: 15.8 cm Ao mean P.4 mmHg SUDHIR(I,D): 2.6 cm2 Ao V2 VTI: 24.8 cm SUDHIR(V,D): 2.3 cm2 sev ratio: 0.64 SUDHIR indexed to BSA (cm^2/m^2): 1.3 AI P1/2t: 512.0 msec AI dec slope: 218.8 cm/sec2 MV E max omar: 104.8 cm/sec TR max omar: 217.4 cm/sec MV A max omar: 23.7 cm/sec TR max P.9 mmHg MV E/A: 4.4 PA V2 max: 94.3 cm/sec Med Peak E' Omar: 6.6 cm/sec PA V2 mean: 60.7 cm/sec E/E' med: 16.0 PA mean P.6 mmHg Lat Peak E' Omar: 11.1 cm/sec PA pr(Accel): 40.2 mmHg E/E' lat: 9.5 E/e' average: 12.7 MV dec time: 0.16 sec SV(LVOT): 65.1 ml Reading Physician:05:08 PM
== END ==
LOC: ECHO 07:54
PROVIDERS: PCP Family Medicine; Referring Provider Internal Medicine Cardiovascular Disease; Visit Provider Internal Medicine Cardiovascular Disease
DX: I08.3 Combined rheumatic disorders of mitral, aortic and tricuspid valves (principal); I77.89 Other specified disorders of arteries and arterioles; I48.20 Chronic atrial fibrillation, unspecified; R07.9 Chest pain, unspecified; Z95.0 Presence of cardiac pacemaker
CPT/HCPCS: 93306

== ENCOUNTER → 2024-04-07 10:09 | Outpatient (CLI) | payer OTHER, SELFPAY ==
[2022-03-30 16:51] VITALS: BMI 34.9
[2024-04-07 12:14] LABS: Hemoglobin A1C% w Est Avg Glu 6.4 % (4.0-6.0)
[2024-04-07 12:28] LABS: Alanine Aminotransferase 20 IU/L (<50); Albumin 3.6 g/dL (3.5-5.0); Albumin Globulin Ratio 1.1 (1.0-2.8); Alkaline Phosphatase 66 U/L (38-126); Aspartate Aminotransferase 27 IU/L (17-59); BUN Creatinine Ratio 15.4 (6-22); Blood Urea Nitrogen 19 mg/dL (9-20); Calcium 9.7 mg/dL (8.4-10.2); Carbon Dioxide 23 mmol/L (22-32); Chloride 106 mmol/L (98-107); Cholesterol 142 mg/dL (140-199); Estimated Glomerular Filt Rate 57 mL/min (>60); Globulin 3.3 g/dL (1.7-4.1); Glucose 171 mg/dL (80-110); HDL Cholesterol 42 mg/dL (40-60); HEMOLYSIS < 15 (0-50); LDL Cholesterol Calculated 82 mg/dL (<100); Potassium 4.7 mmol/L (3.4-5.1); Sodium 134 mmol/L (137-145); Total Protein 6.9 g/dL (6.3-8.2); Triglycerides 91 mg/dL (35-150)
== END ==
PROVIDERS: PCP Family Medicine; Referring Provider Family Medicine; Visit Provider Family Medicine
DX: E11.9 Type 2 diabetes mellitus without complications (principal); I10 Essential (primary) hypertension; E78.5 Hyperlipidemia, unspecified
CPT/HCPCS: 36415; 80053; 80061; 83036

== ENCOUNTER 2024-06-04 10:54 | Emergency (ER) | payer OTHER, SELFPAY ==
[2022-03-30 16:51] VITALS: BMI 34.9
[2024-06-04] VITALS (14 sets, daily range): BP systolic 109–154; BP diastolic 70–118; PULSE 66–89; RESP 14–18; TEMP 37.2; O2SAT 94–99; BMI 32.3
[2024-06-04 11:28] LABS: Ictotest Urine Negative (Negative); Urine Volume 10mL (spun)
[2024-06-04 11:42] LABS: Bacteria Urine Many (>30); Culture Indicated Urine Specimen Cultured; RBC Urine 0-1/HPF (0-5/HPF); Squamous Epithelial Cell Urine 0-1 /HPF (0-5/HPF); WBC Urine 10-30/HPF (0-5/HPF)
[2024-06-04 13:12] LABS: Add Manual Diff / Slide Review NO; Basophils Absolute Auto 100 /uL (0-100); Basophils Percent Auto 0.9 % (0-2); Eosinophils Absolute Auto 300 /uL (0-450); Eosinophils Percent Auto 3.8 % (2-4); Hemoglobin 14.2 g/dL (13.5-17.5); Lymphocytes Absolute Auto 1700 /uL (1100-4500); Lymphocytes Percent Auto 24.3 % (25-40); Mean Corpuscular HGB Conc 33.8 % (30-36); Mean Corpuscular Hemoglobin 30.8 PG (26-34); Mean Corpuscular Volume 91.1 fL (80-100); Monocytes Absolute Auto 600 /uL (0-900); Monocytes Percent Auto 9.3 % (3-14); Neutrophils Absolute Auto 4300 /uL (1500-7000); Neutrophils Percent Auto 61.7 % (50-75); Platelet Count 233 X10^3/uL (150-400); Red Blood Cell Count 4.61 X10^6/uL (4.5-5.9); White Blood Cell Count 6.9 X10^3/uL (4.5-11.0)
[2024-06-04 13:23] LABS: Alanine Aminotransferase 21 IU/L (<50); Albumin 3.9 g/dL (3.5-5.0); Albumin Globulin Ratio 1.2 (1.0-2.8); Alkaline Phosphatase 58 U/L (38-126); Aspartate Aminotransferase 31 IU/L (17-59); BUN Creatinine Ratio 16.5 (6-22); Blood Urea Nitrogen 19 mg/dL (9-20); Calcium 9.6 mg/dL (8.4-10.2); Carbon Dioxide 21 mmol/L (22-32); Chloride 107 mmol/L (98-107); Estimated Glomerular Filt Rate > 60 mL/min (>60); Globulin 3.3 g/dL (1.7-4.1); Glucose 141 mg/dL (80-110); HEMOLYSIS 27 (0-50); Potassium 4.1 mmol/L (3.4-5.1); Sodium 135 mmol/L (137-145); Total Protein 7.2 g/dL (6.3-8.2)
--- NOTE | 2024-06-04 15:55 | ED_ITS ---
HPI - Abdominal Pain General Chief Complaint: Urogenital-Male Stated Complaint: bilat kidney px dark urine sent by Dr. Fairchild Time Seen by Provider: 06/04/24 15:55 Source: patient Mode of arrival: Ambulatory History of Present Illness HPI narrative: Patient is a 88-year-old male history of hypertension chronic atrial fibrillation with a defibrillator, hyperlipidemia presenting today with dark urine and bilateral back pain. He reports it has been ongoing for about 3 days. Never radiating around to his groin. No nausea or vomiting no fevers. He noted some dark urine this morning. He has absolutely no chest pain or shortness breath. He now reports while in the ED his pain suddenly went away. He has not received any sort of pain medication. He overall appears well. Urinalysis is positive for UTI Related Data Previous Rx's Medication Instructions Recorded Disabled parking permit #1 ea 01/18/23 blood-glucose meter (OneTouch #1 kit 08/19/23 Verio Flex Start kit) losartan 25 mg tablet 25 mg PO BID #180 tabs 10/07/23 tamsulosin 0.4 mg capsule See Rx Instructions PO BID #180 01/21/24 caps metoprolol tartrate 100 mg tablet 100 mg PO BID 90 days #180 tabs 01/23/24 finasteride 5 mg tablet 5 mg PO BEDTIME #90 tabs 02/10/24 spironolactone 25 mg tablet See Rx Instructions .Route 04/14/24 .COMPLEX #90 tabs dabigatran etexilate 150 mg See Rx Instructions .Route 06/01/24 capsule (Pradaxa) .COMPLEX #180 caps cefdinir 300 mg capsule 300 mg PO Q12H #14 caps 06/04/24 Allergies Allergy/AdvReac Type Severity Reaction Status Date / Time lisinopril [LISINOPRIL] AdvReac Mild DRY COUGH Verified 06/04/24 11:00 Patient History Medical History Obstructive sleep apnea Loss of hearing Cardiac defibrillator in place Brain TIA Skin tag Acute prostatitis Foot ulcer Toe pain Wound of skin 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 History of hematuria Dysuria Urinary frequency Right shoulder pain Foot fracture, right Diabetic foot ulcer Chronic UTI Atrial fibrillation, chronic Coronary artery disease Hyperlipidemia Type 2 diabetes mellitus Hypertension Surgical History AICD (automatic cardioverter/defibrillator) present Family History Mother Congestive heart failure Pneumonia Father Pneumonia Social History household members: spouse Smoking Status: Never smoker alcohol intake: former substance use type: marijuana Smoking Status: Never smoker alcohol intake frequency: other Exam Initial Vital Signs Initial Vital Signs: Vital Signs Temperature 98.9 F 06/04/24 11:00 Pulse Rate 89 06/04/24 11:00 Respiratory Rate 14 06/04/24 11:00 Blood Pressure 149/81 H 06/04/24 11:00 Pulse Oximetry 97 06/04/24 11:00 Oxygen Delivery Method Room Air 06/04/24 11:00 GENERAL: Alert pleasant well-appearing 88-year-old and in no acute distress. HEENT: Head atraumatic,EOMI, pupils reactive, face symmetric, moist mucous membranes CARDIOVASCULAR: Regular rate and rhythm without murmurs, rubs or gallops. RESPIRATORY: Breath sounds equal bilaterally, no wheezes rales or rhonchi. ABDOMEN: Soft, nontender. Normoactive bowel sounds all 4 quadrants. No guarding or rebound. Negative Riggins's sign no epigastric pain : No CVA tenderness EXTREMITIES: Normal range of motion, no clubbing or edema. Neurovascularly intact NEUROLOGICAL: Alert and oriented x4.Normal gait and speech. SKIN: Warm, dry, no laceration, no petechiae, no rashes or lesions. Course Orders Ordered: ED Orders 06/04/24 11:07 Ictotest Urine Stat Urine Culture Stat Urine Microscopic Stat 06/04/24 13:02 CBC Auto Diff [Complete Blood Count AUTO DIFF] Stat CMP [Comprehensive Metabolic Panel] Stat 06/04/24 13:12 Lactate (Lactic Acid) Stat 06/04/24 13:19 Blood Culture Stat 06/04/24 16:03 CT kidney ureter bladder (KUB) Stat Discontinued Medications Ceftriaxone Sodium 1,000 mg/ (Sodium Chloride) 100 mls @ 200 mls/hr IV NOW ONE Stop: 06/04/24 16:04 Last Infusion: 06/04/24 17:25 Dose: Infused Documented By: Admin: 06/04/24 16:38 Dose: 200 mls/hr Documented By: MARIE Vital Signs Vital signs: Vital Signs - 8 hr 06/04/24 13:14 06/04/24 13:30 06/04/24 13:30 Pulse Rate 67 66 Respiratory Rate 18 Blood Pressure 109/70 Pulse Oximetry 96 94 Oxygen Delivery Method 06/04/24 14:00 06/04/24 14:00 06/04/24 14:30 Pulse Rate 66 Respiratory Rate Blood Pressure 147/70 H 145/89 H Pulse Oximetry 97 Oxygen Delivery Method 06/04/24 14:30 06/04/24 15:00 06/04/24 15:08 Pulse Rate 69 77 Respiratory Rate Blood Pressure 143/72 H Pulse Oximetry 96 98 Oxygen Delivery Method 06/04/24 15:08 06/04/24 15:30 06/04/24 15:30 Pulse Rate 81 78 Respiratory Rate Blood Pressure 145/81 H Pulse Oximetry 99 99 Oxygen Delivery Method 06/04/24 16:00 06/04/24 16:01 06/04/24 16:01 Pulse Rate 77 76 Respiratory Rate Blood Pressure 154/118 H Pulse Oximetry 97 97 Oxygen Delivery Method 06/04/24 16:30 06/04/24 17:00 06/04/24 17:15 Pulse Rate 75 67 Respiratory Rate Blood Pressure 135/71 Pulse Oximetry 98 96 Oxygen Delivery Method 06/04/24 17:15 06/04/24 17:18 Pulse Rate 69 68 Respiratory Rate 18 Blood Pressure 135/71 Pulse Oximetry 97 97 Oxygen Delivery Method Room Air MDM - Abdominal Pain Lab Data 06/04/24 13:02 06/04/24 13:02 Labs: Lab Results 06/04/24 06/04/24 06/04/24 Range/Units 11:07 13:02 13:12 WBC 6.9 (4.5-11.0) X10^3/uL RBC 4.61 (4.5-5.9) X10^6/uL Hgb 14.2 (13.5-17.5) g/dL Hct 42.0 (41-53) % MCV 91.1 (80-100) fL MCH 30.8 (26-34) PG MCHC 33.8 (30-36) % RDW 14.0 (11.6-14.8) % Plt Count 233 (150-400) X10^3/uL Neut % (Auto) 61.7 (50-75) % Lymph % (Auto) 24.3 L (25-40) % [place] % (Auto) 9.3 (3-14) % Eos % (Auto) 3.8 (2-4) % Baso % (Auto) 0.9 (0-2) % Neut # (Auto) 4300 (3290-1860) /uL Lymph # (Auto) 1700 (4898-1423) /uL [place] # (Auto) 600 (0-900) /uL Eos # (Auto) 300 (0-450) /uL Baso # (Auto) 100 (0-100) /uL Sodium 135 L (137-145) mmol/L Potassium 4.1 (3.4-5.1) mmol/L Chloride 107 (98-107) mmol/L Carbon Dioxide 21 L (22-32) mmol/L BUN 19 (9-20) mg/dL Creatinine 1.15 (0.66-1.25) mg/dL Estimated GFR > 60 (>60) mL/min BUN/Creatinine Ratio 16.5 (6-22) Glucose 141 H (80-110) mg/dL Lactate 1.0 (0.7-2.1) mmol/L Calcium 9.6 (8.4-10.2) mg/dL Total Bilirubin 1.0 (0.2-1.3) mg/dL AST 31 (17-59) IU/L ALT 21 (<50) IU/L Alkaline Phosphatase 58 (38-126) U/L Total Protein 7.2 (6.3-8.2) g/dL Albumin 3.9 (3.5-5.0) g/dL Globulin 3.3 (1.7-4.1) g/dL Albumin/Globulin Ratio 1.2 (1.0-2.8) Ur Bilirubin Confirm Negative (Negative) Urine RBC 0-1/hpf D (0-5/HPF) Urine WBC 10-30/hpf H (0-5/HPF) Ur Squamous Epith Cells 0-1 /hpf (0-5/HPF) Urine Bacteria Many (>30) H (None) Ur Culture Indicated? Specimen cultured Vol Urine Centrifuged 10ml (spun) Point of care testing: Urine Dip Bedside Urine Glucose Negative Bedside Urine Bilirubin - Negative Bedside Urine Ketone +/- 5 Urine Specific [place] 1.025 Bedside Urine Occult Blood ++ Bedside Urine pH 5.5 Bedside Urine Protein - Negative Bedside Urine Urobilinogen - Negative Bedside Urine Nitrite + Positive Bedside Urine Leukocytes +++ [address] scan - abdomen/pelvis: Radiologist's Impression: PROCEDURE: CT KIDNEY URETER BLADDER (KUB) INDICATIONS: bilateral flank pain TECHNIQUE: Axial sections were acquired from the lung bases to the pubic symphysis. Coronal and sagittal reformats were performed. For radiation dose reduction, the following was used: automated exposure control, adjustment of mA and/or kV according to patient size. COMPARISON: [facility], CT, CT KIDNEY URETER BLADDER (KUB), 09/16/2021, 17:24. FINDINGS: Image quality: Diagnostic. Lower Chest: Calcified granulomas are seen in the lung bases. Heart is enlarged. URINARY: Right Kidney: Chronic cortical scarring at the inferior pole. No stones or hydronephrosis. Right Ureter: No hydroureter. Left Kidney: No stones or hydronephrosis. Left Ureter: No hydroureter. Bladder: Normal wall thickness. No stones. ABDOMEN: Liver: No contour-deforming solid mass. Gallbladder: Large gallstone again seen, which abuts the distal stomach/proximal duodenal wall. Biliary ducts: Mild pneumobilia. No biliary duct dilatation. Pancreas: No ductal dilation. Spleen: Size is within normal limits. Adrenal Glands: No adrenal nodules. Stomach and Bowel: Multiple diverticula are seen in the colon without signs of acute diverticulitis. Moderate to large volume of colonic stool. Small bowel loops are nondilated. Peritoneum: No abnormal intraperitoneal fluid. No free air. Ventral Wall: No hernia. Abdominal Nodes: No enlarged retroperitoneal or mesenteric lymph nodes. Vessels: Aorta and inferior vena cava are normal in size. PELVIS: Pelvic Organs: Prostate is enlarged and contains coarse calcifications.. Pelvic Nodes: Unremarkable. Miscellaneous: No inguinal hernias are seen. Bones: Degenerative changes in the hips, sacroiliac joints, and spine. IMPRESSION: 1. No obstructing stones or hydronephrosis. 2. Large gallstone abuts the adjacent 1st portion of the duodenum without a clear fat plane, and developing fistula is not excluded. No significant surrounding inflammatory changes. 3. Mild central pneumobilia without biliary duct dilatation, which is of uncertain etiology. Correlate for recent instrumentation. 4. Colonic diverticulosis without acute diverticulitis. 5. Marked prostatomegaly. Approved by: Aleksandr Will M.D. on 06/04/2024 at 16:39 MDM Narrative Medical decision making narrative: MDM CC: Dark urination Complicating co-morbidities: AICD on Pradaxa Medical records reviewed: Previous culture from 06/25/2023 was positive for Pseudomonas which was pansensitive previously in 2022 he had an E coli UTI with resistant to fluoroquinolones Differential considered: Sepsis nephrolithiasis, cholelithiasis Exam documented above, pertinent findings include: Alert well-appearing 88-year-old male no significant CVA tenderness negative Riggins's sign Lab Test results independently reviewed as above. Pertinent findings: Urinalysis positive for nitrates, many bacteria leukocytes consistent with UTI WBC 6.9 hemoglobin 14.2 hematocrit 42 platelets 233 Sodium sodium 135 potassium 4.1 chloride 107 carbon dioxide 21 BUN 19 creatinine 1.1 Lactate 1.0 Imaging studies independently reviewed: CT does not show any nephrolithiasis does show 1 large gallstone. Treatments: Rocephin Re-evaluations: Patient is not having any back pain he has no nausea or vomiting he overall appears well and nontoxic Discussion: 88-year-old male presenting today with dark urine and bilateral back pain. I suspect pyelonephritis however he has no evidence nephrolithiasis. He has no evidence of sepsis he has no fever leukocytosis or elevated lactate. Urinalysis is positive for nitrites and leukocytes consistent with a UTI. He was given 1 dose of Rocephin here in the ED. CT does show 1 large gallstone but he has no elevated bilirubin liver enzymes and negative Riggins's sign on exam. This is reported stable from previous exams. Updated and patient about gallstone it does not seem to be causing problems this time recommend outpatient surgery evaluation if needed Discharge Plan Departure Patient Disposition: Home Clinical Impression: Acute UTI, Gallstone Instructions: DI for Urinary Tract Infection (UTI) Activity Restrictions/Additional Instructions: *You have been diagnosed with UTI *What to do: At this time you do have a bladder infection. Hopefully you start feeling better within a couple days of antibiotics may take Tylenol as needed for pain You also have a gallstone. It does not seem to be causing you issue or problems today. However you may need to talk to surgery if you start having pain in vomiting and fever *Continue to take medications as directed Cefdinir 300 mg twice a day for 7 days *Follow up with your primary care provider in 2-3 days or call [phone] *Return to ER if you should have increasing back pain nausea vomiting [or] any new, worsening or concerning symptoms Prescriptions: New cefdinir 300 mg capsule 300 mg PO Q12H Qty: 14 0RF No Action (DME) Disabled parking permit See Rx Instructions .ROUTE .MEDSUPPLY Qty: 1 0RF Rx Instructions: I find this patient to be medically disabled and qualified for disabled parking as indicated, and signed, on the accompanying disabled parking application for individuals. (DME) blood-glucose meter [[employer] Verio Flex Start] Kit See Rx Instructions .ROUTE .COMPLEX Qty: 1 1RF Dose Instruction: Use as directed to monitor blood sugar Rx Instructions: Use as directed to monitor blood sugar losartan 25 mg tablet 25 mg PO BID Qty: 180 3RF tamsulosin 0.4 mg capsule See Rx Instructions PO BID Qty: 180 3RF Dose Instruction: Take 1 capsule (0.4 mg) by mouth every morning Rx Instructions: Take 1 capsule (0.4 mg) by mouth every morning orally twice a day; metoprolol tartrate 100 mg tablet 100 mg PO BID 90 Days Qty: 180 2RF finasteride 5 mg tablet 5 mg PO BEDTIME Qty: 90 3RF spironolactone 25 mg tablet See Rx Instructions .ROUTE .COMPLEX Qty: 90 3RF Dose Instruction: Take 1 tablet (25 mg) by mouth daily Rx Instructions: Take 1 tablet (25 mg) by mouth daily Pradaxa 150 mg capsule See Rx Instructions .ROUTE .COMPLEX Qty: 180 3RF Dose Instruction: Take 1 capsule (150 mg) by mouth 2 times daily Rx Instructions: Take 1 capsule (150 mg) by mouth 2 times daily Referrals: Boyd Fairchild, [Primary Care Provider] - Stand Alone Forms: Patient Portal/API/Survey
--- NOTE | 2024-06-04 16:03 | DI.CT.S_ITS ---
PROCEDURE: CT KIDNEY URETER BLADDER (KUB) INDICATIONS: bilateral flank pain TECHNIQUE: Axial sections were acquired from the lung bases to the pubic symphysis. Coronal and sagittal reformats were performed. For radiation dose reduction, the following was used: automated exposure control, adjustment of mA and/or kV according to patient size. COMPARISON: [facility], CT, CT KIDNEY URETER BLADDER (KUB), 09/16/2021, 17:24. FINDINGS: Image quality: Diagnostic. Lower Chest: Calcified granulomas are seen in the lung bases. Heart is enlarged. URINARY: Right Kidney: Chronic cortical scarring at the inferior pole. No stones or hydronephrosis. Right Ureter: No hydroureter. Left Kidney: No stones or hydronephrosis. Left Ureter: No hydroureter. Bladder: Normal wall thickness. No stones. ABDOMEN: Liver: No contour-deforming solid mass. Gallbladder: Large gallstone again seen, which abuts the distal stomach/proximal duodenal wall. Biliary ducts: Mild pneumobilia. No biliary duct dilatation. Pancreas: No ductal dilation. Spleen: Size is within normal limits. Adrenal Glands: No adrenal nodules. Stomach and Bowel: Multiple diverticula are seen in the colon without signs of acute diverticulitis. Moderate to large volume of colonic stool. Small bowel loops are nondilated. Peritoneum: No abnormal intraperitoneal fluid. No free air. Ventral Wall: No hernia. Abdominal Nodes: No enlarged retroperitoneal or mesenteric lymph nodes. Vessels: Aorta and inferior vena cava are normal in size. PELVIS: Pelvic Organs: Prostate is enlarged and contains coarse calcifications.. Pelvic Nodes: Unremarkable. Miscellaneous: No inguinal hernias are seen. Bones: Degenerative changes in the hips, sacroiliac joints, and spine. IMPRESSION: 1. No obstructing stones or hydronephrosis. 2. Large gallstone abuts the adjacent 1st portion of the duodenum without a clear fat plane, and developing fistula is not excluded. No significant surrounding inflammatory changes. 3. Mild central pneumobilia without biliary duct dilatation, which is of uncertain etiology. Correlate for recent instrumentation. 4. Colonic diverticulosis without acute diverticulitis. 5. Marked prostatomegaly. Approved by: Aleksandr Will M.D. on 06/04/2024 at 16:39
[2024-06-04] MEDS: cefTRIAXone 1,000 MG in SODIUM CHLORIDE 0.9% 100 ML 200 MG IV (16:38)
== END 2024-06-04 17:25 | disposition home or self-care (01) ==
PROVIDERS: Emergency Provider Emergency Medicine; PCP Family Medicine
DX: N39.0 Urinary tract infection, site not specified (principal); K80.20 Calculus of gallbladder without cholecystitis without obstruction
CPT/HCPCS: 36415; 74176; 80053; 81003; 81015; 83605; 85025; 87040; 87077; 87086; 87186; 96365; 99284; J0696

== ENCOUNTER → 2024-09-11 18:54 | Outpatient (CLI) | payer OTHER, SELFPAY ==
[2022-03-30 16:51] VITALS: BMI 34.9
== END ==
PROVIDERS: PCP Family Medicine; Visit Provider Nurse Practitioner Family
DX: R82.90 Unspecified abnormal findings in urine (principal)
CPT/HCPCS: 87077; 87086; 87186

== ENCOUNTER → 2024-09-15 09:32 | Outpatient (CLI) | payer OTHER, SELFPAY ==
[2022-03-30 16:51] VITALS: BMI 34.9
[2024-09-15 10:45] LABS: Hemoglobin A1C% w Est Avg Glu 6.3 % (4.0-6.0)
[2024-09-15 11:15] LABS: Alanine Aminotransferase 19 IU/L (<50); Albumin 3.9 g/dL (3.5-5.0); Albumin Globulin Ratio 1.3 (1.0-2.8); Alkaline Phosphatase 61 U/L (38-126); Aspartate Aminotransferase 28 IU/L (17-59); BUN Creatinine Ratio 12.5 (6-22); Bilirubin Total 1.1 mg/dL (0.2-1.3); Blood Urea Nitrogen 16 mg/dL (9-20); Calcium 9.7 mg/dL (8.4-10.2); Carbon Dioxide 25 mmol/L (22-32); Chloride 104 mmol/L (98-107); Estimated Glomerular Filt Rate 54 mL/min (>60); Globulin 2.9 g/dL (1.7-4.1); Glucose 140 mg/dL (70-99); HEMOLYSIS 18 (0-50); Sodium 136 mmol/L (137-145); Total Protein 6.8 g/dL (6.3-8.2)
== END ==
PROVIDERS: PCP Family Medicine; Referring Provider Family Medicine; Visit Provider Family Medicine
DX: E11.40 Type 2 diabetes mellitus with diabetic neuropathy, unspecified (principal); I10 Essential (primary) hypertension
CPT/HCPCS: 36415; 80053; 83036

== ENCOUNTER → 2024-09-27 15:41 | Outpatient (CLI) | payer OTHER, SELFPAY ==
[2022-03-30 16:51] VITALS: BMI 34.9
[2024-09-27 16:25] LABS: Influenza A - CEPHEID Flu A NEGATIVE (NEGATIVE); Influenza B - CEPHEID Flu B NEGATIVE (NEGATIVE); Respiratory Syncytial Virus Negative (Negative)
[2024-09-27 16:26] LABS: COVID-19 CEPHEID 4-PLEX PCR Negative (Negative)
== END ==
LOC: LAB 15:42
PROVIDERS: PCP Family Medicine; Visit Provider Physician Assistant Surgical
DX: R05.1 Acute cough (principal)
CPT/HCPCS: 0241U

== ENCOUNTER → 2024-09-27 16:15 | Outpatient (CLI) | payer OTHER, SELFPAY ==
[2022-03-30 16:51] VITALS: BMI 34.9
--- NOTE | 2024-09-27 16:17 | DI.RAD.S_ITS ---
PROCEDURE: XR CHEST 2V INDICATIONS: Cough, chest congestion, crackles TECHNIQUE: 2 views of the chest were acquired. COMPARISON: [facility], , XR CHEST 2V, 01/23/2023, 12:01. FINDINGS: Surgical changes and devices: An AICD is seen. The leads are seen in stable positions. Lungs and pleura: Lungs are clear, get hyperexpanded. No pleural effusions or pneumothorax. Mediastinum: Mediastinal contours are normal. Heart size is mildly to moderately enlarged. The aorta is prominent and tortuous. Atherosclerotic calcification of the aortic arch is noted. Bones and chest wall: No suspicious bony abnormalities. Mild midthoracic spine anterior wedge deformities are seen, with associated accentuated thoracic kyphosis. Age-appropriate bony degenerative changes are seen. Soft tissues appear unremarkable. IMPRESSION: Hyperexpanded lungs, without a focal pulmonary abnormality. No focal infiltrates are seen. There is moderate cardiomegaly. Postoperative and degenerative changes are seen. Dictated by: Pierre Mo M.D. on 09/27/2024 at 15:40 Approved by: Pierre Mo M.D. on 09/27/2024 at 15:42
== END ==
LOC: RAD 16:16
PROVIDERS: PCP Family Medicine; Referring Provider Physician Assistant Surgical; Visit Provider Physician Assistant Surgical
DX: I51.7 Cardiomegaly (principal); R05.1 Acute cough; R09.89 Other specified symptoms and signs involving the circulatory and respiratory systems; I70.0 Atherosclerosis of aorta; M40.204 Unspecified kyphosis, thoracic region
CPT/HCPCS: 0241U; 71046

== ENCOUNTER → 2024-10-06 08:01 | Outpatient (CLI) | payer OTHER, SELFPAY ==
[2022-03-30 16:51] VITALS: BMI 34.9
[2024-10-06 09:37] LABS: Alanine Aminotransferase 18 IU/L (<50); Albumin 3.7 g/dL (3.5-5.0); Albumin Globulin Ratio 1.2 (1.0-2.8); Alkaline Phosphatase 60 U/L (38-126); Aspartate Aminotransferase 27 IU/L (17-59); BUN Creatinine Ratio 12.7 (6-22); Blood Urea Nitrogen 14 mg/dL (9-20); Calcium 9.5 mg/dL (8.4-10.2); Carbon Dioxide 23 mmol/L (22-32); Chloride 106 mmol/L (98-107); Estimated Glomerular Filt Rate > 60 mL/min (>60); Glucose 135 mg/dL (70-99); HEMOLYSIS < 15 (0-50); Potassium 4.6 mmol/L (3.4-5.1); Sodium 137 mmol/L (137-145); Total Protein 6.7 g/dL (6.3-8.2)
== END ==
PROVIDERS: PCP Family Medicine; Referring Provider Nurse Practitioner; Visit Provider Nurse Practitioner
DX: I48.91 Unspecified atrial fibrillation (principal)
CPT/HCPCS: 36415; 80053